=== PATIENT | female | born 1950 | race Caucasian/White ===

== ENCOUNTER 2017-06-25 07:47 | Observation (INO) | payer OTHER ==
[2017-06-25] VITALS (12 sets, daily range): BP systolic 107–152; BP diastolic 58–86; PULSE 60–77; TEMP 36.5–36.9; O2SAT 94–99; BMI 33.0; BMI 34.5
[~2017-06-25] VITALS: Ht 149.9 cm; Wt 75.2 kg
[~2017-06-25 07:47] MED LIST: ASPI-435 PO; ATOR-26 PO; CITA40TA4 PO; CLOP1TAB15 PO; INSDGI SC; ISOS30TA3 PO; LANS30CA41 PO; LISI-725 PO; LISI-789 PO; LPT40 PO; METF-384 PO; METO25TA3 PO; NTRGSL/4 SL; PANT40TA PO; PEDICHW53; PLV75 PO
[2017-06-25] MEDS ORDERED: FENTANYL CITRATE INJ 50 MCG/1 ML 2 ML VIAL ONE (09:36)
[2017-06-25] MEDS ORDERED: MIDAZOLAM HCL 1 MG/ML 2ML VIAL ONE ×2 (09:36→10:33)
[2017-06-25] MEDS ORDERED: NiCARDipine HCL INJ 2.5 MG/ML 10 ML AMP ONE (10:31)
[2017-06-25] MEDS ORDERED: NITROGLYCERIN/D5W 100MCG/ML 20ML SYR ONE (10:31)
[2017-06-25] MEDS ORDERED: HEPARIN SOD (PORCINE) 1000 UNIT/ML 10 ML VIAL ONE (10:35)
--- NOTE | 2017-06-25 10:43 | Procedure Note ---
Pre-Mod Sedation Assessment General Date of Moderate Sedation: Jun 25, 2017. Vital Signs: Vital Signs Past 12 Hours Date Time Temp Pulse Resp B/P (MAP) Pulse Ox O2 Delivery O2 Flow Rate FiO2 06/25/17 08:58 36.5 60 16 152/69 99 Room Air Review Cardiovascular: regular rate, rhythm, no edema, no gallop Abdomen: normal bowel sounds, non tender, soft Lungs: chest non-tender, lungs clear, normal breath sounds Pre-Sedation Airway Assessment Oral Cavity: Chipped Teeth Short Thick Neck: No Hx of Sleep Apnea: No Smoking Status: Former Smoker Mallampati Classification: Class III ASA Classification: Class IV Procedure Planning Contraindications-for Mod Sed: None Yes Notes The planned sedation has been discussed with the patient and consent obtained. I have identified the patient, determined the appropriateness of sedation and have assessed the patient immediately prior to the procedure. All medicine(s) and interventions are by my order.
--- NOTE | 2017-06-25 10:44 | History & Physical Bridge Note ---
H&P Re-Evaluation Bridge Note: I have examined the patient, reviewed the History & Physical and in the interval since the performance of the History & Physical I have noted the following changes of clinical significance: No changes noted
--- NOTE | 2017-06-25 10:45 | Procedure Note ---
Post-Mod Sedation Assessment General Date of Moderate Sedation Jun 25, 2017. Vital Signs: Vital Signs Past 12 Hours Date Time Temp Pulse Resp B/P (MAP) Pulse Ox O2 Delivery O2 Flow Rate FiO2 06/25/17 08:58 36.5 60 16 152/69 99 Room Air Review - Discharge Criteria Vital Signs Stable: Yes Alert/Oriented/Conversant: Yes Returned to Baseline Mental St: Yes Nausea Absent/Minimal: Yes Pain/Discomfort/Absent/Minimal: Yes Normal/Baseline Respirations: Yes Active Bleeding?: No Pt Received D/C Instructions: N/A Prescriptions Given: None Specific Proced. D/C Criteria Distal Pulses Present (Cardiac: Yes Groin site assessed-Card Cath: Yes Voided Prior To Discharge: N/A Discharged Patients Adult Escort/Transportation: Yes
--- NOTE | 2017-06-25 10:59 | Cardiac Catheterization ---
Procedure Note Procedure Date Jun 25, 2017. Pre-Procedure Diagnosis Angina, CAD, Cardiothoracic Symptom AUC Score 8 Post-Procedure Diagnosis Severe CAD Procedure(s) Performed Coronary Angiography, Left Heart Cath Professor Of Medicine Dr. Zamora Shoe Folder(s) Hernan RTR Estimated Blood Loss 8cc Medication(s) Fentanyl, Versed, Lidocaine 1% Summary of Findings Severe ostial RCA in-stent restenosis. 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 ACC Data Cardiac Status Clinical evaluation leading to the procedure CAD Presntation: Unstable angina Anginal Classification: CCS III Heart Failure: No Cardiogenic Shock w/in 24Hrs: No Cardiac Arrest w/in 24Hrs: No Imaging studies past 6 months: No Stress studies past 6 months: No Coronary Anatomy Dominant: Right Left Main (% Stenosis): Normal LAD (% Stenosis): Ostial (0%), Proximal (20%, Mild to moderate calcification.) , Mid (30% to D1), Distal (10%) D1 (% Stenosis): Normal Circumflex (% Stenosis): Ostial (10%), Proximal (10%), Mid (20%), Distal (10%) OM1 (% Stenosis): Ostial (40%), Proximal (0%), Mid (0%), Distal (0%) RCA (% Stenosis): Ostial (80% in-stent restensosis), Proximal (80% in-stent restenosis), Mid (20%), Distal (10%) R PDA (% Stenosis): Ostial (0%), Proximal (10%), Mid (10%), Distal (10%) R PL1 (% Stenosis): Normal Diagnostic Status: Elective Closure Device Percutaneous Entry Location: Femoral Recommendations: PCI without planned CABG Intraprocedure Events Significant Dissection: No Perforation: No
[2017-06-25] MEDS ORDERED: CLOPIDOGREL BISULFATE 300 MG TAB PO ONE (11:47)
[2017-06-25] MEDS ORDERED: ATROPINE SULFATE 0.1 MG/ML 10 ML SYR ONE (11:50)
[2017-06-25] MEDS ORDERED: ONDANSETRON INJ 2 MG/ML 2 ML VIAL IV PRN (12:15)
[2017-06-25] MEDS ORDERED: DEXTROSE 50% 50 ML SYR IV PRN ×2 (12:15→13:00)
[2017-06-25] MEDS ORDERED: GLUCOSE 10 TABS/TUBE PO PRN ×2 (12:15→13:00)
[2017-06-25] MEDS ORDERED: GLUCOSE 40% GEL 15 GM TUBE PO PRN ×2 (12:15→13:00)
[2017-06-25] MEDS ORDERED: SODIUM CHLORIDE 0.9% 1000ML 1,000 ML IV SCH (12:15)
[2017-06-25] MEDS ORDERED: GLUCAGON FOR INJ 1 MG VIAL SQ PRN ×2 (12:15→13:00)
[2017-06-25] MEDS ORDERED: ACETAMINOPHEN 325 MG TAB PO PRN (12:15)
[2017-06-25] MEDS ORDERED: NITROGLYCERIN 0.4 MG SL PER TAB CHARGE SL PRN ×2 (12:15)
--- NOTE | 2017-06-25 13:09 | Cardiac Catheterization ---
Procedure Note Procedure Date Jun 25, 2017. Pre-Procedure Diagnosis Angina, CAD AUC Score 7 Post-Procedure Diagnosis Severe CAD, Successful PCI Procedure(s) Performed Drug Eluting Stent Photolithographic Stripper Jaswant Jazz Musician(s) Hernan Estimated Blood Loss 20 Medication(s) Clopidogrel, Fentanyl, Heparin, Versed Summary of Findings Indication: Angina, In-stent restenosis Access: 6Fr Right Femoral Artery Catheters: JR4, AR1 guides attempted; successful cannulation with Hockey Stick guide For full details of patient's coronary angiography see Cath Report dictated by Dr. Zamora from earlier today. -- PCI -- Antithrombotic therapy: Heparin Procedure: RCA cannulated with Hockey Stick Guide BMW wire passed across lesion into distal vessel Ostial RCA lesion predilated with 2.0 and 3.0 compliant balloons Dilated lesion stented with 3.5 x 22 Resolute NAILA Stent post-dilated with 4.0 noncompliant balloon Stent appears to hang out minimally into the aorta but well-expanded Post procedure LILO 3 flow, and no apparent cardiac complications. Arterial Closure: AngioSeal Summary: 1. Successful PCI of ostial RCA instent restenosis with one drug-eluting stent ( 3.5 x 22 Resolute, post-dilated to 4.0 Recommendations: To PCU for continued monitoring Re-loaded with clopidogrel 300 mg Continue dual-antiplatelet therapy with ASA/clopidogrel for 1 year Continue ASCVD risk factor modification per Dr. Zamora Hemodynamics Rest Ao: 131/64/92 Final Ao: 163/73/108 LV: 140/10 Recommendations PCI without planned CABG Specimens None Radiation Exposure (mGy) 4035 Contrast (mls) 140 Fluids (cc crystalloids) 220 Drains None Anesthesia Moderate Procedural Complication(s) None Disposition PCU ACC Data Cardiac Status Clinical evaluation leading to the procedure CAD Presntation: Unstable angina Anginal Classification: CCS III Heart Failure: No, NYHA Class: CCS I Cardiogenic Shock w/in 24Hrs: No Cardiac Arrest w/in 24Hrs: No Imaging studies past 6 months: No Stress studies past 6 months: No Standard Exercise Stress Test: No Diagnostic Physician's Name: Leo Zamora DO Status: Elective Closure Device Percutaneous Entry Location: Femoral Closure Device: Angio-Seal Recommendations: Medical therapy and/or Counseling PCI Indication: Unstable Angina, Angina despite med therapy Lesion Segment Name: Ostial RCA Culprit Artery: Yes Stenosis Prior to Rx (%): 80 Chronic Total Occlusion: No IVUS: No FFR: No Pre-Procedure LILO Flow: 3 Previously Treated Lesion: Yes Treated Lesion: Timeframe: 6-12 months Treated with Stent: Yes In-Stent Restenosis: Yes In-Stent Thrombosis: No Stent Type: NAILA Lesion Complexity: High/C Lesion Length (mm): 12 Thrombus Present: No Bifurcation Lesion: No Guidewire Across Lesion: Yes Guidewire: Stenosis Post-Procedure (%): 0 Post-Procedure LILO Flow: 3 Device(s) Deployed: Yes Intraprocedure Events Significant Dissection: No Perforation: No
[2017-06-25] MEDS ORDERED: IV FLUIDS COMPLETED PRN (13:45)
[2017-06-25] MEDS ORDERED: INSULIN ASPART 100 UNITS/ML 3 ML PEN SC SCH (16:15)
--- NOTE | 2017-06-25 16:37 | Progress Note ---
Progress Note Date of Service Jun 25, 2017. Progress Note Pt seen and examined s/p PCI to ostial RCA instent restenosis. No complaints. No groin pain. Resting comfortably.
[2017-06-25] MEDS: INSULIN ASPART 100 UNITS/ML 3 ML PEN SC SCH ×2 (17:07→21:13)
--- NOTE | 2017-06-25 19:03 | Medical Consult ---
Consultation Date of Consultation: Jun 25, 2017. Attending Physician: Leo Zamora DO Reason for Consultation: Diabetes management History of Present Illness Patient is a pleasant 66 yo female who was scheduled to undergo cardiac catheterization today; she was found to have 80% occlusion of her previously stented ostial RCA and had a NAILA placed in the same location of the in stent stenosis. She experienced some bradycardia and hypotension after the procedure and was given atropine with improvement in vitals. She feels well other than complaints of SANTILLAN and some dizziness which she feels is improving as the day progresses. Tolerating PO without difficulty, denies any other symptoms at this time. Social History Smoking Status: Former Smoker Housing Status: lives alone Allergies Coded Allergies: Cefuroxime (Verified Allergy, Unknown, HIVES, 04/20/14) Current Inpatient Medications Current Inpatient Medications Medications (Trade) Dose Ordered Sig/Deborah Route Start Time Stop Time Status Last Admin Dose Admin Nitroglycerin (Nitrostat Tab) 0.4 mg UD PRN SL 06/25/17 12:15 07/25/17 12:14 Sodium Chloride 1,000 ml @ 125 mls/hr Q8H IV 06/25/17 12:15 06/25/17 20:14 Ondansetron HCl (Zofran Inj) 4 mg Q6H PRN IV 06/25/17 12:15 07/25/17 12:14 Acetaminophen (Tylenol Tab) 650 mg Q4H PRN PO 06/25/17 12:15 07/25/17 12:14 Aspirin (Ecotrin Tab) 81 mg DAILY PO 06/26/17 09:00 07/26/17 08:59 Atorvastatin Calcium (Lipitor Tab) 80 mg DAILY PO 06/26/17 09:00 07/26/17 08:59 Citalopram Hydrobromide (celeXA TAB) 40 mg DAILY PO 06/26/17 09:00 07/26/17 08:59 Clopidogrel Bisulfate (plAVix TAB) 75 mg DAILY PO 06/26/17 09:00 07/26/17 08:59 Isosorbide Mononitrate (Imdur Ext Rel Tab) 30 mg DAILY PO 06/26/17 09:00 07/26/17 08:59 Metoprolol Succinate (Toprol Xl Tab) 25 mg DAILY PO 06/26/17 09:00 07/26/17 08:59 Pantoprazole Sodium (Protonix Tab) 40 mg DAILY PO 06/26/17 09:00 07/26/17 08:59 Glucose (Glucose 40% Gel) 15-30 GRAMS 15 GRAMS... UD PRN PO 06/25/17 12:15 07/25/17 12:14 Glucose (Glucose Chew Tab) 4-8 Tablets 4 Tabl... UD PRN PO 06/25/17 12:15 07/25/17 12:14 Dextrose (Dextrose 50% 50ML Syringe) 25-50ML OF 50% DW IV FOR... UD PRN IV 06/25/17 12:15 07/25/17 12:14 Glucagon (Glucagon Inj) 1 mg UD PRN SQ 06/25/17 12:15 07/25/17 12:14 Insulin Glargine (Lantus Solostar Pen) 10 units PM SC 06/25/17 21:00 07/25/17 20:59 Insulin Aspart (novoLOG ASPART) SLIDING SCALE If C... ACHS SC 06/25/17 16:15 07/25/17 16:14 06/25/17 17:07 7 UNITS Miscellaneous (Iv Fluids Completed) 1 ea PRN PRN N/A 06/25/17 13:45 06/25/18 13:44 Review of Systems Constitutional: No fever, No chills, No sweats, No weight loss Eyes: No worsening of vision, No eye pain, No redness, No diplopia ENT: No nasal symptoms, No sore throat, No trouble swallowing, No problem reported Respiratory: No cough, No sputum, No wheezing, No shortness of breath, No hemoptysis, No problem reported Cardiovascular: No chest pain, No edema, No claudication, No palpitations Abdomen: No nausea, No vomiting, No diarrhea, No constipation, No GI bleeding Musculoskeletal: No joint pain, No muscle pain, No calf pain Genitourinary - Female: No dysuria, No urinary frequency, No urinary urgency, No urinary incontinence Neurologic: + numbness/tingling, No paralysis, No vertigo, No balance problems Psychiatric: No problem reported Endocrine: No problem reported Hematologic / Lymphatic: No problem reported Integumentary: No problem reported Physical Exam Date Time Temp Pulse Resp B/P (MAP) Pulse Ox O2 Delivery O2 Flow Rate FiO2 06/25/17 17:24 36.7 74 20 131/68 (89) 97 Room Air 06/25/17 16:00 95 Room Air 06/25/17 14:15 36.5 68 16 130/86 (101) 95 Room Air 06/25/17 13:45 36.5 69 16 140/70 (93) 96 Room Air 06/25/17 13:15 36.5 69 16 147/68 (94) 96 Room Air 06/25/17 13:00 36.5 65 16 130/72 (91) 95 Room Air 06/25/17 12:45 36.5 70 16 132/71 (91) 96 Room Air 06/25/17 12:42 36.5 64 16 138/72 Room Air 06/25/17 12:30 36.5 64 16 138/72 (94) 97 Room Air 06/25/17 12:05 72 18 126/71 (89) 94 Room Air 06/25/17 11:50 43 29 89/65 (73) 97 Mask 3 06/25/17 08:58 36.5 60 16 152/69 99 Room Air General Appearance: WD/WN, no apparent distress Head: normocephalic, atraumatic Eyes: PERRL, EOMI, sclerae normal ENT: hearing grossly normal Neck: supple, no JVD, no carotid bruits, trachea midline Respiratory/Chest: chest non-tender, lungs clear, normal breath sounds, no respiratory distress Cardiovascular: regular rate, rhythm, no edema, no gallop, no JVD, normal peripheral pulses, + pertinent finding (right groin site tender, no bleeding or erythema) Abdomen/GI: normal bowel sounds, non tender, soft, no organomegaly Extremities/Musculoskelatal: no calf tenderness, normal capillary refill, no pedal edema Neurologic/Psych: no motor/sensory deficits, alert, normal mood/affect, oriented x 3 Skin: normal color, warm/dry, no rash Laboratory Results Last 24 Hours Test 06/25/17 11:00 06/25/17 12:31 06/25/17 16:22 Kaolin Activated Coagulation Time 246 SECONDS Bedside Glucose 141 mg/dl 148 mg/dl Assessment & Plan CAD: -underwent a cardiac cath today showing ostial RCA in-stent stenosis, 80% occlusion, s/p NAILA to the occlusion -continued on ASA and plavix -continued on statin + BB + nitrate -Cardiology managing DM TYPE II: -hold metformin (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
[2017-06-25] MEDS ORDERED: INSULIN GLARGINE SOLOSTAR 100 UNITS/ML 3 ML PEN SC SCH ×2 (21:00)
[2017-06-26 00:13] VITALS: BP 121/64; PULSE 69; TEMP 36.8; O2SAT 97
[2017-06-26 04:47] VITALS: BP 125/61; PULSE 72; TEMP 36.7; O2SAT 97
[2017-06-26 05:59] LABS: BASO % 0.6 %; BASO ABS # 0.04 K/uL (0-0.2); COMPLETE YES; EOS % 2.1 %; HEMATOCRIT 36.8 % (37-47); IG% 0.3 %; LYMPH % 27.6 %; MEAN CELL VOLUME 91.3 fL (80-100); MEAN CORPUSCULAR HEMOGLOBIN 30.3 pg (25-34); MEAN CORPUSCULAR HGB CONC 33.2 g/dl (32-36); MEAN PLATELET VOLUME 11.2 fL (7.4-10.4); MONO % 11.6 %; NEUT % 57.8 %; PLATELET COUNT 190 K/uL (130-400); RED BLOOD COUNT 4.03 M/uL (4.2-5.4); WHITE BLOOD COUNT 7.24 K/uL (4.8-10.8)
[2017-06-26 06:28] LABS: BUN/CREATININE RATIO 16.3 (10-20); CALCIUM 8.8 mg/dl (8.5-10.1); CREATININE 0.9 mg/dl (0.60-1.20); POTASSIUM 4.5 mmol/L (3.5-5.1)
[2017-06-26 06:37] LABS: ESTIMATED AVERAGE GLUCOSE 220 mg/dl; HA1C FLAG Normal (Normal)
[2017-06-26 07:31] VITALS: BP 142/69; PULSE 78; TEMP 36.8; O2SAT 95
[2017-06-26] MEDS: INSULIN ASPART 100 UNITS/ML 3 ML PEN SC SCH ×2 (07:53→11:47)
--- NOTE | 2017-06-26 08:17 | Cardiology Follow-Up ---
Subjective Subjective Date of Service: Jun 26, 2017. Pt evaluation today including: conversation w/ patient, physical exam, chart review, lab review, review of studies, review of inpatient medication list Additional Details: Called by nursing this AM, Pt with visual changes. Reports that she feels fine but that the vision in her right eye is off, it's blurred and with double vision. No focal findings. No change in left eye vision. States that she's had similar episodes in the past with inner ear infections but does not believe she has an infection. Tele reviewed: sinus rhythm without arrhythmia or significant ectopy. Review of Systems Respiratory: No see HPI, No cough, No sputum, No wheezing, No shortness of breath, No dyspnea on exertion, No dyspnea at rest, No hemoptysis, No problem reported Cardiac: No see HPI, No chest pain, No orthopnea, No PND, No edema, No claudication, No palpitations, No problem reported Objective Vital Signs Last Vital Signs Documentation Date Time Temp Pulse Resp B/P (MAP) Pulse Ox O2 Delivery O2 Flow Rate FiO2 06/26/17 07:31 36.8 78 19 142/69 (93) 95 Room Air 06/25/17 20:00 3.0 Physical Exam: General Appearance: WD/WN, no apparent distress Eyes: bilateral eyes normal inspection, bilateral eyes PERRL, bilateral eyes EOMI ENT: normal ENT inspection, hearing grossly normal, pharynx normal Neck: supple, no adenopathy, thyroid normal, no JVD, no carotid bruits, trachea midline Respiratory/Chest: chest non-tender, lungs clear, normal breath sounds, no respiratory distress Cardiovascular: regular rate, rhythm, no edema, no JVD, no murmur, + gallop/S4 Abdomen: normal bowel sounds, non tender, soft, no organomegaly, no pulsatile mass Extremities: normal range of motion, non-tender, normal inspection, no pedal edema, no calf tenderness Neurologic/Psychiatric: gravedigger II-XII nml as tested, no motor/sensory deficits, alert, normal mood/affect, oriented x 3 Skin: normal color, warm/dry, no rash Lymphatic: no adenopathy Assessment and Plan 1. CAD s/p PCI for instent restenosis of ostial RCA lesion procedure went well with good result cont asa, plavix, metoprolol, imdur, and atorvastatin 2. visual change no other focal findings obviously timing is concerning stat CT of the head unremarkable will ask neurology to evaluate will hold d/c for now
[2017-06-26] MEDS ORDERED: ATORVASTATIN 40 MG TAB PO SCH (09:00)
[2017-06-26] MEDS ORDERED: CITALOPRAM 40 MG TAB PO SCH (09:00)
[2017-06-26] MEDS ORDERED: CLOPIDOGREL BISULFATE 75 MG TAB PO SCH (09:00)
[2017-06-26] MEDS ORDERED: ISOSORBIDE MONONITRATE 30 MG TABCR PO SCH (09:00)
[2017-06-26] MEDS ORDERED: PANTOprazole SOD 40 MG TAB PO SCH (09:00)
[2017-06-26] MEDS ORDERED: METOPROLOL SUCC 25MG EXT REL TAB PO SCH (09:00)
[2017-06-26] MEDS ORDERED: ASPIRIN 81 MG ECTAB PO SCH (09:00)
--- NOTE | 2017-06-26 09:07 | Procedure Note ---
Pre-Mod Sedation Assessment General Date of Moderate Sedation: Jun 26, 2017. Vital Signs: Vital Signs Past 12 Hours Date Time Temp Pulse Resp B/P (MAP) Pulse Ox O2 Delivery O2 Flow Rate FiO2 06/26/17 08:00 Room Air 06/26/17 07:31 36.8 78 19 142/69 (93) 95 Room Air 06/26/17 04:47 36.7 72 18 125/61 (82) 97 Room Air 06/26/17 04:00 Room Air 06/26/17 00:13 36.8 69 18 121/64 (83) 97 Room Air 06/25/17 23:59 Room Air Review Cardiovascular: regular rate, rhythm, no edema, no gallop, no JVD, no murmur, normal peripheral pulses Abdomen: normal bowel sounds, non tender, soft, no organomegaly, no pulsatile mass Lungs: chest non-tender, lungs clear, normal breath sounds, no respiratory distress, no accessory muscle use Airway Class: II Pre-Sedation Airway Assessment Oral Cavity: Chipped Teeth Short Thick Neck: No Hx of Sleep Apnea: No Smoking Status: Former Smoker Notes The planned sedation has been discussed with the patient and consent obtained. I have identified the patient, determined the appropriateness of sedation and have assessed the patient immediately prior to the procedure. All medicine(s) and interventions are by my order.
--- NOTE | 2017-06-26 09:07 | Procedure Note ---
Post-Mod Sedation Assessment General Date of Moderate Sedation Jun 26, 2017. Vital Signs: Vital Signs Past 12 Hours Date Time Temp Pulse Resp B/P (MAP) Pulse Ox O2 Delivery O2 Flow Rate FiO2 06/26/17 08:00 Room Air 06/26/17 07:31 36.8 78 19 142/69 (93) 95 Room Air 06/26/17 04:47 36.7 72 18 125/61 (82) 97 Room Air 06/26/17 04:00 Room Air 06/26/17 00:13 36.8 69 18 121/64 (83) 97 Room Air 06/25/17 23:59 Room Air Review - Discharge Criteria Vital Signs Stable: Yes Alert/Oriented/Conversant: Yes Returned to Baseline Mental St: Yes Nausea Absent/Minimal: Yes Pain/Discomfort/Absent/Minimal: Yes Normal/Baseline Respirations: Yes Active Bleeding?: No Pt Received D/C Instructions: N/A Prescriptions Given: None Specific Proced. D/C Criteria Distal Pulses Present (Cardiac: Yes Groin site assessed-Card Cath: Yes Voided Prior To Discharge: N/A Discharged Patients Adult Escort/Transportation: Yes
--- NOTE | 2017-06-26 09:12 | DIAGNOSTIC IMAGING REPORT ---
HEAD WITHOUT CONTRAST (CT) CT DOSE: 690.05 mGycm HISTORY: Headache visual changes TECHNIQUE: Multiaxial CT images of the head were performed without the use of intravenous contrast. A dose lowering technique was utilized adhering to the principles of ALARA. Comparison: None. Findings: The paranasal sinuses and mastoid air cells are clear. The calvarium and skull base are intact. The ventricles and sulci are within normal limits. There is no mass, hematoma, midline shift, or acute infarct. Impression: No acute intracranial abnormality. The above report was generated using voice recognition software. It may contain grammatical, syntax or spelling errors. Electronically signed by: Jermaine Rubio M.D. 06/26/2017 9:10 AM Dictated Date/Time: 06/26/2017 9:09 AM
--- NOTE | 2017-06-26 11:09 | Neurology Consultation ---
Neurology Consultation Date of Consultation: Jun 26, 2017. Attending Physician: Leo Zamora DO Primary Care Physician: Kane Soriano M.D. Reason for Consultation: visual changes s/p cardiac cath History of Present Illness Source: patient Bethanie is a 66 yo female underwent cardiac catheterization. She was found to have 80% occlusion of her previously stented ostial RCA and had a NAILA placed in the same location of the in stent stenosis. She experienced some bradycardia and hypotension after the procedure and was given atropine with improvement in vitals. She feels well other than complaints of SANTILLAN and some dizziness which she feels is improving as the day progresses. She states she has a history of vertigo but this was different. It was a "horizontal blurring doubling" of vision in both eyes but the left has resolved and now it is just the right. She states the headache has resolved. She was a previous smoker quit in 1989, EtOH when younger but very limited, and no other drugs. She has uncontrolled DM 2, HTN, dyslipidemia, CAD, peripheral neuropathy. denies falls, CP, SOB, abdominal pain, weakness, slurred speech, swallow difficulties, loss of vision or tunnel vision Social History Smoking Status: Former smoker Smokeless Tobacco Use: No Alcohol Use: none Drug Use: none Housing Status: lives alone Allergies Coded Allergies: Cefuroxime (Verified Allergy, Unknown, HIVES, 04/20/14) Current Inpatient Medications Current Inpatient Medications Medications (Trade) Dose Ordered Sig/Deborah Route Start Time Stop Time Status Last Admin Dose Admin Nitroglycerin (Nitrostat Tab) 0.4 mg UD PRN SL 06/25/17 12:15 07/25/17 12:14 Ondansetron HCl (Zofran Inj) 4 mg Q6H PRN IV 06/25/17 12:15 07/25/17 12:14 Acetaminophen (Tylenol Tab) 650 mg Q4H PRN PO 06/25/17 12:15 07/25/17 12:14 06/25/17 20:20 650 MG Aspirin (Ecotrin Tab) 81 mg DAILY PO 06/26/17 09:00 07/26/17 08:59 06/26/17 07:49 81 MG Atorvastatin Calcium (Lipitor Tab) 80 mg DAILY PO 06/26/17 09:00 07/26/17 08:59 06/26/17 07:48 80 MG Citalopram Hydrobromide (celeXA TAB) 40 mg DAILY PO 06/26/17 09:00 07/26/17 08:59 06/26/17 07:48 40 MG Clopidogrel Bisulfate (plAVix TAB) 75 mg DAILY PO 06/26/17 09:00 07/26/17 08:59 06/26/17 07:48 75 MG Isosorbide Mononitrate (Imdur Ext Rel Tab) 30 mg DAILY PO 06/26/17 09:00 07/26/17 08:59 06/26/17 07:48 30 MG Metoprolol Succinate (Toprol Xl Tab) 25 mg DAILY PO 06/26/17 09:00 07/26/17 08:59 06/26/17 07:49 25 MG Pantoprazole Sodium (Protonix Tab) 40 mg DAILY PO 06/26/17 09:00 07/26/17 08:59 06/26/17 07:49 40 MG Glucose (Glucose 40% Gel) 15-30 GRAMS 15 GRAMS... UD PRN PO 06/25/17 12:15 07/25/17 12:14 Glucose (Glucose Chew Tab) 4-8 Tablets 4 Tabl... UD PRN PO 06/25/17 12:15 07/25/17 12:14 Dextrose (Dextrose 50% 50ML Syringe) 25-50ML OF 50% DW IV FOR... UD PRN IV 06/25/17 12:15 07/25/17 12:14 Glucagon (Glucagon Inj) 1 mg UD PRN SQ 06/25/17 12:15 07/25/17 12:14 Insulin Glargine (Lantus Solostar Pen) 10 units PM SC 06/25/17 21:00 07/25/17 20:59 06/25/17 21:14 10 UNITS Insulin Aspart (novoLOG ASPART) SLIDING SCALE If C... ACHS SC 06/25/17 16:15 07/25/17 16:14 06/26/17 07:53 4 UNITS Miscellaneous (Iv Fluids Completed) 1 ea PRN PRN N/A 06/25/17 13:45 06/25/18 13:44 Physical Exam Vital Signs (Past 24 Hrs): Date Time Temp Pulse Resp B/P (MAP) Pulse Ox O2 Delivery O2 Flow Rate FiO2 06/26/17 08:00 Room Air 06/26/17 07:31 36.8 78 19 142/69 (93) 95 Room Air 06/26/17 04:47 36.7 72 18 125/61 (82) 97 Room Air 06/26/17 04:00 Room Air 06/26/17 00:13 36.8 69 18 121/64 (83) 97 Room Air 06/25/17 23:59 Room Air 06/25/17 20:00 95 Room Air 06/25/17 20:00 Room Air 3.0 06/25/17 19:05 36.9 77 20 107/58 (74) 94 Room Air 06/25/17 17:24 36.7 74 20 131/68 (89) 97 Room Air 06/25/17 16:00 95 Room Air 06/25/17 14:15 36.5 68 16 130/86 (101) 95 Room Air 06/25/17 13:45 36.5 69 16 140/70 (93) 96 Room Air 06/25/17 13:15 36.5 69 16 147/68 (94) 96 Room Air 06/25/17 13:00 36.5 65 16 130/72 (91) 95 Room Air 06/25/17 12:45 36.5 70 16 132/71 (91) 96 Room Air 06/25/17 12:42 36.5 64 16 138/72 Room Air 06/25/17 12:30 36.5 64 16 138/72 (94) 97 Room Air 06/25/17 12:05 72 18 126/71 (89) 94 Room Air 06/25/17 11:50 43 29 89/65 (73) 97 Mask 3 Physical Exam: Constitutional:appearance nourished, healthy and normal Ears, Nose, Mouth and Throat: mucous membranes moist, no injection and skin normal, eyes normal Cardiovascular: normal S-1 and S-2 and regular rate and rhythm Respiratory: clear to auscultation (CTA) and no rales, rhonchi or wheeze Musculoskeletal: no peripheral edema and good distal pulses Skin: no stigmata of neurocutaneous disease noted and normal and intact Eyes: extraocular muscles intact (EOMI) and pupils equal, round and reactive to light (PERRL), good vascular pulsations, gross peripheral vision in tact NEUROLOGIC EXAMINATION: Mental status: Alert and interactive Oriented to full date and location Oriented to person Speech fluent with no evidence of aphasia Cranial Nerves smile eye brow raise symmetric, tongue midline Reflexes: Deep tendon reflexes were symmetrical and graded 2/5. Plantar responses were flexor. Sensory: decreased sensation to vibration, GT proprioception (unsure of position) Coordination: finger to nose no bipass, repetitive hand movement in take Gait/Stance: Posture normal. Gait normal: with steady with steps, base, turning, and tandem gait. Motor: Negative for pronator drift of out stretched arms with eyes closed. Strength: biceps triceps, hand title agent bilaterally 5/5, hip flex plantar flex ext 5/5 bilaterally Laboratory Results Past 24 Hours: 06/26/17 05:16 Red Blood Count 4.03, Mean Corpuscular Volume 91.3, Mean Corpuscular Hemoglobin 30.3, Mean Corpuscular Hemoglobin Concent 33.2, Mean Platelet Volume 11.2, Neutrophils (%) (Auto) 57.8, Lymphocytes (%) (Auto) 27.6, Monocytes (%) (Auto) 11.6, Eosinophils (%) (Auto) 2.1, Basophils (%) (Auto) 0.6, Neutrophils # (Auto ) 4.19, Lymphocytes # (Auto) 2.00, Monocytes # (Auto) 0.84, Eosinophils # (Auto ) 0.15, Basophils # (Auto) 0.04 06/26/17 05:16 Test 06/25/17 11:00 06/26/17 05:16 06/26/17 06:46 Kaolin Activated Coagulation Time 246 SECONDS (94-140) White Blood Count 7.24 K/uL (4.8-10.8) Red Blood Count 4.03 M/uL (4.2-5.4) Hemoglobin 12.2 g/dL (12.0-16.0) Hematocrit 36.8 % (37-47) Mean Corpuscular Volume 91.3 fL (80-100) Mean Corpuscular Hemoglobin 30.3 pg (25-34) Mean Corpuscular Hemoglobin Concent 33.2 g/dl (32-36) Platelet Count 190 K/uL (130-400) Mean Platelet Volume 11.2 fL (7.4-10.4) Neutrophils (%) (Auto) 57.8 % Lymphocytes (%) (Auto) 27.6 % Monocytes (%) (Auto) 11.6 % Eosinophils (%) (Auto) 2.1 % Basophils (%) (Auto) 0.6 % Neutrophils # (Auto) 4.19 K/uL (1.4-6.5) Lymphocytes # (Auto) 2.00 K/uL (1.2-3.4) Monocytes # (Auto) 0.84 K/uL (0.11-0.59) Eosinophils # (Auto) 0.15 K/uL (0-0.5) Basophils # (Auto) 0.04 K/uL (0-0.2) RDW Standard Deviation 45.3 fL (36.4-46.3) RDW Coefficient of Variation 13.6 % (11.5-14.5) Immature Granulocyte % (Auto) 0.3 % Immature Granulocyte # (Auto) 0.02 K/uL (0.00-0.02) Anion Gap 3.0 mmol/L (3-11) Est Creatinine Clear Calc Drug Dose 55.1 ml/min Estimated GFR () 77.8 Estimated GFR (Non- 67.1 BUN/Creatinine Ratio 16.3 (10-20) Estimated Average Glucose 220 mg/dl Hemoglobin A1c 9.3 % (4.5-5.6) Calcium Level 8.8 mg/dl (8.5-10.1) Bedside Glucose 144 mg/dl (70-90) Imaging CT head- No acute intracranial abnormality. Impression 66 year old female s/p cardiac cath with blurring of vision Plan 1. CT head no findings 2. currently on plavix 75 mg, lipitor 80 mg, aspirin 81 mg daily 3. DM, DL, blood pressure control needs to be optimized 4. does not appear to have any discharge needs 5. fall precautions if continues to have vision issues 6. will need a ophthalmology out patient follow up 7. MRI brain with and without contrast once she is out of the cardiac post operative period which would restrict having this done 8. CTA with and without head and neck for vascular issues I have seen and discussed above patient with Dr Celio Whaley, neurology Patient discussed with Mayelin ESTEVEZ but was dischsrged prio to my arrival in the hospital Based on chart review and above notes I agree with the recommendations and plan We can see her in neurology if needed depending on how she does clinically in the future and follow up on the above recommended studies Celio Whaley MD
[2017-06-26 11:45] VITALS: BP 131/73; PULSE 72; TEMP 36.7; O2SAT 97
[2017-06-26 12:00] VITALS: Ht 149.9 cm; Wt 75.2 kg
[2017-06-26] MEDS ORDERED: CLOP1TAB15 PO (12:54)
--- NOTE | 2017-06-26 12:57 | Discharge Instructions ---
Discharge Instructions Date of Service Jun 26, 2017. Admission Reason for Admission: Coronary Artery Disease W/Angina*Dr Zamora Doing Discharge Discharge Diagnosis / Problem: coronary artery disease Discharge Goals Goal(s): Decrease discomfort, Improve function Activity Recommendations Activity Limitations: resume your previous activity Lifting Limitations: none Exercise/Sports Limitations: none May Resume Sexual Activity: when tolerated Shower/Bathe: no limitations Driving or Machine Use: as tolerated with vision . Instructions / Follow-Up Instructions / Follow-Up Follow up with Dr. Gordon in 1 month F/u with PCP in 1 week for vision change and MRI F/u with opthalmologist Current Hospital Diet Patient's current hospital diet: Diabetes Type 2 Diet, AHA Diet (Heart Healthy) Discharge Diet Recommended Diet: Diabetes Type 2 Diet, Low Fat Diet Procedures Procedures Performed: PCI to RCA for instent restenosis Pending Studies Studies pending at discharge: no Laboratory Results Hemoglobin A1c Test 06/26/17 05:16 Range/Units Estimated Average Glucose 220 mg/dl Hemoglobin A1c 9.3 H 4.5-5.6 % Medical Emergencies . Who to Call and When: Medical Emergencies: If at any time you feel your situation is an emergency, please call 911 immediately. . Non-Emergent Contact Non-Emergency issues call your: Primary Care Provider . . "Provider Documentation" section prepared by Michelet Azul. . VTE Core Measure Inpt VTE Proph given/why not?: Treatment not indicated
[2017-06-26 13:19] VITALS: BP 131/73; PULSE 72; TEMP 36.7; O2SAT 97
--- NOTE | 2017-06-26 13:43 | Discharge Summary ---
Discharge Summary Date of Service Jun 26, 2017. Discharge Summary Admission Date: Jun 25, 2017 at 12:23 Discharge Date: Jun 26, 2017 Discharge Disposition: Home Primary Diagnosis: CAD with RCA instent restenosis Secondary Diagnoses/Problems: visual change vertigo Procedures: PCI to RCA with NAILA Consultations: Neurology, Dr. Whaley. Discharge Instructions Last Recorded Wt (Kilograms): 75.200 Activity Recommendations: no limitations Return to School/Work: no limitations Diet At Discharge: Low Fat, Diabetic AHA Phase I Allergies: Coded Allergies: Cefuroxime (Verified Allergy, Unknown, HIVES, 04/20/14) Home Health Services: none Special Care: Call your doctor if: * Temperature above 101 degrees * Pain not relieved by pain medicine ordered * There is increased drainage or redness from any incision * You have any unanswered questions or concerns. Avoid all tobacco products. If you need help to stop smoking, call [facility] FREE QUITLINE at . This is a free call. Hospital Course 1. CAD s/p PCI for instent restenosis of ostial RCA lesion procedure went well with good result cont asa, plavix, metoprolol, imdur, and atorvastatin 2. visual change no other focal findings obviously timing is concerning evaluated by neurology, do not believe to be a central event f/u with pcp and opthalmology Total time spent on discharge = This includes examination of the patient, discharge planning, medication reconciliation, and communication with other providers.
--- NOTE | 2017-06-26 16:11 | Progress Note ---
Internal Med Progress Note Date of Service: Jun 26, 2017. Provider Documentation: SUBJECTIVE: sitting comfortably on the chair complains of some dizziness on right side when she moves her head afebrile ]no chest pain or sob no nausea OBJECTIVE: Vital Signs-as noted below Exam: General-alert and oriented. Not in distress ENT-Normal hearing Neck-no neck masses supple Lungs-cta b/l no wheezing no crackles present Heart-s1 and s2 heard regular rate and rhythm no murmurs Abdomen-soft bowel sounds present non tender no distension Extremities- no pedal edema present no erythema Neuro-alert and oriented moves extremities non focal Lab data as noted below. ASSESSMENT & PLAN: CAD: -underwent a cardiac cath yesterday showing ostial RCA in-stent stenosis, 80% occlusion, s/p NAILA to the occlusion on ASA and plavix on statin + BB + nitrate management as per cardiology Dizziness post cath one right side on moving head ct head unremarkable seen by neurology and appreciate inputs Neuro- recommends opthomology followup and MR/MRA head when ever feasible and neuro followup if needed. 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 discharged Vital Signs: Date Time Temp Pulse Resp B/P (MAP) Pulse Ox O2 Delivery O2 Flow Rate FiO2 06/26/17 13:19 36.7 72 18 97 Room Air 06/26/17 12:00 Room Air 06/26/17 11:45 36.7 72 18 131/73 (92) 97 Room Air 06/26/17 08:00 Room Air 06/26/17 07:31 36.8 78 19 142/69 (93) 95 Room Air 06/26/17 04:47 36.7 72 18 125/61 (82) 97 Room Air 06/26/17 04:00 Room Air 06/26/17 00:13 36.8 69 18 121/64 (83) 97 Room Air 06/25/17 23:59 Room Air 06/25/17 20:00 95 Room Air 06/25/17 20:00 Room Air 3.0 06/25/17 19:05 36.9 77 20 107/58 (74) 94 Room Air 06/25/17 17:24 36.7 74 20 131/68 (89) 97 Room Air Lab Results: Results Past 24 Hours Test 06/25/17 16:22 06/25/17 20:30 06/26/17 05:16 06/26/17 06:46 Range/Units Bedside Glucose 148 167 144 70-90 mg/dl White Blood Count 7.24 4.8-10.8 K/uL Red Blood Count 4.03 4.2-5.4 M/uL Hemoglobin 12.2 12.0-16.0 g/dL Hematocrit 36.8 37-47 % Mean Corpuscular Volume 91.3 80-100 fL Mean Corpuscular Hemoglobin 30.3 25-34 pg Mean Corpuscular Hemoglobin Concent 33.2 32-36 g/dl Platelet Count 190 130-400 K/uL Mean Platelet Volume 11.2 7.4-10.4 fL Neutrophils (%) (Auto) 57.8 % Lymphocytes (%) (Auto) 27.6 % Monocytes (%) (Auto) 11.6 % Eosinophils (%) (Auto) 2.1 % Basophils (%) (Auto) 0.6 % Neutrophils # (Auto) 4.19 1.4-6.5 K/uL Lymphocytes # (Auto) 2.00 1.2-3.4 K/uL Monocytes # (Auto) 0.84 0.11-0.59 K/uL Eosinophils # (Auto) 0.15 0-0.5 K/uL Basophils # (Auto) 0.04 0-0.2 K/uL RDW Standard Deviation 45.3 36.4-46.3 fL RDW Coefficient of Variation 13.6 11.5-14.5 % Immature Granulocyte % (Auto) 0.3 % Immature Granulocyte # (Auto) 0.02 0.00-0.02 K/uL Sodium Level 141 136-145 mmol/L Potassium Level 4.5 3.5-5.1 mmol/L Chloride Level 108 98-107 mmol/L Carbon Dioxide Level 30 21-32 mmol/L Anion Gap 3.0 3-11 mmol/L Blood Urea Nitrogen 15 7-18 mg/dl Creatinine 0.90 0.60-1.20 mg/dl Est Creatinine Clear Calc Drug Dose 55.1 ml/min Estimated GFR () 77.8 Estimated GFR (Non- 67.1 BUN/Creatinine Ratio 16.3 10-20 Random Glucose 163 70-99 mg/dl Estimated Average Glucose 220 mg/dl Hemoglobin A1c 9.3 4.5-5.6 % Calcium Level 8.8 8.5-10.1 mg/dl Test 06/26/17 11:01 Range/Units Bedside Glucose 163 70-90 mg/dl
== END 2017-06-26 14:00 | disposition home or self-care (01) ==
LOC: C.CATH 07:47 → ENRESERV 10:59 → C.2E 12:23 → INTOOBSV 12:23
PROVIDERS: ADMIT Internal Medicine Cardiovascular Disease; ATTEND Internal Medicine Cardiovascular Disease
DX: I25.10 Atherosclerotic heart disease of native coronary artery without angina pectoris (principal); I20.9 Angina pectoris, unspecified; I10 Essential (primary) hypertension; E78.5 Hyperlipidemia, unspecified; K21.9 Gastro-esophageal reflux disease without esophagitis; F41.1 Generalized anxiety disorder; E11.9 Type 2 diabetes mellitus without complications; K76.0 Fatty (change of) liver, not elsewhere classified; Z85.3 Personal history of malignant neoplasm of breast; Z80.3 Family history of malignant neoplasm of breast; Z95.5 Presence of coronary angioplasty implant and graft; Z80.7 Family history of other malignant neoplasms of lymphoid, hematopoietic and related tissues; Z83.3 Family history of diabetes mellitus; Z82.49 Family history of ischemic heart disease and other diseases of the circulatory system; Z87.891 Personal history of nicotine dependence
CPT/HCPCS: 93458; C9600

== ENCOUNTER 2018-01-24 06:31 | Inpatient (IN) | payer OTHER ==
[~2018-01-24] VITALS: Ht 149.9 cm; Wt 83.0 kg
[~2018-01-24 06:31] MED LIST changes: -LANS30CA41 PO; -LISI-725 PO; -LISI-789 PO; -LPT40 PO; -PEDICHW53; -PLV75 PO
[2018-01-24] MEDS ORDERED: ASPIRIN 81 MG CHEW PO STA (06:46)
[2018-01-24] MEDS ORDERED: LORAZEPAM 0.5 MG TAB SL STA (06:50)
--- NOTE | 2018-01-24 06:54 | EMERGENCY ROOM VISIT NOTE ---
History Report prepared by Chinibrenetta: Maranda Zacarias Under the Supervision of: Dr. Shreya Zuleta M.D. First contact with patient: 06:38 Chief Complaint: CHEST PAIN Stated Complaint: CHEST PRESSURE/SHORTNESS OF BREATH Nursing Triage Summary: pt reports constant chest pressure starting yesterday that worsenend when she got up at 0400.pt reports feeling like she was going to pass out. pt reports SOB, Nausea and diaphoresis. pt had stress test done last week that was normal. hx IDDM, HTN, CAD, high cholesterol, Right sided brest CA with bilateral mastectomy. 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 History of Present Illness The patient is a 67 year old female who presents to the Emergency Room with complaints of persistent chest pain that began around 0345 this morning. She states she got up to use the bathroom early this morning and experienced a near syncopal episode. The room "brightened" and she developed chest pain, nausea, diaphoresis and shortness of breath. She did not lose consciousness during the episode. She was able to get back to her bed and called EMS. She then took a Nitroglycerin which decreased her chest pain from a 10/10 to a 3/10 in severity. The patient reports her breathing has also been "heavy" recently. She denies any recent leg swelling or weight gain. She notes she did undergo a chemical stress test on December 20, 2017 that was "normal". The patient denies any recent fevers or cough but admits to some sinus pressure for the past few days. She denies any abdominal pain and has not vomited. The patient notes she did have her gallbladder evaluated several years ago, but has not had any recent abdominal evaluation. Source of History: patient Onset: 0345 this morning Position: abdomen Symptom Intensity: 3/10 to 10/10 Timing: other (persistent) Modifying Factors (Relieving): other (Nitroglycerin) Associated Symptoms: + diaphoresis, + SOB, + nausea, No LOC, No fevers, No cough, No vomiting, No abdominal pain Review of Systems See HPI for pertinent positives & negatives. A total of 10 systems reviewed and were otherwise negative. Past Medical & Surgical Medical Problems: (1) Anxiety (2) Breast cancer (3) CAD (coronary artery disease) (4) DM type 2 (diabetes mellitus, type 2) (5) Dyslipidemia (6) GERD (gastroesophageal reflux disease) (7) HTN (hypertension) Surgical Problems: (1) History of bilateral mastectomy (2) History of hysterectomy Social History Smoking Status: Former Smoker Alcohol Use: none Drug Use: none Marital Status: Housing Status: lives alone Occupation Status: retired Current/Historical Medications Scheduled Acetaminophen (Tylenol), 500 MG PO UD Aspirin (Aspirin 81), 81 MG PO HS Atorvastatin (Lipitor), 1 TAB PO HS Citalopram (Citalopram Hydrobromide), 1 TAB PO HS Clopidogrel (Plavix), 75 MG PO 0900 Insulin Glargine (Lantus), 18 UNITS SC PM Isosorbide Mononitrate Ext Rel (Imdur Ext Rel), 1 TAB PO QAM Metformin Hcl (Glucophage), 1,000 MG PO BIDM Metoprolol Succ (Toprol Xl) (Toprol-Xl), 25 MG PO HS Pantoprazole (Protonix), 40 MG PO QAM Scheduled PRN Nitroglycerin (Nitrostat), 1 TAB SL UD PRN for Chest Pain Allergies Coded Allergies: Cefuroxime (Verified Allergy, Unknown, HIVES, 04/20/14) Physical Exam Vital Signs Date Time Temp Pulse Resp B/P (MAP) Pulse Ox O2 Delivery O2 Flow Rate FiO2 01/24/18 07:40 64 18 128/68 99 01/24/18 07:24 57 01/24/18 06:45 100 Room Air 01/24/18 06:40 36.7 55 24 110/57 100 Room Air Physical Exam Vital signs reviewed. General: Anxious and tearful-appearing 67 year old female, in no significant distress. HEENT: No scleral icterus, PERRLA, neck supple. Atraumatic. Cardiovascular: Regular rate and rhythm, no extra sounds. Pulmonary: Clear to auscultation bilaterally, normal work of breathing. Abdomen: Soft, nontender, nondistended, positive bowel sounds. Musculoskeletal: Atraumatic, no peripheral edema. Neurologic: Patient awake alert and oriented x 3. Skin: Warm, dry, no rash Medical Decision & Procedures ER Provider Diagnostic Interpretation: Radiology results as stated below per my review and radiologist interpretation: SINGLE VIEW CHEST CLINICAL HISTORY: Dyspnea. Atypical chest pain. FINDINGS: An AP, portable, upright chest radiograph is compared to study dated 04/20/2014. The examination is degraded by portable technique and patient rotation. The cardiomediastinal silhouette is unremarkable. There is atherosclerotic calcification of the thoracic aorta. The lungs and pleural spaces are clear. No pneumothorax is seen. The skeletal structures appear osteopenic. The bony thorax is grossly intact. Surgical clips are noted in the right axilla. The central venous infusion port has been removed from 2013. IMPRESSION: No acute cardiopulmonary abnormality. Electronically signed by: Azam Rodriguez M.D. 01/24/2018 7:19 AM Laboratory Results Test 01/24/18 06:40 01/24/18 07:10 Immature Granulocyte % (Auto) 0.2 % White Blood Count 9.12 K/uL (4.8-10.8) Red Blood Count 4.38 M/uL (4.2-5.4) Hemoglobin 13.3 g/dL (12.0-16.0) Hematocrit 38.7 % (37-47) Mean Corpuscular Volume 88.4 fL (80-100) Mean Corpuscular Hemoglobin 30.4 pg (25-34) Mean Corpuscular Hemoglobin Concent 34.4 g/dl (32-36) Platelet Count 235 K/uL (130-400) Mean Platelet Volume 10.9 fL (7.4-10.4) Neutrophils (%) (Auto) 58.4 % Lymphocytes (%) (Auto) 30.0 % Monocytes (%) (Auto) 9.4 % Eosinophils (%) (Auto) 1.6 % Basophils (%) (Auto) 0.4 % Neutrophils # (Auto) 5.31 K/uL (1.4-6.5) Lymphocytes # (Auto) 2.74 K/uL (1.2-3.4) Monocytes # (Auto) 0.86 K/uL (0.11-0.59) Eosinophils # (Auto) 0.15 K/uL (0-0.5) Basophils # (Auto) 0.04 K/uL (0-0.2) Immature Granulocyte # (Auto) 0.02 K/uL (0.00-0.02) Prothrombin Time 10.7 SECONDS (9.0-12.0) Prothromb Time International Ratio 1.0 (0.9-1.1) Total Bilirubin 0.3 mg/dl (0.2-1) Direct Bilirubin 0.1 mg/dl (0-0.2) Aspartate Amino Transf (AST/SGOT) 35 U/L (15-37) Alanine Aminotransferase (ALT/SGPT) 42 U/L (12-78) Alkaline Phosphatase 101 U/L (45-117) Total Creatine Kinase 185 U/L (26-192) Creatine Kinase MB 12.7 ng/ml (0.5-3.6) Creatine Kinase MB Ratio 6.9 (0-3.0) Pro-B-Type Natriuretic Peptide 752 pg/ml (0-900) Total Protein 6.9 gm/dl (6.4-8.2) Albumin 3.4 gm/dl (3.4-5.0) Influenza Type A (RT-PCR) Neg for Influ A (NEG) Influenza Type B (RT-PCR) Neg for Influ B (NEG) Laboratory results per my review. Medications Administered Medications (Trade) Dose Ordered Sig/Deborah Route Start Time Stop Time Status Last Admin Dose Admin Aspirin (Aspirin Chew) 324 mg NOW STAT PO 01/24/18 06:46 01/24/18 06:49 DC 01/24/18 07:04 324 MG Lorazepam (Ativan Tab) 0.5 mg NOW STAT SL 01/24/18 06:50 01/24/18 06:51 DC 01/24/18 07:04 0.5 MG Magnesium Sulfate (Magnesium Sulfate) 2 gm NOW STAT IV 01/24/18 07:23 01/24/18 07:24 DC 01/24/18 07:37 2 GM Heparin Sodium/ Dextrose (Heparin 25,000 Unit/500ml D5W) 25,000 unit STK-MED ONCE .ROUTE 01/24/18 07:49 01/24/18 07:50 DC 01/24/18 07:55 25,000 UNIT Heparin Sodium (Porcine) (Heparin Sq 5000 Unit/0.5ml) 5,000 unit STK-MED ONCE .ROUTE 01/24/18 07:49 01/24/18 07:50 DC 01/24/18 07:53 5,000 UNIT Acetaminophen (Tylenol Tab) 650 mg Q4H PRN PO 01/24/18 08:15 02/23/18 08:14 01/25/18 08:22 650 MG ECG Per My Interpretation Indication: chest pain Rate (beats per minute): 57 Rhythm: sinus bradycardia Findings: no acute ischemic change, no ectopy Change: Patient's electrocardiogram interpreted by me. ED Course 0645: Past medical records reviewed. The patient was evaluated in room B7. A complete history and physical examination was performed. 0646: Aspirin 324 mg PO. 0650: Lorazepam 0.5 mg SL. 0722: Heparin Sodium/Dextrose 1 ea NA. 0723: Magnesium Sulfate 2 gm IV. 0735: I discussed the patients case with Daylin Martins. The patient will be further evaluated. 0737: I reevaluated the patient. She is resting comfortably. I discussed my recommendation she remain in the hospital for further evaluation and management and she verbalized complete understanding and agreement. Medical Decision DDx: Acute coronary syndrome, pulmonary embolus, aortic dissection, musculoskeletal pain, pneumonia, pleural effusion, pneumothorax This patient was evaluated and appeared to be in no significant distress. IV access was obtained and laboratory work was drawn. The patient was placed on the slag wheeler sinus rhythm. EKG reveals no evidence of acute ischemia. Patient was given 324 mg of aspirin to chew. Chest x-ray was performed and is clear. Laboratory work was performed and reveals an elevated troponin. The patient was informed of the findings. IV heparin was ordered. Patient is also noted to be hypomagnesemic. She was given 2 g of IV magnesium. The patient will be evaluated by the hospitalist service for further management. Medication Reconcilliation Current Medication List: was personally reviewed by me Blood Pressure Screening Patient's blood pressure: Low blood pressure Consults Time Called: 723 Consulting Physician: Daylin Martins Returned Call: 07 I discussed the patients case with Daylin Martins. The patient will be further evaluated. Impression Primary Impression: NSTEMI (non-ST elevated myocardial infarction) Additional Impression: Hypomagnesemia Scribe Attestation The scribe's documentation has been prepared under my direction and personally reviewed by me in its entirety. I confirm that the note above accurately reflects all work, treatment, procedures, and medical decision making performed by me. Departure Information Dispostion Being Evaluated By Hospitalist Referrals Kane Soriano M.D. (PCP) Patient Instructions My [facility] Problem Qualifiers
[2018-01-24 07:14] LABS: ALBUMIN 3.4 gm/dl (3.4-5.0); BASO % 0.4 %; BASO ABS # 0.04 K/uL (0-0.2); CALCIUM 8.9 mg/dl (8.5-10.1); CREATININE 1.02 mg/dl (0.60-1.20); EOS % 1.6 %; EOS ABS # 0.15 K/uL (0-0.5); HEMATOCRIT 38.7 % (37-47); HEMOGLOBIN 13.3 g/dL (12.0-16.0); IG# 0.02 K/uL (0.00-0.02); LYMPH ABS # 2.74 K/uL (1.2-3.4); MEAN CELL VOLUME 88.4 fL (80-100); MEAN CORPUSCULAR HEMOGLOBIN 30.4 pg (25-34); MEAN CORPUSCULAR HGB CONC 34.4 g/dl (32-36); MEAN PLATELET VOLUME 10.9 fL (7.4-10.4); MONO % 9.4 %; MONO ABS # 0.86 K/uL (0.11-0.59); NEUT % 58.4 %; NEUT ABS # 5.31 K/uL (1.4-6.5); PLATELET COUNT 235 K/uL (130-400); POTASSIUM 3.6 mmol/L (3.5-5.1); RED CELL DISTRIBUTION WIDTH CV 13.3 % (11.5-14.5); RED CELL DISTRIBUTION WIDTH SD 43.5 fL (36.4-46.3); WHITE BLOOD COUNT 9.12 K/uL (4.8-10.8)
[2018-01-24 07:21] LABS: CKMB 12.7 ng/ml (0.5-3.6); TOTAL PROTEIN 6.9 gm/dl (6.4-8.2)
--- NOTE | 2018-01-24 07:21 | DIAGNOSTIC IMAGING REPORT ---
SINGLE VIEW CHEST CLINICAL HISTORY: Dyspnea. Atypical chest pain. FINDINGS: An AP, portable, upright chest radiograph is compared to study dated 04/20/2014. The examination is degraded by portable technique and patient rotation. The cardiomediastinal silhouette is unremarkable. There is atherosclerotic calcification of the thoracic aorta. The lungs and pleural spaces are clear. No pneumothorax is seen. The skeletal structures appear osteopenic. The bony thorax is grossly intact. Surgical clips are noted in the right axilla. The central venous infusion port has been removed from 2013. IMPRESSION: No acute cardiopulmonary abnormality. Electronically signed by: Azam Rodriguez M.D. 01/24/2018 7:19 AM Dictated Date/Time: 01/24/2018 7:19 AM
[2018-01-24] MEDS ORDERED: MAGNESIUM SULFATE 1GM / D5W 1 GM BAG IV STA (07:23)
[2018-01-24] MEDS ORDERED: ACET-1256 PO (07:26)
[2018-01-24] MEDS ORDERED: CLOP1TAB15 PO (07:26)
[2018-01-24] MEDS ORDERED: HEPARIN SOD 5000 UNIT/0.5 ML CARP ONE (07:49)
[2018-01-24] MEDS ORDERED: HEPARIN 25000 UNIT/500 ML D5W ONE (07:49)
[2018-01-24 08:07] LABS: INFLUENZA A PCR Neg for Influ A (NEG); INFLUENZA B PCR Neg for Influ B (NEG)
[2018-01-24] MEDS ORDERED: ONDANSETRON INJ 2 MG/ML 2 ML VIAL IV PRN (08:15)
[2018-01-24] MEDS ORDERED: NITROGLYCERIN 0.4 MG SL PER TAB CHARGE SL PRN (08:15)
[2018-01-24] MEDS ORDERED: PHARMACY GLYCEMIC MGMT CONSULT PRN (08:27)
[2018-01-24] MEDS ORDERED: GLUCOSE 40% GEL 15 GM TUBE PO PRN (08:30)
[2018-01-24] MEDS ORDERED: GLUCAGON FOR INJ 1 MG VIAL SQ PRN (08:30)
[2018-01-24] MEDS ORDERED: MoRPHine SULFATE 2 MG/ML CARP IV PRN (08:30)
[2018-01-24] MEDS ORDERED: DEXTROSE 50% 50 ML SYR IV PRN (08:30)
[2018-01-24] MEDS ORDERED: GLUCOSE 10 TABS/TUBE PO PRN (08:30)
[2018-01-24 08:34] LABS: PTT PATIENT 23.9 SECONDS (21.0-31.0)
[2018-01-24 08:45] VITALS: O2SAT 94; BMI 36.8
[2018-01-24] MEDS ORDERED: HEPARIN IV LOW DOSE NO BOLUS SCH (08:45)
[2018-01-24 08:57] VITALS: O2SAT 94
--- NOTE | 2018-01-24 08:59 | History and Physical ---
History & Physical Date & Time of Service: Jan 24, 2018 at 08:35 Chief Complaint: Chest Pressure/Shortness Of Breath Primary Care Physician: Kane Soriano M.D. History of Present Illness Source: patient, family Patient is a 67yr female with PMH CAD S/P stents and restenosis of RCA S/P NAILA in Jun 2017, DM II, Breast Cancer S/P surgery, chemo and radiation therapy, HTN , HLP, Anxiety disorder, GERD, fatty liver and other problems presents with history of SOB, chest pain, presyncope. Patient states she has been feeling tired since last 2 days and has SOB in minimal exertion. Reports noticing left sided chest heaviness yesterday at around 8pm and has progressively worsened since then. She experienced a near syncopal event this morning which is associated with nausea, diaphoresis and chest pain. Chest pain is 9/10 intensity , left sided, heaviness like, increases with deep breathing, radiates to back and neck which improved with NTG. Currently states chest pain is about 5/10. Also reports occipital headache and has been taking Tylenol since 2 days. She states having chemical stress test on which was normal. Denies any history of pedal edema, cough, fever, chills, fall, head trauma, LOC, vomiting, abdominal pain, diarrhea, dysuria, recent change in medications. Past Medical/Surgical History PMH: CAD S/P stents and restenosis of RCA S/P NAILA in Jun 2017, DM II, Breast Cancer S/P surgery, chemo and radiation therapy, HTN, HLP, Anxiety disorder, GERD, fatty liver PSH:Breast Surgery, Hysterectomy Family History:Mother: Breast and Colon Cancer Father: Hodgkins Family History Reviewed as above Social History Smoking Status: Former Smoker Alcohol Use: none Drug Use: none Marital Status: Occupational Status: retired Immunizations History of Tetanus Vaccine?: Yes Tetanus Immunization Date: March 29, 2015 Allergies Coded Allergies: Cefuroxime (Verified Allergy, Unknown, HIVES, 04/20/14) Home Medications Scheduled Acetaminophen (Tylenol), 500 MG PO UD Aspirin (Aspirin 81), 81 MG PO HS Atorvastatin (Lipitor), 1 TAB PO HS Citalopram (Citalopram Hydrobromide), 1 TAB PO HS Clopidogrel (Plavix), 75 MG PO 0900 Insulin Glargine (Lantus), 18 UNITS SC PM Isosorbide Mononitrate Ext Rel (Imdur Ext Rel), 1 TAB PO QAM Metformin Hcl (Glucophage), 1,000 MG PO BIDM Metoprolol Succ (Toprol Xl) (Toprol-Xl), 25 MG PO HS Pantoprazole (Protonix), 40 MG PO QAM Scheduled PRN Nitroglycerin (Nitrostat), 1 TAB SL UD PRN for Chest Pain Review of Systems See HPI for pertinent positives & negatives. A total of 10 systems reviewed and were otherwise negative. Physical Exam Vital Signs Date Time Temp Pulse Resp B/P (MAP) Pulse Ox O2 Delivery O2 Flow Rate FiO2 01/24/18 07:40 64 18 128/68 99 01/24/18 07:24 57 01/24/18 06:45 100 Room Air 01/24/18 06:40 36.7 55 24 110/57 100 Room Air General Appearance: WD/WN, no apparent distress, + pertinent finding (Anxious) Head: normocephalic, atraumatic Eyes: normal inspection, PERRL, EOMI ENT: normal ENT inspection, hearing grossly normal Neck: supple, trachea midline Respiratory/Chest: chest non-tender, lungs clear, normal breath sounds, no respiratory distress, no accessory muscle use Cardiovascular: regular rate, rhythm, no edema, no murmur, + pertinent finding (Left sided tenderness to palpate) Abdomen/GI: normal bowel sounds, non tender, soft Back: normal inspection Extremities/Musculoskelatal: normal inspection, no pedal edema Neurologic/Psych: 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, no motor/sensory deficits, alert, oriented x 3, + pertinent finding (anxious) Skin: normal color, warm/dry Diagnostics Laboratory Results Results Past 24 Hours Test 01/24/18 06:40 01/24/18 07:10 Range/Units White Blood Count 9.12 4.8-10.8 K/uL Red Blood Count 4.38 4.2-5.4 M/uL Hemoglobin 13.3 12.0-16.0 g/dL Hematocrit 38.7 37-47 % Mean Corpuscular Volume 88.4 80-100 fL Mean Corpuscular Hemoglobin 30.4 25-34 pg Mean Corpuscular Hemoglobin Concent 34.4 32-36 g/dl Platelet Count 235 130-400 K/uL Mean Platelet Volume 10.9 7.4-10.4 fL Neutrophils (%) (Auto) 58.4 % Lymphocytes (%) (Auto) 30.0 % Monocytes (%) (Auto) 9.4 % Eosinophils (%) (Auto) 1.6 % Basophils (%) (Auto) 0.4 % Neutrophils # (Auto) 5.31 1.4-6.5 K/uL Lymphocytes # (Auto) 2.74 1.2-3.4 K/uL Monocytes # (Auto) 0.86 0.11-0.59 K/uL Eosinophils # (Auto) 0.15 0-0.5 K/uL Basophils # (Auto) 0.04 0-0.2 K/uL RDW Standard Deviation 43.5 36.4-46.3 fL RDW Coefficient of Variation 13.3 11.5-14.5 % Immature Granulocyte % (Auto) 0.2 % Immature Granulocyte # (Auto) 0.02 0.00-0.02 K/uL Prothrombin Time 10.7 9.0-12.0 SECONDS Prothromb Time International Ratio 1.0 0.9-1.1 Activated Partial Thromboplast Time 23.9 21.0-31.0 SECONDS Partial Thromboplastin Ratio 0.9 Sodium Level 137 136-145 mmol/L Potassium Level 3.6 3.5-5.1 mmol/L Chloride Level 103 98-107 mmol/L Carbon Dioxide Level 23 21-32 mmol/L Anion Gap 11.0 3-11 mmol/L Blood Urea Nitrogen 15 7-18 mg/dl Creatinine 1.02 0.60-1.20 mg/dl Est Creatinine Clear Calc Drug Dose 51.1 ml/min Estimated GFR () 66.4 Estimated GFR (Non- 57.3 BUN/Creatinine Ratio 14.9 10-20 Random Glucose 205 70-99 mg/dl Calcium Level 8.9 8.5-10.1 mg/dl Magnesium Level 1.2 1.8-2.4 mg/dl Total Bilirubin 0.3 0.2-1 mg/dl Direct Bilirubin 0.1 0-0.2 mg/dl Aspartate Amino Transf (AST/SGOT) 35 15-37 U/L Alanine Aminotransferase (ALT/SGPT) 42 12-78 U/L Alkaline Phosphatase 101 45-117 U/L Total Creatine Kinase 185 26-192 U/L Creatine Kinase MB 12.7 0.5-3.6 ng/ml Creatine Kinase MB Ratio 6.9 0-3.0 Troponin I 0.832 0-0.045 ng/ml Pro-B-Type Natriuretic Peptide 752 0-900 pg/ml Total Protein 6.9 6.4-8.2 gm/dl Albumin 3.4 3.4-5.0 gm/dl Influenza Type A (RT-PCR) Neg for Influ A NEG Influenza Type B (RT-PCR) Neg for Influ B NEG Diagnostic Radiology CXR: No acute cardiopulmonary abnormality EKG EKG: Sinus Bradycardia, Non specific ST-T wave changes Impression Assessment and Plan Possible NSTEMI Chest Pain: R/O ACS,Stent Restenosis Risk factors: H/O CAD, HTN, HLP, DM II, Obesity H/O CAD S/P stents and restenosis of RCA S/P NAILA in Jun 2017 Initial troponin:0.8 EKG shows: Nonspecific ST-T wave changes, Sinus Gadiel CXR: Unremarkable Check ECHO Trend serial cardiac enzymes, repeat EKG, fasting lipid panel in AM Continue Aspirin, statins, BB NTG PRN Started on IV heparin Oxygen PRN NPO for now Cardiology consulted Hypomagnesemia: Replace and monitor DM Type II: Will hold oral diabetic meds Last A1c:8.9 on 10/12/17 continue ISS, basal Insulin, Accu checks Pharmacy Glycemic control consult H/O Breast Cancer S/P surgery S/P chemo and radiation therapy Follows with as outpatient HTN: Stable Continue home meds HLP: Continue Statins Anxiety disorder: continue Celexa GERD continue PPI DVT Px: On IV Heparin Code Status: Full Code Disposition: Admit in Tele Resuscitation Status VTE Prophylaxis Will order VTE Prophylaxis: Yes
[2018-01-24 09:15] VITALS: BP 135/63; PULSE 67; TEMP 36.7; O2SAT 97
[2018-01-24] MEDS: SODIUM CHLORIDE 0.9% 1000ML 1,000 ML IV SCH ×3 (09:59→23:55)
[2018-01-24] MEDS: INSULIN ASPART 100 UNITS/ML 3 ML PEN SC SCH ×4 (10:00→21:06)
[2018-01-24] MEDS: CLOPIDOGREL BISULFATE 75 MG TAB PO SCH (11:06)
[2018-01-24] MEDS: ISOSORBIDE MONONITRATE 30 MG TABCR PO SCH (11:06)
--- NOTE | 2018-01-24 11:08 | Pharmacy Progress Note ---
Glycemic Control Intl Consult Date of Service Jan 24, 2018. Scope Glycemic Pharmacist consulted by Dr Grace on 01/24/18 for glycemic control and to write orders per [facility] inpatient glycemic control protocol Objective Weight (Kilograms): 82.600 Accuchecks BSG (last 24hrs): Test 01/24/18 06:40 Random Glucose 205 mg/dl (70-99) Laboratory Data (last 24hrs) Test 01/24/18 06:40 Anion Gap 11.0 mmol/L BUN/Creatinine Ratio 14.9 Blood Urea Nitrogen 15 mg/dl Creatinine 1.02 mg/dl Potassium Level 3.6 mmol/L Sodium Level 137 mmol/L White Blood Count 9.12 K/uL Red Blood Count 4.38 M/uL Hemoglobin 13.3 g/dL Hematocrit 38.7 % Mean Corpuscular Volume 88.4 fL Mean Corpuscular Hemoglobin 30.4 pg Mean Corpuscular Hemoglobin Concent 34.4 g/dl Platelet Count 235 K/uL Mean Platelet Volume 10.9 fL Neutrophils (%) (Auto) 58.4 % Lymphocytes (%) (Auto) 30.0 % Monocytes (%) (Auto) 9.4 % Eosinophils (%) (Auto) 1.6 % Basophils (%) (Auto) 0.4 % Neutrophils # (Auto) 5.31 K/uL Lymphocytes # (Auto) 2.74 K/uL Monocytes # (Auto) 0.86 K/uL Eosinophils # (Auto) 0.15 K/uL Basophils # (Auto) 0.04 K/uL HbA1c 9.3% on 06/26/17 8.9% on 10/12/17 A1c pending for tomorrow with AM labs Recent Pertinent Medications Outpatient Anti-diabetic Regimen: * Lantus 18 units SQ PM * Metformin 1,000mg PO BIDM Assessment & Plan ASSESSMENT: * 67yo T2DM female with unknown degree of outpatient control. Most recent A1c is outdated, new A1c pending for tomorrow. Last two A1cs were elevated above goal of A1c <7-8% based on age/co-morbidities. * Pt admitted for NSTEMI. Random GLU elevated on labs most likely d/t baseline poor control, stress, and that last dose of Lantus was 2 days ago. * Pt NPO - recommended to give 50-80% of basal insulin while NPO to prevent rebound hyperglycemia * Pt is on metformin as an outpatient - will hold this for admission and use a weight based NovoLog bolus insulin scale per CF/CR PLAN FOR INPATIENT GLYCEMIC CONTROL: * Holding outpatient oral diabetes medications * Basal insulin * Reduce outpatient dose, give ~70% of outpatient dose for NPO; Lantus 12 units SQ daily * Bolus insulin * Dosing per weight and moderate stress * NovoLog per scale ACHS or Q6hrs while NPO * Goal Range: Low 120 mg/dL - High 150 mg/dL * Correction Factor: 30 mg/dL/unit * Nutritional / Prandial insulin per carb ratio of 1 unit per 9 grams CHO consumed * A1c with AM labs 01/25/18 * Please note that the plan above was derived based on current level of insulin resistance and hospital stress. These recommendations are appropriate for inpatient admission only. Plan of care upon discharge will need to be reassessed to avoid potential outpatient hypo/hyperglycemia. Thank you.
--- NOTE | 2018-01-24 11:10 | Cardiology Consultation ---
Cardiology Consultation Date of Service Jan 24, 2018. Cardiology Consultation Indication: Consultation for chest pain History: This is a 67-year-old female with a prior history of coronary stents in the right coronary artery. She has a history of in-stent restenosis and then in June 2017 received drug-eluting stents within the right coronary artery. She usually follows with Dr. Gordon who last saw her at the end of December. She had complaints of dyspnea on exertion and lower extremity weakness. Approximately a week ago, she underwent a pharmacologic nuclear stress test that was negative. The patient states that early this morning she got up and felt ill. She was flushed and diaphoretic. She had chest pain that radiated from the front to her back. She took sublingual nitroglycerin with minimal relief and presented to the emergency department where she has been admitted. Her EKG shows no acute changes. The first set of cardiac troponins are borderline elevated. She has no current chest pain or shortness of breath. Allergies: Cefuroxime Reported Home Medications Medications Dose Route/Sig Max Daily Dose Days Date Category Tylenol (Acetaminophen) 500 Mg Tab 500 Mg PO UD 01/24/18 Reported Plavix (Clopidogrel Bisulfate) 75 Mg Tab 75 Mg PO 0900 01/24/18 Reported Toprol-Xl (Metoprolol Succinate) 25 Mg Tabcr 25 Mg PO HS 06/25/17 Reported Nitrostat (Nitroglycerin) 0.4 Mg Tab 1 Tab SL UD PRN 06/25/17 Reported Protonix (Pantoprazole Sodium) 40 Mg Tab 40 Mg PO QAM 06/25/17 Reported Imdur Ext Rel (Isosorbide Mononitrate) 30 Mg Ertab 1 Tab PO QAM 06/25/17 Reported Lipitor (Atorvastatin Calcium) 80 Mg Tab 1 Tab PO HS 06/25/17 Reported Lantus (Insulin Glargine) Vial 18 Units SC PM 07/09/16 Reported Citalopram Hydrobromide (Citalopram) 40 Mg Tab 1 Tab PO HS 07/09/16 Reported Aspirin 81 (Aspirin) 81 Mg Tab 81 Mg PO HS 04/24/14 Reported Glucophage (Metformin Hcl) 1,000 Mg Tab 1,000 Mg PO BIDM 04/20/14 Reported Past medical history: The patient is a type II diabetic with history of hypertension and dyslipidemia. She is also BRCA gene positive and has a history of breast cancer which has been treated with surgery, radiation and chemotherapy. She is status post breast implants Family medical history: Is significant for cancer as well as diabetes. Social history: Patient is a nonsmoker. She stopped in 1989. General: The patient denies weight change, night sweats, fever, chills. Head: The patient denies headache and prior head trauma. Cardiovascular: The patient denies chest pain or chest discomfort, dyspnea on exertion, palpitations, PND, orthopnea, edema, spontaneous shortness of breath, syncope and near syncope. Pulmonary: The patient denies cough, wheeze, pleurisy, hemoptysis, sputum, and excessive snoring. Gastrointestinal: The patient denies nausea, vomiting, diarrhea, constipation, bloating, hematemesis, hematochezia, and abdominal pain. Skin: The patient denies diaphoresis and rash. Musculoskeletal: The patient denies joint pain, joint swelling, myalgia, back pain, neck pain and prior injuries. Neurological: The patient denies prior stroke and seizures Vital Signs Past 12 Hours Date Time Temp Pulse Resp B/P (MAP) Pulse Ox O2 Delivery O2 Flow Rate FiO2 01/24/18 09:15 36.7 67 19 135/63 (87) 97 Room Air 01/24/18 08:57 72 16 109/63 94 Room Air 01/24/18 08:45 94 Room Air 01/24/18 07:40 64 18 128/68 99 01/24/18 07:24 57 01/24/18 06:45 100 Room Air 01/24/18 06:40 36.7 55 24 110/57 100 Room Air General Appearance: Alert and Oriented x3. NAD. Head: Normocephalic Atraumatic. Eyes: PERRLA, EOMI, conjunctiva and sclera clear Neck: Supple. No carotid bruits noted. No JVD. No HJD. Respiratory: Breath sounds clear to auscultation bilaterally. No w/r/r. Cardiovascular: Reg rate and rhythm. S1 and S2 noted. No murmurs, rubs, gallops. PMI non displace. Abdomen: Normal bowel sounds, soft nontender. no abdominal bruits. Extremities: No edema, no clubbing or cyanosis. distal pulses 2/4 bilaterally. Neuro: No focal deficits. Psychiatric: Normal affect. Last 24 Hours Test 01/24/18 06:40 01/24/18 07:10 White Blood Count 9.12 K/uL Red Blood Count 4.38 M/uL Hemoglobin 13.3 g/dL Hematocrit 38.7 % Mean Corpuscular Volume 88.4 fL Mean Corpuscular Hemoglobin 30.4 pg Mean Corpuscular Hemoglobin Concent 34.4 g/dl Platelet Count 235 K/uL Mean Platelet Volume 10.9 fL Neutrophils (%) (Auto) 58.4 % Lymphocytes (%) (Auto) 30.0 % Monocytes (%) (Auto) 9.4 % Eosinophils (%) (Auto) 1.6 % Basophils (%) (Auto) 0.4 % Neutrophils # (Auto) 5.31 K/uL Lymphocytes # (Auto) 2.74 K/uL Monocytes # (Auto) 0.86 K/uL Eosinophils # (Auto) 0.15 K/uL Basophils # (Auto) 0.04 K/uL RDW Standard Deviation 43.5 fL RDW Coefficient of Variation 13.3 % Immature Granulocyte % (Auto) 0.2 % Immature Granulocyte # (Auto) 0.02 K/uL Prothrombin Time 10.7 SECONDS Prothromb Time International Ratio 1.0 Activated Partial Thromboplast Time 23.9 SECONDS Partial Thromboplastin Ratio 0.9 Sodium Level 137 mmol/L Potassium Level 3.6 mmol/L Chloride Level 103 mmol/L Carbon Dioxide Level 23 mmol/L Anion Gap 11.0 mmol/L Blood Urea Nitrogen 15 mg/dl Creatinine 1.02 mg/dl Est Creatinine Clear Calc Drug Dose 51.1 ml/min Estimated GFR () 66.4 Estimated GFR (Non- 57.3 BUN/Creatinine Ratio 14.9 Random Glucose 205 mg/dl Calcium Level 8.9 mg/dl Magnesium Level 1.2 mg/dl Total Bilirubin 0.3 mg/dl Direct Bilirubin 0.1 mg/dl Aspartate Amino Transf (AST/SGOT) 35 U/L Alanine Aminotransferase (ALT/SGPT) 42 U/L Alkaline Phosphatase 101 U/L Total Creatine Kinase 185 U/L Creatine Kinase MB 12.7 ng/ml Creatine Kinase MB Ratio 6.9 Troponin I 0.832 ng/ml Pro-B-Type Natriuretic Peptide 752 pg/ml Total Protein 6.9 gm/dl Albumin 3.4 gm/dl Influenza Type A (RT-PCR) Neg for Influ A Influenza Type B (RT-PCR) Neg for Influ B Impression/recommendations: This is a 67-year-old female who has been experiencing atypical chest pain and symptoms. She has a history of coronary artery disease with previous coronary stents right coronary artery as well as in -stent restenosis requiring a drug-eluting stent in the right coronary artery in June 2017. She is very anxious about her heart disease. Recently she described symptoms of dyspnea with activity and not feeling well with leg weakness. She underwent a pharmacologic stress test as an outpatient that was negative. She is now admitted with borderline elevation in her cardiac troponin. I believe the best way to evaluate her is to repeat a cardiac catheterization. She understands the risk benefit and intent of this procedure along with the potential for repeat coronary intervention. We will plan to proceed tomorrow.
[2018-01-24] MEDS ORDERED: DC ALL PREVIOUSLY ORDERED DIABETES MEDS ONE (11:15)
[2018-01-24] MEDS ORDERED: NURSING VERBAL MED ORDER ONE (12:00)
[2018-01-24] MEDS: INSULIN GLARGINE SOLOSTAR 100 UNITS/ML 3 ML PEN SC SCH (12:12)
[2018-01-24 12:22] VITALS: BP 106/58; PULSE 62; TEMP 36.9; O2SAT 96
[2018-01-24] MEDS ORDERED: PERFLUTREN LIPID MICROSPHERE (DEFINITY) IV ONE (13:56)
[2018-01-24 15:01] LABS: PTT PATIENT 35.1 SECONDS (21.0-31.0)
[2018-01-24 15:47] VITALS: BP 105/62; PULSE 62; TEMP 36.7; O2SAT 94
[2018-01-24] MEDS ORDERED: HEPARIN IV BOLUS 4,000 UNIT in SYRINGE 0 ML IV SCH (16:00)
--- NOTE | 2018-01-24 16:55 | ECHOCARDIOGRAM REPORT ---
*NOTICE TO RECEIVING [employer] This information is strictly Confidential and protected under [place] law. [place] law prohibits you from making any further disclosure of this information unless further disclosure is expressly permitted by the written consent of the person to whom it pertains or is authorized by law. A general authorization for the release of medical or other information is not sufficient for this purpose. Hospital accepts no responsibility if the information is made available to any other person, INCLUDING THE PATIENT. Interpretation Summary * Name: BEVERLEY WELLER Study Date: 01/24/2018 01:30 PM BP: 109/63 mmHg * Patient Location: C.2E\S\E205\S\1 HR: 72 * : 1950 (M/d/yyyy) Gender: Female Height: 59 in * Age: 67 yrs Ethnicity: [place] Weight: 182 lb * Ordering Physician: Gene Grace * Referring Physician: Self, Referred * Performed By: Laurie Alvarez RDCS * * Reason For Study: Chest Pain * BSA: 1.8 m2 * -- Conclusions -- * The study is technically limited due to the patient history of breast implants. * The left ventricle is normal in size. * Left ventricular systolic function is normal. * Ejection Fraction = 55-60%. * The right ventricular systolic function is normal. * The left atrial size is normal. * Right atrial size is normal. * No significant valvular pathology. Procedure Details * A complete two-dimensional transthoracic echocardiogram was performed (2D, M-mode, Doppler and color flow Doppler). * The study was technically difficult. * The study was technically difficult, but visualization was adequate with the administration of Definity ultrasound contrast. * Technical limitations due to breast implants. * A contrast injection of Definity was performed to improve assessment of LV function. * Contrast was injected into an intravenous site in the left arm. * One vial of Definity ultrasound contrast was diluted in normal saline to a total volume of 10 ml. A total of '2' ml of solution was administered during imaging. * Lot # [id number] of Definity utilized for procedure. * Expiration date . * The attending nurse who injected the contrast agent was Yelena Shin RN. Left Ventricle * The left ventricle is normal in size. * There is normal left ventricular wall thickness. * Ejection Fraction = 55-60%. * Left ventricular systolic function is normal. Right Ventricle * The right ventricle is normal size. * The right ventricular systolic function is normal. Atria * The left atrial size is normal. * Right atrial size is normal. * No ASD detected; PFO is not assessed. Mitral Valve * The mitral valve is grossly normal. * Significant mitral regurgitation is absent. Tricuspid Valve * The tricuspid valve is not well visualized. * Significant tricuspid regurgitation is absent. Aortic Valve * The aortic valve is tricuspid. The leaflet thickness if normal. There is no aortic stenosis, and no significant insufficiency. * Aortic stenosis is absent. * There is no significant aortic regurgitation. Pulmonic Valve * The pulmonic valve is not well visualized. Great Vessels * The aortic root and proximal ascending aorta are normal sized. Pericardium/Pleural * There is no pericardial effusion. MMode 2D Measurements and Calculations IVSd 1.1 cm IVSs 1.2 cm LVIDd 3.8 cm LVIDs 2.7 cm LVPWd 0.97 cm LVPWs 1.3 cm IVS/LVPW 1.1 FS 30.0 % EDV(Teich) 62.7 ml ESV(Teich) 26.3 ml EF(Teich) 58.0 % EDV(cubed) 55.7 ml ESV(cubed) 19.1 ml EF(cubed) 65.7 % % IVS thick 15.5 % % LVPW thick 37.3 % LV mass(C)d 122.3 grams LV mass(C)dI 69.0 grams/m\S\2 LV mass(C)s 105.1 grams LV mass(C)sI 59.3 grams/m\S\2 SV(Teich) 36.4 ml SI(Teich) 20.5 ml/m\S\2 SV(cubed) 36.6 ml SI(cubed) 20.7 ml/m\S\2 Ao root diam 2.0 cm Ao root area 3.0 cm\S\2 ACS 1.5 cm LA dimension 3.9 cm LA/Ao 2.0 LVAd ap4 23.2 cm\S\2 LVLd ap4 7.3 cm EDV(MOD-sp4) 60.2 ml EDV(sp4-el) 62.1 ml LVAs ap4 13.3 cm\S\2 LVLs ap4 6.0 cm ESV(MOD-sp4) 24.8 ml ESV(sp4-el) 24.7 ml EF(MOD-sp4) 58.9 % EF(sp4-el) 60.3 % LVAd ap2 18.5 cm\S\2 LVLd ap2 7.3 cm EDV(MOD-sp2) 40.6 ml EDV(sp2-el) 39.6 ml LVAs ap2 11.2 cm\S\2 LVLs ap2 7.0 cm ESV(MOD-sp2) 16.6 ml ESV(sp2-el) 15.3 ml EF(MOD-sp2) 59.3 % EF(sp2-el) 61.2 % LVLd %diff -0.05 % EDV(MOD-bp) 49.2 ml LVLs %diff 13.4 % ESV(MOD-bp) 21.2 ml EF(MOD-bp) 56.8 % SV(MOD-sp4) 35.4 ml SI(MOD-sp4) 20.0 ml/m\S\2 SV(MOD-sp2) 24.1 ml SI(MOD-sp2) 13.6 ml/m\S\2 SV(MOD-bp) 27.9 ml SI(MOD-bp) 15.8 ml/m\S\2 SV(sp4-el) 37.5 ml SI(sp4-el) 21.1 ml/m\S\2 SV(sp2-el) 24.2 ml SI(sp2-el) 13.7 ml/m\S\2 Doppler Measurements and Calculations MV E max jonathan 91.1 cm/sec MV A max jonathan 100.8 cm/sec MV E/A 0.90 MV dec time 0.28 sec Ao V2 max 123.4 cm/sec Ao max PG 6.1 mmHg Ao max PG (full) 3.2 mmHg LV V1 max PG 2.9 mmHg LV V1 max 84.7 cm/sec PA V2 max 107.8 cm/sec PA max PG 4.7 mmHg TR max jonathan 226.0 cm/sec
[2018-01-24] MEDS: HEPARIN 25,000 UNIT/500ML D5W 500 ML IV PRN ×2 (19:01→23:53)
[2018-01-24 20:21] VITALS: BP 124/60; PULSE 67; TEMP 36.7; O2SAT 96
[2018-01-24] MEDS: ASPIRIN 81 MG ECTAB PO SCH (21:04)
[2018-01-24] MEDS: ATORVASTATIN 40 MG TAB PO SCH (21:04)
[2018-01-24] MEDS: CITALOPRAM 40 MG TAB PO SCH (21:04)
[2018-01-24] MEDS: METOPROLOL SUCC 25MG EXT REL TAB PO SCH (21:05)
[2018-01-24 22:58] LABS: PTT PATIENT 44.7 SECONDS (21.0-31.0)
[2018-01-24] MEDS ORDERED: HEPARIN IV BOLUS 2,000 UNIT in SYRINGE 0 ML IV ONE (23:45)
[2018-01-25] VITALS (15 sets, daily range): BP systolic 105–143; BP diastolic 60–82; PULSE 55–75; TEMP 36.4–36.9; O2SAT 87–99; Ht 149.9 cm; Wt 83.0 kg
[2018-01-25] MEDS: INSULIN ASPART 100 UNITS/ML 3 ML PEN SC SCH ×6 (03:59→21:42)
[2018-01-25 06:23] LABS: HEMATOCRIT 37.8 % (37-47); HEMOGLOBIN 12.8 g/dL (12.0-16.0); MEAN CORPUSCULAR HEMOGLOBIN 30.5 pg (25-34); MEAN CORPUSCULAR HGB CONC 33.9 g/dl (32-36); MEAN PLATELET VOLUME 11.2 fL (7.4-10.4); PLATELET COUNT 213 K/uL (130-400); RED CELL DISTRIBUTION WIDTH CV 13.7 % (11.5-14.5); RED CELL DISTRIBUTION WIDTH SD 44.8 fL (36.4-46.3); WHITE BLOOD COUNT 7.27 K/uL (4.8-10.8)
[2018-01-25 06:33] LABS: PTT PATIENT 44.6 SECONDS (21.0-31.0)
[2018-01-25 06:54] LABS: CALCIUM 8.3 mg/dl (8.5-10.1); CREATININE 0.73 mg/dl (0.60-1.20); POTASSIUM 3.8 mmol/L (3.5-5.1)
[2018-01-25 07:14] LABS: HEMOGLOBIN A1C 9.8 % (4.5-5.6)
[2018-01-25] MEDS ORDERED: HEPARIN IV BOLUS 2,000 UNIT in SYRINGE 0 ML IV ONE (07:15)
[2018-01-25] MEDS: HEPARIN 25,000 UNIT/500ML D5W 500 ML IV PRN (07:16)
[2018-01-25] MEDS ORDERED: MAGNESIUM SULFATE 1GM / D5W 1 GM in PREMIXED IN D5W 100 ML IV ONE (08:00)
[2018-01-25] MEDS: CLOPIDOGREL BISULFATE 75 MG TAB PO SCH (08:09)
[2018-01-25] MEDS: PANTOprazole SOD 40 MG TAB PO SCH (08:09)
[2018-01-25] MEDS: ISOSORBIDE MONONITRATE 30 MG TABCR PO SCH (08:10)
[2018-01-25] MEDS: INSULIN GLARGINE SOLOSTAR 100 UNITS/ML 3 ML PEN SC SCH (08:11)
[2018-01-25] MEDS: ACETAMINOPHEN 325 MG TAB PO PRN ×2 (08:22→18:40)
--- NOTE | 2018-01-25 08:27 | Progress Note ---
Internal Med Progress Note Date of Service: Jan 25, 2018. Provider Documentation: SUBJECTIVE: Seen and examined at bedside Doing well this morning Denies chest pain, SOB, dizziness, nausea Reports mild headache Planned for cardiac Cath today OBJECTIVE: Vital Signs-as noted below General Appearance: WD/WN, no apparent distress Head: normocephalic, atraumatic Eyes: normal inspection, PERRL, EOMI ENT: normal ENT inspection, hearing grossly normal Neck: supple, trachea midline Respiratory/Chest: normal breath sounds, no respiratory distress, no accessory muscle use Cardiovascular: regular rate, rhythm, no edema, no murmur Abdomen/GI: normal bowel sounds, non tender, soft Back: normal inspection Extremities/Musculoskelatal: normal inspection, no pedal edema Neurologic/Psych: folding machine setter II-XII nml as tested, no motor/sensory deficits, alert, oriented x 3 Skin: normal color, warm/dry Lab data as noted below. ASSESSMENT & PLAN: Possible NSTEMI Chest Pain: R/O ACS,Stent Restenosis Risk factors: H/O CAD, HTN, HLP, DM II, Obesity H/O CAD S/P stents and restenosis of RCA S/P NAILA in Jun 2017 Troponin:0.8>>2.5>>2.1 EKG shows: Nonspecific ST-T wave changes, Sinus Gadiel CXR: Unremarkable ECHO as below Continue Aspirin, Plavix, Imdur, statins, Metoprolol NTG PRN on IV heparin Oxygen PRN NPO for now as planned for cardiac cath today Appreciate Cardiology Input Hypomagnesemia: Replace and monitor DM Type II: Will hold oral diabetic meds A1C:9.8 continue ISS, basal Insulin, Accu checks Pharmacy Glycemic control consult H/O Breast Cancer S/P surgery S/P chemo and radiation therapy Follows with as outpatient HTN: Stable Continue home meds HLP: Continue Statins Anxiety disorder: continue Celexa GERD continue PPI DVT Px: On IV Heparin Code Status: Full Code Disposition: Monitor in Tele PROCEDURES: ECHO: * The study is technically limited due to the patient history of breast implants. * The left ventricle is normal in size. * Left ventricular systolic function is normal. * Ejection Fraction = 55-60%. * The right ventricular systolic function is normal. * The left atrial size is normal. * Right atrial size is normal. * No significant valvular pathology. Vital Signs: Date Time Temp Pulse Resp B/P (MAP) Pulse Ox O2 Delivery O2 Flow Rate FiO2 01/25/18 04:00 Room Air 01/25/18 03:35 36.5 75 18 125/69 (87) 94 Room Air 01/25/18 00:05 36.7 62 16 121/61 (81) 96 Room Air 01/25/18 00:00 Room Air 01/24/18 20:21 36.7 67 20 124/60 (81) 96 Room Air 01/24/18 20:00 Room Air 01/24/18 16:00 Room Air 01/24/18 15:47 36.7 62 22 105/62 (76) 94 Room Air 01/24/18 12:22 36.9 62 23 106/58 (74) 96 Room Air Free Flow/Blowby 01/24/18 12:00 Room Air 01/24/18 09:15 36.7 67 19 135/63 (87) 97 Room Air 01/24/18 08:57 72 16 109/63 94 Room Air 01/24/18 08:45 94 Room Air Lab Results: Results Past 24 Hours Test 01/24/18 11:36 01/24/18 14:41 01/24/18 15:11 01/24/18 16:38 Range/Units Bedside Glucose 120 137 70-90 mg/dl Activated Partial Thromboplast Time 35.1 21.0-31.0 SECONDS Partial Thromboplastin Ratio 1.4 Troponin I 2.540 0-0.045 ng/ml Urine Color YELLOW Urine Appearance CLEAR CLEAR Urine pH 5.5 4.5-7.5 Urine Specific [place] 1.012 1.000-1.030 Urine Protein NEG NEG Urine Glucose (UA) TRACE NEG Urine Ketones NEG NEG Urine Occult Blood NEG NEG Urine Nitrite NEG NEG Urine Bilirubin NEG NEG Urine Urobilinogen NEG NEG Urine Leukocyte Esterase NEG NEG Test 01/24/18 20:29 01/24/18 22:19 01/25/18 00:19 01/25/18 03:55 Range/Units Bedside Glucose 186 125 155 70-90 mg/dl Activated Partial Thromboplast Time 44.7 21.0-31.0 SECONDS Partial Thromboplastin Ratio 1.7 Troponin I 2.160 0-0.045 ng/ml Test 01/25/18 05:54 01/25/18 06:40 Range/Units White Blood Count 7.27 4.8-10.8 K/uL Red Blood Count 4.20 4.2-5.4 M/uL Hemoglobin 12.8 12.0-16.0 g/dL Hematocrit 37.8 37-47 % Mean Corpuscular Volume 90.0 80-100 fL Mean Corpuscular Hemoglobin 30.5 25-34 pg Mean Corpuscular Hemoglobin Concent 33.9 32-36 g/dl RDW Standard Deviation 44.8 36.4-46.3 fL RDW Coefficient of Variation 13.7 11.5-14.5 % Platelet Count 213 130-400 K/uL Mean Platelet Volume 11.2 7.4-10.4 fL Activated Partial Thromboplast Time 44.6 21.0-31.0 SECONDS Partial Thromboplastin Ratio 1.7 Sodium Level 140 136-145 mmol/L Potassium Level 3.8 3.5-5.1 mmol/L Chloride Level 109 98-107 mmol/L Carbon Dioxide Level 23 21-32 mmol/L Anion Gap 8.0 3-11 mmol/L Blood Urea Nitrogen 13 7-18 mg/dl Creatinine 0.73 0.60-1.20 mg/dl Est Creatinine Clear Calc Drug Dose 70.6 ml/min Estimated GFR () 99.5 Estimated GFR (Non- 85.8 BUN/Creatinine Ratio 18.4 10-20 Random Glucose 153 70-99 mg/dl Estimated Average Glucose 235 mg/dl Hemoglobin A1c 9.8 4.5-5.6 % Calcium Level 8.3 8.5-10.1 mg/dl Magnesium Level 1.6 1.8-2.4 mg/dl Triglycerides Level 174 0-150 mg/dl Cholesterol Level 130 0-200 mg/dl HDL Cholesterol 38 mg/dl LDL Cholesterol, Calculated 57 mg/dl VLDL Cholesterol, Calculated 35 mg/dl Cholesterol/HDL Ratio 3.4 Bedside Glucose 146 70-90 mg/dl
[2018-01-25] MEDS ORDERED: NiCARDipine HCL INJ 2.5 MG/ML 10 ML AMP ONE (10:35)
[2018-01-25] MEDS ORDERED: NITROGLYCERIN/D5W 100MCG/ML 20ML SYR ONE (10:35)
[2018-01-25] MEDS ORDERED: MIDAZOLAM HCL 1 MG/ML 2ML VIAL ONE (10:35)
[2018-01-25] MEDS ORDERED: HEPARIN SOD (PORCINE) 1000 UNIT/ML 10 ML VIAL ONE (10:35)
[2018-01-25] MEDS ORDERED: FENTANYL CITRATE INJ 50 MCG/1 ML 2 ML VIAL ONE ×2 (10:35→11:38)
[2018-01-25] MEDS ORDERED: SODIUM CHLORIDE 0.9% 1000ML 250 ML IV PRN (11:52)
--- NOTE | 2018-01-25 11:56 | Pre Sedation Assessment ---
Pre Sedation Assessment General Date of Sedation: Jan 25, 2018. Vital Signs Past 12 Hours Date Time Temp Pulse Resp B/P (MAP) Pulse Ox O2 Delivery O2 Flow Rate FiO2 01/25/18 11:45 5 18 142/82 (102) 96 Room Air 01/25/18 11:35 76 18 139/82 (101) 96 Room Air 01/25/18 08:00 Room Air 01/25/18 07:40 36.6 63 18 129/64 (85) 96 Room Air 01/25/18 04:00 Room Air 01/25/18 03:35 36.5 75 18 125/69 (87) 94 Room Air 01/25/18 00:05 36.7 62 16 121/61 (81) 96 Room Air 01/25/18 00:00 Room Air Review Cardiovascular: regular rate, rhythm Lungs: lungs clear Pre-Sedation Airway Assessment Smoking Status: Former Smoker Hx of Sleep Apnea: No Hx of difficult intubation: No Short Thick Neck: No Thyro-mental Distance: < or =3 Finger Breadths Oral Cavity: WNL Mallampati Classification: Class II ASA Classification: Class III NPO Status Date of Last Intake of Fluids: Jan 24, 2018 Time of Last Intake of Fluids: 11:59 Date of Last Intake of Solids: Jan 24, 2018 Time of Last Intake of Solids: 11:59 Procedure Planning Contraindications for Sedation: None Current Medications Reviewed: Yes Notes The planned sedation has been discussed with the patient. Informed Consent was obtained. I have identified the patient, determined the appropriateness of sedation and have assessed the patient immediately prior to the procedure. All medicine(s) and interventions are by my order.
--- NOTE | 2018-01-25 11:56 | Post Sedation Assessment ---
Post Sedation Assessment General Date of Sedation Jan 25, 2018. Vital Signs: Vital Signs Past 12 Hours Date Time Temp Pulse Resp B/P (MAP) Pulse Ox O2 Delivery O2 Flow Rate FiO2 01/25/18 11:45 5 18 142/82 (102) 96 Room Air 01/25/18 11:35 76 18 139/82 (101) 96 Room Air 01/25/18 08:00 Room Air 01/25/18 07:40 36.6 63 18 129/64 (85) 96 Room Air 01/25/18 04:00 Room Air 01/25/18 03:35 36.5 75 18 125/69 (87) 94 Room Air 01/25/18 00:05 36.7 62 16 121/61 (81) 96 Room Air 01/25/18 00:00 Room Air Post Procedure Recovery Score Activity: (2) Moves 4 extremities * Respiration: (2) Deep breath/cough Circulation: (2) +/-20% PreAnes Value Consciousness: (2) Fully Awake Oxygen Saturation: (2) > 92% On Room Air Post Anesthesia Score: 10 Discharge Sedation Level of Care: Fast Track Phase II Post Sedation Plan On clinical assessment, the patient appears to have tolerated the sedation without complications. Patient is recovering as anticipated. Patient will continue to be monitored by nursing and may be discharged when sedation discharge criteria are met per below protocol. Upon Completions of procedure and additional 15 minutes continue every 5 minute vital signs and the P.A.R. score; then discharge to a Phase I or Fast Track to Phase II per the following guidelines: * Discharge Patient to appropriate Phase II area if PAR is 8 or greater or return to pre- procedure baseline. The post - procedure orders will be as directed. * If PAR score is less than 8 or not return to pre-procedure baseline then patient will follow Phase I monitoring till PAR is reached for Phase II. The Phase I may be done in procedure room or may call to secure a Phase I area. * If naloxone or flumazenil are used for reversal, hold in Phase I for an additional 60 -120 minutes before discharge to Phase II. Please call the Sedation Physician to re-evaluate and complete post-note for discharge to Phase II area. Do NOT discharge from procedure sedation or Phase 1 until post- sedation evaluation note is complete by procedure /sedation MD Sedation Discharge Instructions to be given to the patient at discharge to home.
[2018-01-25] MEDS ORDERED: ATROPINE SULFATE 0.1 MG/ML 5ML SYR IV PRN (12:00)
[2018-01-25] MEDS ORDERED: ACETAMINOPHEN 325 MG TAB PO PRN (12:00)
[2018-01-25] MEDS ORDERED: ONDANSETRON INJ 2 MG/ML 2 ML VIAL IV PRN (12:00)
[2018-01-25] MEDS: SODIUM CHLORIDE 0.9% 1000ML 1,000 ML IV SCH ×2 (12:00→12:25)
--- NOTE | 2018-01-25 12:05 | Procedure Note ---
Cardiac Cath Report Procedure: 1. Left heart catheterization 2. Coronary angiography 3. Left ventriculogram History: This is a 67-year-old female who has a history of coronary stents within the right coronary artery. In June of last year she had in-stent restenosis and a drug-eluting stent was placed. Recently she's been having symptoms of dyspnea with exertion. She had an outpatient pharmacologic nuclear stress test that was negative at the end of December. She presented and was admitted to the hospital with symptoms of chest pain and dyspnea. Her cardiac markers were elevated and a decision was made to proceed with a cardiac catheterization. Procedure summary: After informed consent was obtained, the patient was taken to the cardiac catheterization lab where axis was obtained using a retrograde solider technique from the right femoral artery. Preformed 5 Gabonese diagnostic catheters were utilized for the coronary angiograms. A 5 Gabonese pigtail catheter was utilized for left ventriculogram and left heart catheterization. Following the procedure the patient had the arterial site closed with the minks device was transferred back to her room on the PACU in stable condition. Coronary angiography: Selective injections of the left coronary artery reveal the left main trunk to be patent. The LAD extends the apex of the heart. The LAD has a trifurcation in its mid segment giving off 2 diagonal branches. The LAD system has minor luminal irregularities but is widely patent. Left circumflex artery consist principally of a small to medium sized first marginal and then a large second marginal. The left circumflex system has minor luminal irregularities but is widely patent. There is dampening of the catheter at the origin of the right coronary artery. There is evidence of a previous stent being placed at the ostium and proximal portion of the right coronary artery on fluoroscopy. Injections into the right coronary artery reveal in-stent restenosis at the proximal and ostium of the right coronary artery. Left ventriculogram: The left ventricle was of normal size. There is hypokinesis of the inferior basilar and inferior myocardium. There is moderate mitral regurgitation. The aortic root and ascending aorta have normal morphology in diameter. The LVEDP is 26. The estimated left ventricular ejection fraction is 5055 percent. Summary: The patient has in-stent restenosis of the coronary stents placed at the proximal and ostium of the right coronary artery. There is distal collateral flow from the left coronary artery to the right. There is hypokinesis of the inferior basilar and inferior myocardium on the left ventriculogram. Recommendations: This patient has had in-stent restenosis now on 2 occasions with the most recent stent being a drug-eluting stent. I will have the films reviewed by the wardrobe technician at [facility] for further recommendations.
--- NOTE | 2018-01-25 12:09 | Cardiac Catheterization ---
Procedure Note Procedure Date Jan 25, 2018. Pre-Procedure Diagnosis Non STEMI AUC Score 9 Post-Procedure Diagnosis Severe CAD Procedure(s) Performed Coronary Angiography, Left Heart Cath, LV Angiography Glass Cut Off Tender Dr. Johnson [employer](s) None Estimated Blood Loss None Medication(s) Versed, Lidocaine 1% Summary of Findings See dictated report Hemodynamics Rest Ao: 145/71 Final Ao: 153/70 LV: 132/26 Recommendations management recommendations (we'll have the films reviewed by [facility] interventional past) Specimens None Radiation Exposure (mGy) 2045 Contrast (mls) 153 Disposition PCU ACC Data Cardiac Status Clinical evaluation leading to the procedure CAD Presntation: Unstable angina Anginal Classification: CCS III Heart Failure: No Cardiogenic Shock w/in 24Hrs: No Cardiac Arrest w/in 24Hrs: No Imaging studies past 6 months: Yes Stress studies past 6 months: Yes Stress Testing w/SPECT MPI: Yes - Negative Coronary Anatomy Dominant: Right Left Main (% Stenosis): Normal LAD (% Stenosis): Normal Circumflex (% Stenosis): Normal RCA (% Stenosis): Ostial (95) Left Ventricular Angiography EF (%): 55 Wall Motion: Inferior (Hypokinetic) Mitral Regurgitation: 2+ Diagnostic Physician's Name: Ryan Johnson, DO Status: Urgent Closure Device Percutaneous Entry Location: Femoral Closure Device: Mynx Recommendations: management recommendations (the films will be reviewed by [facility] interventionalists)
--- NOTE | 2018-01-25 13:34 | Pharmacy Progress Note ---
Glycemic Control Progress Note Date of Service Jan 25, 2018. Scope Glycemic Pharmacist consulted for glycemic control to write orders per [facility] inpatient glycemic control protocol. Objective Accuchecks BSG (last 24hrs): Test 01/24/18 16:38 01/24/18 20:29 01/25/18 00:19 01/25/18 03:55 Bedside Glucose 137 mg/dl (70-90) 186 mg/dl (70-90) 125 mg/dl (70-90) 155 mg/dl (70-90) Test 01/25/18 05:54 01/25/18 06:40 01/25/18 12:14 Random Glucose 153 mg/dl (70-99) Bedside Glucose 146 mg/dl (70-90) 131 mg/dl (70-90) HbA1c: Test 01/25/18 05:54 Hemoglobin A1c 9.8 % (4.5-5.6) H Recent Pertinent Medications The patient is currently receiving: * Basal insulin: Lantus 12 units SQ every 24 hours; dosed in the AM * Correctional Insulin: Novolog Correction per scale ACHS Goal Range: Low 120 mg/dL - High 150 mg/dL Correction Factor: 30 mg/dL/unit * Prandial insulin: Per carb ratio of 1 unit per 9 grams CHO consumed Outpatient Anti-Diabetic Meds * Lantus 18 units SQ PM * Metformin 1,000mg PO BID w/ meals * A1c = 9.8% 01/25/18 Assessment & Plan ASSESSMENT: 01/25/18 * Glycemic control adequate over the last 24 hours * BSGs ranged 120-186 over the last 24 hours * Fasting BSG 146 this AM w/ 12 units of Lantus on board (a reduced dose for today's planned cardiac cath procedure) * Post-prandial BSGs well controlled w/ current CR * A1c resulted today showing less than adequate control prior to admission (9.8% ) - would like to correlate w/ outpt BSGs PLAN FOR INPATIENT GLYCEMIC CONTROL: * Continuing Lantus 12 units SQ Q AM today; increase to 18 units SQ daily starting tomorrow * Continuing correction factor of 30 mg/dl/unit * Continuing carb ratio of 1 unit per 9 grams CHO consumed * Continuing goal range of Low 120 mg/dL - High 150 mg/dL * Please note that the plan above was derived based on current level of insulin resistance and hospital stress. These recommendations are appropriate for inpatient admission only. Plan of care upon discharge will need to be reassessed to avoid potential outpatient hypo/hyperglycemia. Thank you.
[2018-01-25] MEDS: ASPIRIN 81 MG ECTAB PO SCH (21:34)
[2018-01-25] MEDS: ATORVASTATIN 40 MG TAB PO SCH (21:34)
[2018-01-25] MEDS: CITALOPRAM 40 MG TAB PO SCH (21:34)
[2018-01-25] MEDS: METOPROLOL SUCC 25MG EXT REL TAB PO SCH (21:35)
[2018-01-26 00:09] VITALS: BP 120/60; PULSE 67; TEMP 36.5; O2SAT 97
[2018-01-26 00:10] VITALS: BP 120/60; PULSE 67; TEMP 36.5; O2SAT 97
[2018-01-26] MEDS: SODIUM CHLORIDE 0.9% 1000ML 1,000 ML IV SCH (01:09)
[2018-01-26 03:59] VITALS: BP 122/64; PULSE 62; TEMP 36.4; O2SAT 93
[2018-01-26 06:35] LABS: HEMATOCRIT 36.4 % (37-47); HEMOGLOBIN 12.1 g/dL (12.0-16.0); MEAN CORPUSCULAR HEMOGLOBIN 30.3 pg (25-34); MEAN CORPUSCULAR HGB CONC 33.2 g/dl (32-36); MEAN PLATELET VOLUME 10.8 fL (7.4-10.4); PLATELET COUNT 204 K/uL (130-400); RED CELL DISTRIBUTION WIDTH CV 13.6 % (11.5-14.5); RED CELL DISTRIBUTION WIDTH SD 45.4 fL (36.4-46.3); WHITE BLOOD COUNT 5.79 K/uL (4.8-10.8)
[2018-01-26 06:43] LABS: PTT PATIENT 22.6 SECONDS (21.0-31.0)
[2018-01-26 07:04] LABS: CALCIUM 8.4 mg/dl (8.5-10.1); CREATININE 0.62 mg/dl (0.60-1.20); POTASSIUM 4.1 mmol/L (3.5-5.1)
[2018-01-26 07:20] VITALS: BP 155/89; PULSE 68; TEMP 36.7; O2SAT 95
[2018-01-26] MEDS ORDERED: MAGNESIUM SULFATE 1GM / D5W 1 GM in PREMIXED IN D5W 100 ML IV ONE (07:45)
[2018-01-26] MEDS: CLOPIDOGREL BISULFATE 75 MG TAB PO SCH (08:00)
[2018-01-26] MEDS: ISOSORBIDE MONONITRATE 30 MG TABCR PO SCH (08:00)
[2018-01-26] MEDS: PANTOprazole SOD 40 MG TAB PO SCH (08:00)
[2018-01-26] MEDS: INSULIN ASPART 100 UNITS/ML 3 ML PEN SC SCH ×2 (08:05→12:32)
[2018-01-26] MEDS ORDERED: INSULIN GLARGINE SOLOSTAR 100 UNITS/ML 3 ML PEN SC SCH (09:00)
[2018-01-26] MEDS ORDERED: ISOSORBIDE MONONITRATE 30 MG TABCR PO ONE (10:00)
--- NOTE | 2018-01-26 10:06 | Cardiology Follow-Up ---
Subjective Subjective Date of Service: Jan 26, 2018. Pt evaluation today including: conversation w/ patient, physical exam, chart review, lab review, review of studies, review of inpatient medication list Additional Details: This is a 67-year-old female who is had in-stent restenosis of the proximal and ostium of the right coronary artery twice. Her last intervention was in June when she received additional drug-eluting stents. She presented with symptoms of ongoing dyspnea with activity. She underwent a cardiac catheterization this admission. It shows in-stent restenosis again in the proximal and ostium of the right coronary artery. The films have been reviewed by interventional cardiology at [facility]. The options for this patient at this point are for either brachii therapy for single-vessel bypass. The patient has had a history of breast cancer with right mastectomy and radiation. After a long discussion the patient is reluctant to receive any additional radiation. She would be more comfortable with coronary artery bypass. I have contacted cardiothoracic surgery [facility] for them to review the films and discussed the case. If they're willing to do the operation then we will transfer her to [facility]. Of note is that the patient did have some shortness of breath and mild chest discomfort going to the bathroom this morning. I do not believe that she can go home until we are able to effectively treat her coronary artery disease. I'm going to restart her heparin today. Problem List Medical Problems: (1) Hypomagnesemia Status: Acute (2) NSTEMI (non-ST elevated myocardial infarction) Status: Acute Objective Vital Signs Last Vital Signs Documentation Date Time Temp Pulse Resp B/P (MAP) Pulse Ox O2 Delivery O2 Flow Rate FiO2 01/26/18 07:20 36.7 68 18 155/89 (111) 95 Room Air 01/26/18 00:10 3.0 Physical Exam: General Appearance: WD/WN, no apparent distress ENT: normal ENT inspection, hearing grossly normal, pharynx normal Respiratory/Chest: chest non-tender, lungs clear, normal breath sounds, no respiratory distress Cardiovascular: regular rate, rhythm, no edema, no JVD, no murmur, + gallop/S4 Abdomen: normal bowel sounds, non tender, soft, no organomegaly, no pulsatile mass Extremities: normal range of motion, non-tender, normal inspection, no pedal edema, no calf tenderness Neurologic/Psychiatric: 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 Unstable angina 2. In-stent restenosis of the proximal and ostium of the right coronary artery 2 with the last being a drug-eluting stent in August 2017 3. Previous history of breast carcinoma treated with right mastectomy and radiation to the chest wall. Recommendations: As outlined above after careful consideration the patient is not interested in brachy therapy. She does not want to proceed with any additional radiation after having radiation treatments for breast cancer. I will wait for the surgeons to contact me back from [facility]. Medications: Current Inpatient Medications Medications (Trade) Dose Ordered Sig/Deborah Route Start Time Stop Time Status Last Admin Dose Admin Acetaminophen (Tylenol Tab) 650 mg Q4H PRN PO 01/24/18 08:15 02/23/18 08:14 01/25/18 18:40 650 MG Nitroglycerin (Nitrostat Tab) 0.4 mg UD PRN SL 01/24/18 08:15 02/23/18 08:14 Glucose (Glucose 40% Gel) 15-30 GRAMS 15 GRAMS... UD PRN PO 01/24/18 08:30 02/23/18 08:29 Glucose (Glucose Chew Tab) 4-8 Tablets 4 Tabl... UD PRN PO 01/24/18 08:30 02/23/18 08:29 Dextrose (Dextrose 50% 50ML Syringe) 25-50ML OF 50% DW IV FOR... UD PRN IV 01/24/18 08:30 02/23/18 08:29 Glucagon (Glucagon Inj) 1 mg UD PRN SQ 01/24/18 08:30 02/23/18 08:29 Miscellaneous Information (Consult Glycemic Management Pharmacy) 1 ea UD PRN N/A 01/24/18 08:27 02/23/18 08:26 Aspirin (Ecotrin Tab) 81 mg HS PO 01/24/18 21:00 02/23/18 20:59 01/25/18 21:34 81 MG Atorvastatin Calcium (Lipitor Tab) 80 mg HS PO 01/24/18 21:00 02/23/18 20:59 01/25/18 21:34 80 MG Citalopram Hydrobromide (celeXA TAB) 40 mg HS PO 01/24/18 21:00 02/23/18 20:59 01/25/18 21:34 40 MG Clopidogrel Bisulfate (plAVix TAB) 75 mg QAM PO 01/24/18 10:00 02/23/18 09:59 01/26/18 08:00 75 MG Metoprolol Succinate (Toprol Xl Tab) 25 mg HS PO 01/24/18 21:00 02/23/18 20:59 01/25/18 21:35 25 MG Pantoprazole Sodium (Protonix Tab) 40 mg QAM PO 01/25/18 09:00 02/24/18 08:59 01/26/18 08:00 40 MG Heparin Sodium/ Dextrose 500 ml @ 18 mls/hr Q24H PRN IV 01/24/18 10:30 02/23/18 10:29 01/25/18 07:16 18 MLS/HR Insulin Aspart (novoLOG ASPART) SLIDING SCALE If C... ACHS SC 01/24/18 16:15 02/23/18 09:59 01/26/18 08:05 8 UNITS Sodium Chloride 250 ml @ 999 mls/hr Q16M PRN IV 01/25/18 11:52 02/24/18 11:51 Atropine Sulfate (Atropine Sulfate 0.1mg/ml Inj) 0.6 mg PRN PRN IV 01/25/18 12:00 02/24/18 11:59 Ondansetron HCl (Zofran Inj) 4 mg Q6H PRN IV 01/25/18 12:00 02/24/18 11:59 Insulin Glargine (Lantus Solostar Pen) 18 units DAILY SC 01/26/18 09:00 02/25/18 08:59 01/26/18 08:05 18 UNITS Heparin Sodium/ Dextrose 1 ea NOW STAT N/A 01/26/18 09:51 01/26/18 09:52 UNV Isosorbide Mononitrate (Imdur Ext Rel Tab) 60 mg QAM PO 01/27/18 09:00 02/23/18 10:29 UNV Isosorbide Mononitrate (Imdur Ext Rel Tab) 30 mg NOW ONCE PO 01/26/18 10:00 01/26/18 10:01 UNV Lab Results: Last 24 Hours Test 01/25/18 12:14 01/25/18 16:57 01/25/18 20:31 01/26/18 06:12 Bedside Glucose 131 mg/dl 124 mg/dl 166 mg/dl White Blood Count 5.79 K/uL Red Blood Count 4.00 M/uL Hemoglobin 12.1 g/dL Hematocrit 36.4 % Mean Corpuscular Volume 91.0 fL Mean Corpuscular Hemoglobin 30.3 pg Mean Corpuscular Hemoglobin Concent 33.2 g/dl RDW Standard Deviation 45.4 fL RDW Coefficient of Variation 13.6 % Platelet Count 204 K/uL Mean Platelet Volume 10.8 fL Activated Partial Thromboplast Time 22.6 SECONDS Partial Thromboplastin Ratio 0.9 Sodium Level 140 mmol/L Potassium Level 4.1 mmol/L Chloride Level 110 mmol/L Carbon Dioxide Level 23 mmol/L Anion Gap 7.0 mmol/L Blood Urea Nitrogen 11 mg/dl Creatinine 0.62 mg/dl Est Creatinine Clear Calc Drug Dose 83.3 ml/min Estimated GFR () 108.9 Estimated GFR (Non- 94.0 BUN/Creatinine Ratio 16.9 Random Glucose 148 mg/dl Calcium Level 8.4 mg/dl Magnesium Level 1.7 mg/dl Test 01/26/18 06:41 01/26/18 09:57 Bedside Glucose 160 mg/dl
[2018-01-26 10:22] LABS: BASO % 0.6 %; BASO ABS # 0.04 K/uL (0-0.2); EOS % 1.8 %; EOS ABS # 0.11 K/uL (0-0.5); HEMOGLOBIN 12.5 g/dL (12.0-16.0); IG# 0.01 K/uL (0.00-0.02); LYMPH % 24.3 %; LYMPH ABS # 1.51 K/uL (1.2-3.4); MEAN CELL VOLUME 90.2 fL (80-100); MEAN CORPUSCULAR HEMOGLOBIN 30.5 pg (25-34); MONO % 7.1 %; MONO ABS # 0.44 K/uL (0.11-0.59); PLATELET COUNT 214 K/uL (130-400); RED CELL DISTRIBUTION WIDTH CV 13.6 % (11.5-14.5); RED CELL DISTRIBUTION WIDTH SD 45.2 fL (36.4-46.3); WHITE BLOOD COUNT 6.21 K/uL (4.8-10.8)
[2018-01-26 10:36] LABS: PTT PATIENT 24.6 SECONDS (21.0-31.0)
[2018-01-26 10:52] LABS: MEAN CORPUSCULAR HGB CONC 33.8 g/dl (32-36)
[2018-01-26 11:00] VITALS: BP 146/76; PULSE 71; TEMP 36.7; O2SAT 97
[2018-01-26] MEDS ORDERED: HEPARIN 25,000 UNIT/500ML D5W 500 ML IV PRN (11:00)
--- NOTE | 2018-01-26 12:16 | Pharmacy Progress Note ---
Glycemic Control Progress Note Date of Service Jan 26, 2018. Scope Glycemic Pharmacist consulted for glycemic control to write orders per [facility] inpatient glycemic control protocol. Objective Accuchecks BSG (last 24hrs): Test 01/25/18 12:14 01/25/18 16:57 01/25/18 20:31 01/26/18 06:12 Bedside Glucose 131 mg/dl (70-90) 124 mg/dl (70-90) 166 mg/dl (70-90) Random Glucose 148 mg/dl (70-99) Test 01/26/18 06:41 01/26/18 11:12 Bedside Glucose 160 mg/dl (70-90) 168 mg/dl (70-90) HbA1c: Test 01/25/18 05:54 Hemoglobin A1c 9.8 % (4.5-5.6) H Recent Pertinent Medications The patient is currently receiving: * Basal insulin: Lantus 18 units SQ every 24 hours; dosed in the AM * Correctional Insulin: Novolog Correction per scale ACHS Goal Range: Low 120 mg/dL - High 150 mg/dL Correction Factor: 30 mg/dL/unit * Prandial insulin: Per carb ratio of 1 unit per 9 grams CHO consumed Outpatient Anti-Diabetic Meds * Lantus 18 units SQ PM * Metformin 1,000mg PO BID w/ meals * A1c = 9.8% 01/25/18 Assessment & Plan ASSESSMENT: 01/25/18 * Glycemic control adequate over the last 24 hours * BSGs ranged 120-186 over the last 24 hours * Fasting BSG 146 this AM w/ 12 units of Lantus on board (a reduced dose for today's planned cardiac cath procedure) * Post-prandial BSGs well controlled w/ current CR * A1c resulted today showing less than adequate control prior to admission (9.8% ) - would like to correlate w/ outpt BSGs 01/26/18 * BSGs again well controlled over last 24 hours * BSGs have ranged 124-166 * Increased Lantus dose this AM to the dose she used prior to admission * Post-prandial BSGs controlled well with current Novolog order PLAN FOR INPATIENT GLYCEMIC CONTROL: * Continuing Lantus 18 units SQ Q AM * Continuing correction factor of 30 mg/dl/unit * Continuing carb ratio of 1 unit per 9 grams CHO consumed * Continuing goal range of Low 120 mg/dL - High 150 mg/dL RECOMMENDATIONS FOR DISCHARGE: * Continue Lantus 18 units SQ daily * Add Novolog 4 units with each meal on discharge; Security Systems Administrator had discussed meal-time insulin options with this patient and she is agreeable to using a set dose of Novolog with meals. * BSGs must be checked ACHS if Novolog is added * Would recommend f/u with PCP or endocrinology within 1 week of discharge to review insulin regimen and BSG log * Please note that the plan above was derived based on current level of insulin resistance and hospital stress. These recommendations are appropriate for inpatient admission only. Plan of care upon discharge will need to be reassessed to avoid potential outpatient hypo/hyperglycemia. Thank you.
--- NOTE | 2018-01-26 12:18 | Clinical Documentation Query ---
FAUSTINO aVlentine : CLINICAL DOCUMENTATION QUERY Patient is a 67 year old admitted for evaluation of SOB, chest pain, and presyncope. Cardiac catheterization demonstrated in-stent restenosis of the proximal and ostium of the RCA. As appropriate, consider explicit documentation of this association as suggested below. In addition the cardiac catheterization, patient has been monitored on telemetry with serial EKG's, cardiac enzymes, echocardiogram, ASA, BB, prn NTG, IV heparin, supplemental O2, and cardiology consultation. In your clinical opinion is this patient being managed for: ( x) NSTEMI due to in-stent restenosis of proximal and ostium of the RCA ( ) Not Agree ( ) Other explanation of clinical findings (Please Explain) ( ) Unable to determine (Please Define) ( ) Need to Discuss The medical record reflects the following clinical findings, treatment, and risk factors. Clinical Indicators: As above Treatment: In addition the cardiac catheterization, patient has been monitored on telemetry with serial EKG's, cardiac enzymes, echocardiogram, ASA, BB, prn NTG, IV heparin, supplemental O2, and cardiology consultation. Risk Factors: Age, CAD, HTN, hyperlipidemia, DMII, obesity Please clarify and document your clinical opinion in the progress notes and discharge summary. Terms such as "probable", "suspected", "likely", "questionable", "possible", or "still to be ruled out" are acceptable. IF IN AGREEMENT, YOU MUST DOCUMENT ABOVE DIAGNOSTIC STATEMENT IN DAILY PROGRESS NOTES AND DISCHARGE SUMMARY. This document is not part of the patient's record. Thank You, Monster Riggins, RN [phone]
--- NOTE | 2018-01-26 12:57 | Progress Note ---
Internal Med Progress Note Date of Service: Jan 26, 2018. Provider Documentation: SUBJECTIVE: Patient seen and examined by medical doctor with cardiology doctor. Patient aware of transfer from [facility] to [facility] in [place] OBJECTIVE: Exam: General- no acute distress Eyes- EOMI Neck - trachea midline Neck- no gross JVD Lungs- CTABL, no wheezing Heart-sinus rhythm, regular rate Abdomen-nontender, soft, + bowel sounds Extremities - no gross edema ASSESSMENT & PLAN: Hospital Course and Transfer plan 67-year-old female presents with symptoms of ongoing dyspnea with activity and NSTEMI on heparin drip Has had in-stent restenosis of the proximal and ostium of the right coronary artery in the past (H/O CAD S/P stents and restenosis of RCA S/P NAILA in Jun 2017 ) S/p cardiac catheterization on this admission: shows in-stent restenosis again in the proximal and ostium of the right coronary artery. Cardiology service ([facility] affiliated) at [facility] has discussed interventional cardiology at [facility] in [place] for transfer for coronary artery bypass Continue on IV heparin, Aspirin, Plavix, Imdur, statins, Metoprolol ECHO: The study is technically limited due to the patient history of breast implants. The left ventricle is normal in size. Left ventricular systolic function is normal. Ejection Fraction = 55-60%. The right ventricular systolic function is normal. The left atrial size is normal. Right atrial size is normal. No significant valvular pathology. Hypomagnesemia: serum magnesium 1.7 in 01/26/18 and patient received IV magnesium DM Type II A1C:9.8 Holding oral diabetic meds and on insulin as inpatient only The patient has had a history of breast cancer with right mastectomy and radiation. Follows with as outpatient Anxiety disorder: continue Celexa GERD: continue PPI Disposition: transfer [facility] in [place] for coronary artery bypass, accepting physician is Dr. Yao Quezada Vital Signs: Date Time Temp Pulse Resp B/P (MAP) Pulse Ox O2 Delivery O2 Flow Rate FiO2 01/26/18 12:00 Room Air 01/26/18 11:00 36.7 71 17 146/76 (99) 97 Room Air 01/26/18 08:00 Room Air 01/26/18 07:20 36.7 68 18 155/89 (111) 95 Room Air 01/26/18 04:00 Room Air 01/26/18 03:59 36.4 62 18 122/64 (83) 93 01/26/18 00:10 36.5 67 18 120/60 (80) 97 Room Air 3.0 01/26/18 00:09 36.5 67 18 120/60 (80) 97 Room Air 01/25/18 23:59 Room Air 01/25/18 20:28 36.4 61 20 129/68 (88) 97 Room Air 01/25/18 20:00 Room Air 01/25/18 18:00 66 19 143/78 (99) 98 Room Air 01/25/18 17:00 73 16 128/70 (89) 97 Room Air 01/25/18 16:00 Room Air 01/25/18 16:00 64 23 125/74 (91) 95 Room Air 01/25/18 15:00 65 20 125/67 (86) 97 Nasal Cannula 3.0 01/25/18 14:00 36.8 55 16 106/60 (75) 98 Nasal Cannula 3.0 01/25/18 13:45 36.9 58 16 123/73 (90) 98 Nasal Cannula 3.0 01/25/18 13:30 36.8 60 17 116/67 (83) 99 Nasal Cannula 3.0 01/25/18 13:15 36.8 58 17 113/65 (81) 98 Nasal Cannula 3.0 Lab Results: Results Past 24 Hours Test 01/25/18 16:57 01/25/18 20:31 01/26/18 06:12 01/26/18 06:41 Range/Units Bedside Glucose 124 166 160 70-90 mg/dl White Blood Count 5.79 4.8-10.8 K/uL Red Blood Count 4.00 4.2-5.4 M/uL Hemoglobin 12.1 12.0-16.0 g/dL Hematocrit 36.4 37-47 % Mean Corpuscular Volume 91.0 80-100 fL Mean Corpuscular Hemoglobin 30.3 25-34 pg Mean Corpuscular Hemoglobin Concent 33.2 32-36 g/dl RDW Standard Deviation 45.4 36.4-46.3 fL RDW Coefficient of Variation 13.6 11.5-14.5 % Platelet Count 204 130-400 K/uL Mean Platelet Volume 10.8 7.4-10.4 fL Activated Partial Thromboplast Time 22.6 21.0-31.0 SECONDS Partial Thromboplastin Ratio 0.9 Sodium Level 140 136-145 mmol/L Potassium Level 4.1 3.5-5.1 mmol/L Chloride Level 110 98-107 mmol/L Carbon Dioxide Level 23 21-32 mmol/L Anion Gap 7.0 3-11 mmol/L Blood Urea Nitrogen 11 7-18 mg/dl Creatinine 0.62 0.60-1.20 mg/dl Est Creatinine Clear Calc Drug Dose 83.3 ml/min Estimated GFR () 108.9 Estimated GFR (Non- 94.0 BUN/Creatinine Ratio 16.9 10-20 Random Glucose 148 70-99 mg/dl Calcium Level 8.4 8.5-10.1 mg/dl Magnesium Level 1.7 1.8-2.4 mg/dl Test 01/26/18 10:03 01/26/18 11:12 Range/Units White Blood Count 6.21 4.8-10.8 K/uL Red Blood Count 4.10 4.2-5.4 M/uL Hemoglobin 12.5 12.0-16.0 g/dL Hematocrit 37.0 37-47 % Mean Corpuscular Volume 90.2 80-100 fL Mean Corpuscular Hemoglobin 30.5 25-34 pg Mean Corpuscular Hemoglobin Concent 33.8 32-36 g/dl Platelet Count 214 130-400 K/uL Mean Platelet Volume 11.0 7.4-10.4 fL Neutrophils (%) (Auto) 66.0 % Lymphocytes (%) (Auto) 24.3 % Monocytes (%) (Auto) 7.1 % Eosinophils (%) (Auto) 1.8 % Basophils (%) (Auto) 0.6 % Neutrophils # (Auto) 4.10 1.4-6.5 K/uL Lymphocytes # (Auto) 1.51 1.2-3.4 K/uL Monocytes # (Auto) 0.44 0.11-0.59 K/uL Eosinophils # (Auto) 0.11 0-0.5 K/uL Basophils # (Auto) 0.04 0-0.2 K/uL RDW Standard Deviation 45.2 36.4-46.3 fL RDW Coefficient of Variation 13.6 11.5-14.5 % Immature Granulocyte % (Auto) 0.2 % Immature Granulocyte # (Auto) 0.01 0.00-0.02 K/uL Prothrombin Time 10.5 9.0-12.0 SECONDS Prothromb Time International Ratio 1.0 0.9-1.1 Activated Partial Thromboplast Time 24.6 21.0-31.0 SECONDS Partial Thromboplastin Ratio 0.9 Bedside Glucose 168 70-90 mg/dl
--- NOTE | 2018-01-26 13:10 | Discharge Instructions ---
Discharge Instructions Date of Service Jan 26, 2018. Admission Reason for Admission: Nstemi Discharge Discharge Diagnosis / Problem: stent restenosis of the proximal and ostium of the right coronary artery Discharge Goals Goal(s): Improve disease control Activity Recommendations Activity Limitations: per Instructions/Follow-up section Shower/Bathe: no limitations . Instructions / Follow-Up Instructions / Follow-Up Hospital Course and Transfer plan 67-year-old female presents with symptoms of ongoing dyspnea with activity and NSTEMI on heparin drip Has had in-stent restenosis of the proximal and ostium of the right coronary artery in the past (H/O CAD S/P stents and restenosis of RCA S/P NAILA in Jun 2017 ) S/p cardiac catheterization on this admission: shows in-stent restenosis again in the proximal and ostium of the right coronary artery. Cardiology service ([facility] affiliated) at [facility] has discussed interventional cardiology at [facility] in [place] for transfer for coronary artery bypass Continue on IV heparin, Aspirin, Plavix, Imdur, statins, Metoprolol ECHO: The study is technically limited due to the patient history of breast implants. The left ventricle is normal in size. Left ventricular systolic function is normal. Ejection Fraction = 55-60%. The right ventricular systolic function is normal. The left atrial size is normal. Right atrial size is normal. No significant valvular pathology. Hypomagnesemia: serum magnesium 1.7 in 01/26/18 and patient received IV magnesium DM Type II A1C:9.8 Holding oral diabetic meds and on insulin as inpatient only The patient has had a history of breast cancer with right mastectomy and radiation. Follows with as outpatient Anxiety disorder: continue Celexa GERD: continue PPI Disposition: transfer [facility] in [place] for coronary artery bypass, accepting physician is Dr. Yao Quezada Current Hospital Diet Patient's current hospital diet: AHA Diet (Heart Healthy), Diabetes Type 2 Diet Discharge Diet Recommended Diet: AHA Diet (Heart Healthy), Diabetes Type 2 Diet Pending Studies Studies pending at discharge: no Laboratory Results 01/26/18 10:03 Red Blood Count 4.10, Mean Corpuscular Volume 90.2, Mean Corpuscular Hemoglobin 30.5, Mean Corpuscular Hemoglobin Concent 33.8, Mean Platelet Volume 11.0, Neutrophils (%) (Auto) 66.0, Lymphocytes (%) (Auto) 24.3, Monocytes (%) (Auto) 7.1, Eosinophils (%) (Auto) 1.8, Basophils (%) (Auto) 0.6, Neutrophils # (Auto) 4.10, Lymphocytes # (Auto) 1.51, Monocytes # (Auto) 0.44, Eosinophils # (Auto) 0.11, Basophils # (Auto) 0.04 01/26/18 06:12 Test 01/24/18 06:40 01/24/18 07:10 01/24/18 15:11 01/24/18 22:19 Total Bilirubin 0.3 mg/dl (0.2-1) Direct Bilirubin 0.1 mg/dl (0-0.2) Aspartate Amino Transf (AST/SGOT) 35 U/L (15-37) Alanine Aminotransferase (ALT/SGPT) 42 U/L (12-78) Alkaline Phosphatase 101 U/L (45-117) Total Creatine Kinase 185 U/L (26-192) Creatine Kinase MB 12.7 ng/ml (0.5-3.6) Creatine Kinase MB Ratio 6.9 (0-3.0) Pro-B-Type Natriuretic Peptide 752 pg/ml (0-900) Total Protein 6.9 gm/dl (6.4-8.2) Albumin 3.4 gm/dl (3.4-5.0) Influenza Type A (RT-PCR) Neg for Influ A (NEG) Influenza Type B (RT-PCR) Neg for Influ B (NEG) Urine Color YELLOW Urine Appearance CLEAR (CLEAR) Urine pH 5.5 (4.5-7.5) Urine Specific [place] 1.012 (1.000-1.030) Urine Protein NEG (NEG) Urine Glucose (UA) TRACE (NEG) Urine Ketones NEG (NEG) Urine Occult Blood NEG (NEG) Urine Nitrite NEG (NEG) Urine Bilirubin NEG (NEG) Urine Urobilinogen NEG (NEG) Urine Leukocyte Esterase NEG (NEG) Troponin I 2.160 ng/ml (0-0.045) Test 01/25/18 05:54 01/26/18 06:12 01/26/18 10:03 01/26/18 11:12 Estimated Average Glucose 235 mg/dl Hemoglobin A1c 9.8 % (4.5-5.6) Triglycerides Level 174 mg/dl (0-150) Cholesterol Level 130 mg/dl (0-200) HDL Cholesterol 38 mg/dl LDL Cholesterol, Calculated 57 mg/dl VLDL Cholesterol, Calculated 35 mg/dl Cholesterol/HDL Ratio 3.4 Anion Gap 7.0 mmol/L (3-11) Est Creatinine Clear Calc Drug Dose 83.3 ml/min Estimated GFR () 108.9 Estimated GFR (Non- 94.0 BUN/Creatinine Ratio 16.9 (10-20) Calcium Level 8.4 mg/dl (8.5-10.1) Magnesium Level 1.7 mg/dl (1.8-2.4) White Blood Count 6.21 K/uL (4.8-10.8) Red Blood Count 4.10 M/uL (4.2-5.4) Hemoglobin 12.5 g/dL (12.0-16.0) Hematocrit 37.0 % (37-47) Mean Corpuscular Volume 90.2 fL (80-100) Mean Corpuscular Hemoglobin 30.5 pg (25-34) Mean Corpuscular Hemoglobin Concent 33.8 g/dl (32-36) Platelet Count 214 K/uL (130-400) Mean Platelet Volume 11.0 fL (7.4-10.4) Neutrophils (%) (Auto) 66.0 % Lymphocytes (%) (Auto) 24.3 % Monocytes (%) (Auto) 7.1 % Eosinophils (%) (Auto) 1.8 % Basophils (%) (Auto) 0.6 % Neutrophils # (Auto) 4.10 K/uL (1.4-6.5) Lymphocytes # (Auto) 1.51 K/uL (1.2-3.4) Monocytes # (Auto) 0.44 K/uL (0.11-0.59) Eosinophils # (Auto) 0.11 K/uL (0-0.5) Basophils # (Auto) 0.04 K/uL (0-0.2) RDW Standard Deviation 45.2 fL (36.4-46.3) RDW Coefficient of Variation 13.6 % (11.5-14.5) Immature Granulocyte % (Auto) 0.2 % Immature Granulocyte # (Auto) 0.01 K/uL (0.00-0.02) Prothrombin Time 10.5 SECONDS (9.0-12.0) Prothromb Time International Ratio 1.0 (0.9-1.1) Activated Partial Thromboplast Time 24.6 SECONDS (21.0-31.0) Partial Thromboplastin Ratio 0.9 Bedside Glucose 168 mg/dl (70-90) Hemoglobin A1c Test 01/25/18 05:54 Range/Units Estimated Average Glucose 235 mg/dl Hemoglobin A1c 9.8 H 4.5-5.6 % Lipid Panel Test 01/25/18 05:54 Range/Units Triglycerides Level 174 H 0-150 mg/dl Cholesterol Level 130 0-200 mg/dl HDL Cholesterol 38 mg/dl Cholesterol/HDL Ratio 3.4 LDL Cholesterol, Calculated 57 mg/dl Medical Emergencies . Who to Call and When: Medical Emergencies: If at any time you feel your situation is an emergency, please call 911 immediately. . Non-Emergent Contact Non-Emergency issues call your: Hull Molder . . "Provider Documentation" section prepared by Grady Sarmiento. .
[2018-01-26] MEDS: ACETAMINOPHEN 325 MG TAB PO PRN (13:44)
[2018-01-26 14:08] VITALS: BP 146/76; PULSE 71; TEMP 36.7; O2SAT 97
--- NOTE | 2018-01-26 17:40 | Discharge Summary ---
Discharge Summary Date of Service Jan 26, 2018. Discharge Summary Admission Date: Jan 24, 2018 at 08:19 Discharge Date: Jan 26, 2018 Discharge Disposition: Acute care facility Principal Diagnosis: stent restenosis of the proximal and ostium of the right coronary artery, dyspnea with activity and NSTEMI Secondary Diagnoses/Problems: Hypomagnesemia DM Type II history of breast cancer with right mastectomy and radiation Anxiety disorder GERD Medication Reconciliation Continued Medications: Acetaminophen (Tylenol) 500 Mg Tab 500 MG PO UD Aspirin (Aspirin 81) 81 Mg Tab 81 MG PO HS Atorvastatin (Lipitor) 80 Mg Tab 1 TAB PO HS Citalopram (Citalopram Hydrobromide) 40 Mg Tab 1 TAB PO HS Clopidogrel (Plavix) 75 Mg Tab 75 MG PO 0900 Insulin Glargine (Lantus) Vial 18 UNITS SC PM Isosorbide Mononitrate Ext Rel (Imdur Ext Rel) 30 Mg Ertab 1 TAB PO QAM Metoprolol Succ (Toprol Xl) (Toprol-Xl) 25 Mg Tabcr 25 MG PO HS Nitroglycerin (Nitrostat) 0.4 Mg Tab 1 TAB SL UD PRN for Chest Pain Pantoprazole (Protonix) 40 Mg Tab 40 MG PO QAM Discontinued Medications: Metformin Hcl (Glucophage) 1,000 Mg Tab 1000 MG PO BIDM Admission Information HPI (per Admitting provider): Patient is a 67yr female with PMH CAD S/P stents and restenosis of RCA S/P NAILA in Jun 2017, DM II, Breast Cancer S/P surgery, chemo and radiation therapy, HTN , HLP, Anxiety disorder, GERD, fatty liver and other problems presents with history of SOB, chest pain, presyncope. Patient states she has been feeling tired since last 2 days and has SOB in minimal exertion. Reports noticing left sided chest heaviness yesterday at around 8pm and has progressively worsened since then. She experienced a near syncopal event this morning which is associated with nausea, diaphoresis and chest pain. Chest pain is 9/10 intensity , left sided, heaviness like, increases with deep breathing, radiates to back and neck which improved with NTG. Currently states chest pain is about 5/10. Also reports occipital headache and has been taking Tylenol since 2 days. She states having chemical stress test on which was normal. Denies any history of pedal edema, cough, fever, chills, fall, head trauma, LOC, vomiting, abdominal pain, diarrhea, dysuria, recent change in medications. Physical Exam (per Admitting): General Appearance: WD/WN, no apparent distress, + pertinent finding ( Anxious) Head: normocephalic, atraumatic Eyes: normal inspection, PERRL, EOMI ENT: normal ENT inspection, hearing grossly normal Neck: supple, trachea midline Respiratory/Chest: chest non-tender, lungs clear, normal breath sounds, no respiratory distress, no accessory muscle use Cardiovascular: regular rate, rhythm, no edema, no murmur, + pertinent finding (Left sided tenderness to palpate) Abdomen/GI: normal bowel sounds, non tender, soft Back: normal inspection Extremities/Musculoskelatal: normal inspection, no pedal edema Neurologic/Psych: ultrasound tester II-XII nml as tested, no motor/sensory deficits, alert , oriented x 3, + pertinent finding (anxious) Skin: normal color, warm/dry Hospital Course Hospital Course and Transfer plan 67-year-old female presents with symptoms of ongoing dyspnea with activity and NSTEMI on heparin drip Has had in-stent restenosis of the proximal and ostium of the right coronary artery in the past (H/O CAD S/P stents and restenosis of RCA S/P NAILA in Jun 2017 ) S/p cardiac catheterization on this admission: shows in-stent restenosis again in the proximal and ostium of the right coronary artery. Cardiology service ([facility] affiliated) at [facility] has discussed interventional cardiology at [facility] in [place] for transfer for coronary artery bypass Continue on IV heparin, Aspirin, Plavix, Imdur, statins, Metoprolol ECHO: The study is technically limited due to the patient history of breast implants. The left ventricle is normal in size. Left ventricular systolic function is normal. Ejection Fraction = 55-60%. The right ventricular systolic function is normal. The left atrial size is normal. Right atrial size is normal. No significant valvular pathology. Hypomagnesemia: serum magnesium 1.7 in 01/26/18 and patient received IV magnesium DM Type II A1C:9.8 Holding oral diabetic meds and on insulin as inpatient only The patient has had a history of breast cancer with right mastectomy and radiation. Follows with as outpatient Anxiety disorder: continue Celexa GERD: continue PPI Disposition: transfer [facility] in [place] for coronary artery bypass, accepting physician is Dr. Yao Quezada Total time spent on discharge = 60 minutes This includes examination of the patient, discharge planning, medication reconciliation, and communication with other providers. Discharge Instructions see above
[2018-01-27] MEDS ORDERED: ISOSORBIDE MONONITRATE 60 MG TABCR PO SCH (09:00)
== END 2018-01-26 14:10 | disposition short-term general hospital (02) | DRG 282 ==
LOC: EDBD 06:31 → C.EDB 06:33 → C.2E 08:19 → ENRESERV 08:44
PROVIDERS: ADMIT Internal Medicine; ATTEND Hospitalist
PROC: 4A023N7 Measurement of Cardiac Sampling and Pressure, Left Heart, Percutaneous Approach (ICD-10-PCS; principal; 2018-01-25 10:42)
PROC: B211YZZ Fluoroscopy of Multiple Coronary Arteries using Other Contrast (ICD-10-PCS; principal; 2018-01-25 10:42)
DX: T82.855A Stenosis of coronary artery stent, initial encounter (principal); I21.4 Non-ST elevation (NSTEMI) myocardial infarction; E83.42 Hypomagnesemia; I11.9 Hypertensive heart disease without heart failure; I25.10 Atherosclerotic heart disease of native coronary artery without angina pectoris; E78.5 Hyperlipidemia, unspecified; E11.9 Type 2 diabetes mellitus without complications; K21.9 Gastro-esophageal reflux disease without esophagitis; F41.9 Anxiety disorder, unspecified; E66.9 Obesity, unspecified; Z79.899 Other long term (current) drug therapy; Z79.4 Long term (current) use of insulin; Z79.82 Long term (current) use of aspirin; Z79.02 Long term (current) use of antithrombotics/antiplatelets; Z95.5 Presence of coronary angioplasty implant and graft; Z85.3 Personal history of malignant neoplasm of breast; Z92.21 Personal history of antineoplastic chemotherapy; Z92.3 Personal history of irradiation; Z68.37 Body mass index [BMI] 37.0-37.9, adult; Z87.891 Personal history of nicotine dependence; Z88.1 Allergy status to other antibiotic agents; Z80.3 Family history of malignant neoplasm of breast; Z80.0 Family history of malignant neoplasm of digestive organs; Y83.2 Surgical operation with anastomosis, bypass or graft as the cause of abnormal reaction of the patient, or of later complication, without mention of misadventure at the time of the procedure

== ENCOUNTER 2019-08-25 18:02 | Inpatient (IN) ==
--- NOTE | 2019-08-25 18:46 | XRay Report ---
XR chest 1V portable CLINICAL HISTORY: Atypical chest pain COMPARISON STUDY: 06/13/2019 FINDINGS: There are postsurgical changes of a midline sternotomy. There is no failure. There is no fo nikhil pulmonary consolidation. There are no pleural effusions.[ IMPRESSION: No active disease in the chest. Electronically signed by: Desmond Ortega M.D. 08/25/2019 6:45 PM
[2019-08-25 18:55] LABS: Basophils # (auto) 0.05 K/uL (0-0.2); Basophils % (auto) 0.5 %; Eosinophils # (auto) 0.18 K/uL (0-0.5); Eosinophils % (auto) 1.7 %; Hematocrit (blood only) 40.6 % (37-47); Hemoglobin 13.9 g/dL (12.0-16.0); Immature Granulocytes # (auto) 0.03 K/uL (0.00-0.02); Immature Granulocytes % (auto) 0.3 %; Lymphocytes # (auto) 3.53 K/uL (1.2-3.4); Lymphocytes % (auto) 32.5 %; Mean Corpuscular Hemoglobin 30.8 pg (25-34); Mean Corpuscular Hgb Conc 34.2 g/dL (32-36); Mean Platelet Volume 11.6 fL (7.4-10.4); Monocytes # (auto) 0.85 K/uL (0.11-0.59); Monocytes % (auto) 7.8 %; Neutrophils # (auto) 6.21 K/uL (1.4-6.5); Neutrophils % (auto) 57.2 %; Platelet Count 249 K/uL (130-400); RDW Coefficient of Variation 13.3 % (11.5-14.5); RDW Standard Deviation 43.7 fL (36.4-46.3); Red Blood Count 4.51 M/uL (4.2-5.4); White Blood Count 10.85 K/uL (4.8-10.8)
[2019-08-25 19:46] LABS: Alanine Aminotransferase 49 U/L (12-78); Alkaline Phosphatase 100 U/L (45-117); Aspartate Aminotransferase 31 U/L (15-37); BUN Creatinine Ratio 16.6 (10-20); Bilirubin,Total 0.3 mg/dl (0.2-1); Blood Urea Nitrogen 15 mg/dl (7-18); Calcium 8.7 mg/dl (8.5-10.1); Carbon Dioxide 25 mmol/L (21-32); Chloride 104 mmol/L (98-107); Creatinine Clr Calc Pharmacy 54.5 ml/min; Est GFR (African American) 73.7; Est GFR (Non-African American) 63.6; Glucose 189 mg/dl (70-99); Lipase 92 U/L (73-393); Magnesium 1.2 mg/dl (1.8-2.4); Phosphorus 2.8 mg/dl (2.5-4.9); Potassium 3.5 mmol/L (3.5-5.1); Sodium 137 mmol/L (136-145); Troponin I < 0.015 ng/ml (0-0.045)
[2019-08-25] MEDS ORDERED: OPTIRAY 320 125ml IV PRN (20:30)
--- NOTE | 2019-08-25 20:44 | CT Scan Report ---
CT ANGIOGRAM OF THE CHEST CLINICAL HISTORY: Atypical chest pain COMPARISON STUDY: Chest x-ray dated 08/25/2019 TECHNIQUE: Following the IV administration of 116 mL of [id number]-320, CT angiogram of the thorax was p erformed from the thoracic inlet to the lung bases utilizing the pulmonary embolus protocol. Images a re reviewed in the axial, sagittal, and coronal planes. IV contrast was administered without complica tion. MIP imaging was performed. A dose lowering technique was utilized adhering to the principles o f ALARA. CT DOSE: 310.59 mGy.cm FINDINGS: No pathologically enlarged axillary mediastinal or hilar lymph nodes were visualized. There was no evidence of thoracic aortic dilatation. There were no pulmonary artery filling defects to indicate acute pulmonary embolism. No pleural effusions are visualized. There are right basilar atelectatic changes. There are no airspace opacities to indicate pneumonia. There are postsurgical changes of midline sternotomy. There are bilateral breast implants. There is probable hepatic steatosis. IMPRESSION: 1. No acute intrathoracic findings 2. No evidence of acute pulmonary embolism 3. There are no airspace opacities to indicate pneumonia. Electronically signed by: Desmond Ortega M.D. 08/25/2019 8:43 PM
--- NOTE | 2019-08-25 21:00 | Emergency Department Note ---
ED Visit Note This patient was seen in concert with Dr. Ignacio and we discussed and agreed upon the history, physical, assessment and plan. See attending's note for details. . Resident Activity Tracking Resident Involvement: Resident Care Provided Care Provided: Adult ED
[2019-08-25] MEDS: MAGNESIUM SULFATE / D5W 1 GM/100 ML BAG IV SCH ×2 (21:03→21:57)
--- NOTE | 2019-08-25 21:59 | Emergency Department Note ---
Entered by Corrine Tobar acting as a scribe for History of Present Illness General Chief complaint: Chest Pain Stated complaint: CHEST PAIN,LEFT ARM ACHE Time Seen by Provider: 08/25/19 18:23 Source: patient History of Present Illness Onset (ago): day(s) 4 Location: chest Radiation: back Pain Consistency: + intermittent Maximum Pain Intensity: 8 Quality: + sharp Relieved By: + medication (Nitroglycerin) Exacerbated By: not by movement (exertion) Associated symptoms: + shortness of breath and + weakness (and numbness in right hand and arm) The patient is a 68 year old female who presents to the Emergency Room with complaints of intermittent chest pain starting 4 days ago. The patient states that over the past 4 days she has had one episode a day of chest pain, until today which she had multiple episodes. She states that each time she gets sharp left sided chest pain that starts to the left of her sternum, wraps under her left breast, and radiates to just under her left shoulder blade. She reports that each episode lasts 7 minutes each and always come on at rest. She states that today when it came multiple times she became scared and took a Nitroglycerin, which took the sharp pain away but left a heaviness in her chest. She notes that this is a much different feeling than when she had her NM, but was still nervous. The patient complains of shortness of breath and numbness/weakness in her left hand and arm. The patient denies the pain being worse with exertion and recent trauma to her chest. Home Medications Home Medications Medication Instructions Recorded Confirmed Type acetaminophen 500 - 1,000 mg PO TID PRN 06/13/19 08/25/19 History aspirin [Aspirin Low Dose] 81 mg PO HS 06/13/19 08/25/19 History atorvastatin 80 mg PO HS 06/13/19 08/25/19 History insulin glargine [Lantus Solostar 36 unit SUBCUT 06/13/19 08/25/19 History U-100 Insulin] isosorbide mononitrate 60 mg PO QAM 06/13/19 08/25/19 History metformin 1,000 mg PO BID 06/13/19 08/25/19 History metoprolol succinate 100 mg PO HS 06/13/19 08/25/19 History pantoprazole 40 mg PO QAM 06/13/19 08/25/19 History escitalopram oxalate [Lexapro] 10 mg PO HS 07/18/19 08/25/19 History semaglutide [Ozempic] 0.5 mg SUBCUT WK 08/25/19 08/25/19 History Allergies Allergy/AdvReac Type Severity Reaction Status Date / Time cefuroxime Allergy Intermediate HIVES Verified 08/25/19 19:03 Past Med/Surg History Medical History GERD (gastroesophageal reflux disease) (Chronic) Anxiety (Chronic) DM type 2 (diabetes mellitus, type 2) (Chronic) HTN (hypertension) (Chronic) Dyslipidemia (Chronic) Breast cancer (Chronic) RT BREAST (SURGERY WITH CHEMO AND RADIATION) CAD (coronary artery disease) (Chronic) "06/2016 - abnormal stress block tester to cardiac cath on 07/09/16 that showed 90% ostial RCA stenosis s/p stenting" Depression Myocardial Infarction JANUARY 2018 Peripheral neuropathy Temporomandibular joint disorder Surgical History S/P CABG x 21 JANUARY 2018 [facility] History of bilateral mastectomy (Chronic) WITH RECONSTRUCTION History of appendectomy History of dilatation and curettage History of heart artery stent 3 STENTS PLACED TOTAL IN THE PAST (2 YEARS AGO) FOLLOWS WITH CARDIOLOGY>BABATUNDELuis Angel History of tonsillectomy History of total hysterectomy History of vascular access device PORT INSERTION AND REMOVAL Family History Uncle Family history of diabetes mellitus Social History Preferred Language: Dominican Communication Ability: Effective Pilot Submersible Required: No Beliefs That Will Affect Care: None marital status: Single Current Living Situation: Alone current occupational status: retired Other Information That Helps Us Care for You: No Feels Safe at Home: Yes Safety Concerns: Feels Safe At This Time Smoking Status: Former smoker Tobacco Type: cigarettes ; Do You Dip or Chew Tobacco: No ; Second Hand Exposure: Yes ; Hx Alcohol Use: No Hx Substance Use: No Review of Systems See HPI for pertinent positives & negatives. and A total of 10 systems reviewed and were otherwise negative Physical Exam Vital Signs Vital Signs - 24 hr 08/25/19 18:05 08/25/19 19:01 08/25/19 20:51 Temperature 36.4 C L Temperature Source Oral Sepsis Recent Fever Within 48 Hours No Sepsis New/Unexplained Change in Mental Status No Sepsis Action Taken by Nursing No Action Required Pulse Rate 88 Pulse Rate [Apical] 91 H 90 Respiratory Rate 16 18 18 Respiratory Effort / Characteristics Non-Labored Spontaneous Respiratory Depth Normal Blood Pressure 165/93 H Blood Pressure [Left Arm] 141/89 H 135/87 Blood Pressure Mean 117 Blood Pressure Mean [Left Arm] 106 103 Pulse Oximetry 95 95 95 Oxygen Delivery Method Room Air Room Air GENERAL: Awake, alert, well-appearing, in no distress HENT: Normocephalic, atraumatic. Oropharynx with dry mucous membranes and otherwise unremarkable. EYES: Normal conjunctiva. Sclera non-icteric. NECK: Supple. No nuchal rigidity. FROM. No JVD. RESPIRATORY: Clear to auscultation bilaterally. CARDIAC: Regular rate, normal rhythm. Extremities warm and well perfused. Pulses equal. ABDOMEN: Soft, non-distended. No tenderness to palpation. No rebound or guarding. No masses. RECTAL: Deferred. MUSCULOSKELETAL: Chest examination reveals no tenderness. The back is symmetric al on inspection without obvious abnormality. There is no CVA tenderness to palpation. No joint edema. LOWER EXTREMITIES: Calves are equal size bilaterally and non-tender. No edema. No discoloration. NEURO: Normal sensorium. No sensory or motor deficits noted. SKIN: No rash or jaundice noted. Course 1825: Past medical records reviewed the resident, Magaly Horan. The patient was evaluated in room C3. A complete history and physical exam was performed by the resident. 1946: Past medical records reviewed. The patient was evaluated in room C3. A complete history and physical exam was performed. 1922: I reevaluated the patient and updated her on her test results. I discussed the treatment plan with her. She verbally agrees and understands. 2004: I discussed the patient's case with Dr. Mariam Qiu. He will evaluate the patient for further management. Consultations Consultation #1: I discussed the patient's case with Dr. Mariam Qiu. He will evaluate the patient for further management. Time: 20:05 Administered Medications Discontinued Medications Magnesium Sulfate/Dextrose (Magnesium Sulfate / D5w) 1 gm in 100 mls @ 100 mls/hr IV Q1H DANIELLE Stop: 08/25/19 21:59 Last Infusion: 08/25/19 22:58 Dose: 0 mls/hr Documented by: [id number] Admin: 08/25/19 21:57 Dose: 100 mls/hr Documented by: [id number] Infusion: 08/25/19 21:57 Dose: 100 mls/hr Documented by: [id number] Admin: 08/25/19 21:03 Dose: 100 mls/hr Documented by: [id number] Insulin Glargine (Lantus Solostar Pen) 15 units SC NOW ONE Stop: 08/25/19 23:46 Last Admin: 08/26/19 00:42 Dose: 15 units Documented by: [id number] Cosigned by: [id number] Ioversol (Optiray 320 125ml) 116 ml IV ONCE PRN PRN Reason: Interaction Checking Stop: 08/29/19 20:29 Last Admin: 08/25/19 20:31 Dose: 116 ml Documented by: [id number] Medical Decision Making Differential Diagnosis Differential diagnoses includes but is not limited to acute coronary syndrome, myocardial infarction, pericarditis, pulmonary embolus, aortic dissection, pneumonia, pneumothorax, musculoskeletal, shingles, esophageal. Medical Records Attestation: I reviewed the patient's medical records. Home Medications Current Medication List: was personally reviewed by me Laboratory Data Attestation: I reviewed the patient's lab results. Result diagrams: 08/25/19 18:35 08/25/19 18:35 Lab Results 08/25/19 08/25/19 Range/Units 18:35 18:35 WBC 10.85 H (4.8-10.8) K/uL RBC 4.51 (4.2-5.4) M/uL Hgb 13.9 (12.0-16.0) g/dL Hct 40.6 (37-47) % MCV 90.0 (80-100) fL MCH 30.8 (25-34) pg MCHC 34.2 (32-36) g/dL RDW Std Deviation 43.7 (36.4-46.3) fL RDW Coeff of [place] 13.3 (11.5-14.5) % Plt Count 249 (130-400) K/uL MPV 11.6 H (7.4-10.4) fL Immature Gran % (Auto) 0.3 % Neut % (Auto) 57.2 % Lymph % (Auto) 32.5 % [place] % (Auto) 7.8 % Eos % (Auto) 1.7 % Baso % (Auto) 0.5 % Immature Gran # (Auto) 0.03 H (0.00-0.02) K/uL Neut # (Auto) 6.21 (1.4-6.5) K/uL Lymph # (Auto) 3.53 H (1.2-3.4) K/uL [place] # (Auto) 0.85 H (0.11-0.59) K/uL Eos # (Auto) 0.18 (0-0.5) K/uL Baso # (Auto) 0.05 (0-0.2) K/uL Sodium 137 (136-145) mmol/L Potassium 3.5 (3.5-5.1) mmol/L Chloride 104 (98-107) mmol/L Carbon Dioxide 25 (21-32) mmol/L Anion Gap 8.0 (3-11) BUN 15 (7-18) mg/dl Creatinine 0.93 (0.6-1.2) mg/dl Est Cr Clr Drug Dosing 54.5 ml/min Est GFR ( Amer) 73.7 Est GFR (Non-Af Amer) 63.6 BUN/Creatinine Ratio 16.6 (10-20) Glucose 189 H (70-99) mg/dl Calcium 8.7 (8.5-10.1) mg/dl Phosphorus 2.8 (2.5-4.9) mg/dl Magnesium 1.2 L (1.8-2.4) mg/dl Total Bilirubin 0.3 (0.2-1) mg/dl AST 31 (15-37) U/L ALT 49 (12-78) U/L Alkaline Phosphatase 100 (45-117) U/L Troponin I < 0.015 (0-0.045) ng/ml Total Protein 8.0 (6.4-8.2) gm/dl Albumin 4.0 (3.4-5.0) gm/dl Globulin 4.0 (2.5-4.0) gm/dl Albumin/Globulin Ratio 1.0 (0.9-2) Lipase 92 (73-393) U/L Specimen Hemolysis Imaging Data Radiologist's Impression: Radiology results as stated below per my review and the radiologist's interpretation: XR chest 1V portable CLINICAL HISTORY: Atypical chest pain COMPARISON STUDY: 06/13/2019 FINDINGS: There are postsurgical changes of a midline sternotomy. There is no failure. There is no focal pulmonary consolidation. There are no pleural effusions.[ IMPRESSION: No active disease in the chest. Electronically signed by: Desmond Ortega M.D. 08/25/2019 6:[address] ANGIOGRAM OF THE CHEST CLINICAL HISTORY: Atypical chest pain COMPARISON STUDY: Chest x-ray dated 08/25/2019 TECHNIQUE: Following the IV administration of 116 mL of [id number]-320, CT angiogram of the thorax was performed from the thoracic inlet to the lung bases utilizing the pulmonary embolus protocol. Images are reviewed in the axial, sagittal, and coronal planes. IV contrast was administered without complication. MIP imaging was performed. A dose lowering technique was utilized adhering to the principles of ALARA. CT DOSE: 310.59 mGy.cm FINDINGS: No pathologically enlarged axillary mediastinal or hilar lymph nodes were visualized. There was no evidence of thoracic aortic dilatation. There were no pulmonary artery filling defects to indicate acute pulmonary embolism. No pleural effusions are visualized. There are right basilar atelectatic changes. There are no airspace opacities to indicate pneumonia. There are postsurgical changes of midline sternotomy. There are bilateral breast implants. There is probable hepatic steatosis. IMPRESSION: 1. No acute intrathoracic findings 2. No evidence of acute pulmonary embolism 3. There are no airspace opacities to indicate pneumonia. Electronically signed by: Desmond Ortega M.D. 08/25/2019 8:43 PM ECG Data Attestation: I personally reviewed and interpreted this ECG as follows: Indication: chest pain Rate (beats per minute): 87 Rhythm: normal sinus Findings: + other (poor R wave progression, normal axis); no ST depression, no ST elevation and no acute ischemic change Comparison ECG Date: from (06/13/2019) Change: no significant change Blood Pressure Blood Pressure Findings: Elevated blood pressure Blood Pressure Disposition: further management by hospitalist JERE Gutierrez The patient is a pleasant 68 y/o woman with a pmhx of CAD s/p CABG, who presents to the emergency department with left sided CP over the past 4 days which occurs at rest but is associated with radiation to her back and numbness of her left arm per HPI. Of note, while patient reports her pain has been happening only at rest and denies any preceding exertional component she reports she did feel pain when walking but from triage. However, upon evaluation denies any symptoms. On arrival the patient is in NAD, AFVSS. EKG with poor R wave progression but similar to prior and without overt evidence of acute ischemia. CXR negative for acute process. WBC 10.8, nonspecific. H/H and platelets wnl. Chemistry without acidosis. Magnesium 1.2 with repletion provided. LFTs and electrolytes unremarkable. Troponin negative. Given patient's report of radiation to back CTA was performed and was negative for acute findings. Heart score, 5, moderate risk. Reasonable to admit for further cardiac evaluation. Case was discussed with Dr. Rolon, [facility] hospitalist, who will evaluate the patient for admission. Impression & Plan Atypical chest pain, Shortness of breath, Hypomagnesemia, History of coronary artery bypass graft Discharge Plan Visit Data *Final* Discharge Date/Time: 08/25/19 22:49 Chief Complaint: Chest Pain Stated Complaint: CHEST PAIN,LEFT ARM ACHE ED Provider: Jhonathan Ignacio ED Midlevel Provider: Magaly Horan Discharge Problem: Atypical chest pain, Shortness of breath, Hypomagnesemia, History of coronary artery bypass graft Patient Disposition: Admitted As Inpatient Discharge Instructions Interventions: ED Discharge Assessment Last Done: 08/25/19 22:49 The scribe's documentation has been prepared under my direction and personally reviewed by me in its entirety. I confirm that the note above accurately reflects all work, treatment, procedures, and medical decision making performed by me.
[2019-08-25] MEDS ORDERED: NITROGLYCERIN SL 0.4 MG/TAB TAB SL PRN (23:12)
[2019-08-25] MEDS ORDERED: ACETAMINOPHEN 325 MG TAB PO PRN (23:12)
[2019-08-25] MEDS ORDERED: ONDANSETRON INJ 2 MG/ML 2 ML VIAL IV PRN (23:12)
[2019-08-25] MEDS ORDERED: GLUCOSE 40% GEL 15 GM TUBE PO PRN (23:30)
[2019-08-25] MEDS ORDERED: CARBOHYDRATES FOR HYPOGLYCEMIA PO PRN (23:30)
[2019-08-25] MEDS ORDERED: DEXTROSE 50% 50 ML SYRINGE IV PRN (23:30)
[2019-08-25] MEDS ORDERED: GLUCOSE 10 TABS/TUBE PO PRN (23:30)
[2019-08-25] MEDS ORDERED: GLUCAGON FOR INJ 1 MG VIAL IM PRN (23:30)
[2019-08-25] MEDS ORDERED: INSULIN GLARGINE SOLOSTAR 100 UNITS/ML 3 ML PEN SC ONE (23:45)
--- NOTE | 2019-08-26 00:52 | History and Physical Report ---
DATE OF ADMISSION: 08/25/2019 CHIEF COMPLAINT: Chest pain. HISTORY OF PRESENT ILLNESS: This is a 68-year-old female with past medical history significant for CAD status post stent, status post CABG, history of breast cancer status post bilateral mastectomy and status post chemo 5 years ago, history of diabetes, hypertension, hyperlipidemia, history of paroxysmal supraventricular tachycardia, GERD, gallbladder sludge, fatty liver, obesity, anxiety, Plavix resistance, presents with chest pain. The patient states in the last 4 days she is having on and off chest pains that come on their own and go on their own, not associated with any activity and they generally comes at rest, but today the pain was more severe. It was about 9/10 in severity in the center of the chest, radiating to the back associated with some nausea and shortness of breath. Today, she took nitro 2 times. The pain eased a little bit, but it came back again. It happened 3 times in a row, so she came to the ER. Currently, the pain is almost resolved and she is asymptomatic. Yesterday morning, she had a severe headache, but it is okay now. She has cataracts and blurred visions and supposed to see eye doctor next week. No earaches. She always has runny nose since her chemo. No sore throat, no cough, no fever, no chills. Currently, no nausea, no abdominal pain. Normal bowel and bladder movements. No hematuria or burning micturition. No diarrhea or constipation, nor black stools or blood in the stools. No swelling in the legs, no rash. Lately, she is not climbing stairs, but in the house when she is ambulating, she has no chest pains. She lives in apartment, she use elevators to climb up to go to her apartment. Currently, resting comfortably and hemodynamically stable. ALLERGIES: CEFUROXIME. PAST MEDICAL HISTORY: As mentioned above. PAST SURGICAL HISTORY: Excision of the right upper arm femur, bilateral mastectomy in June 2015, breast reconstruction surgery, cardiac catheterization and stent to RCA in June 2016, colonoscopy, CABG in January 2018, excision of excess skin including lipectomy, abdominal infraumbilical panniculectomy, exploration of abdomen, modified right mastectomy and simple left mastectomy, removal of tunneled central venous device, replacement of tissue expanders, total abdominal hysterectomy with removal of tubes, ultrasound-guided biopsy of the bilateral breasts. MEDICATIONS: The patient is on Lantus 36 units under skin bedtime, Lexapro 10 mg p.o. daily, semaglutide 0.5 mg under skin once a week, atorvastatin 80 mg p.o. daily, Imdur 60 mg p.o. daily, metformin 1000 mg p.o. b.i.d., Toprol-XL 100 mg p.o. daily, Protonix 40 mg p.o. daily, nitroglycerin 0.4 mg sublingual p.r.n., Tylenol 500-1000 mg p.o. t.i.d. p.r.n., aspirin 81 mg p.o. daily. FAMILY HISTORY: Significant for father who had Hodgkin's cancer. Mother had breast and colon cancer. Brother from lung disease. Uncle has diabetes. Paternal grandfather has heart disorder. SOCIAL HISTORY: . Former smoker, quit in 1989. Alcohol rarely. No drug use. REVIEW OF SYMPTOMS: As per HPI. Rest of review of systems is negative. PHYSICAL EXAMINATION: GENERAL: The patient is of moderate built, not in acute distress. VITAL SIGNS: Temperature 36.4, pulse 90, respiratory rate 18, blood pressure 135/87, oxygen 95% room air. HEENT: No pallor, no icterus. Pupils equal, round, and reactive to light. NECK: No JVD, no neck masses, no carotid bruits. CARDIOVASCULAR: S1, S2 heard, regular rate and rhythm, no murmur, no gallop. RESPIRATORY SYSTEM: Normal AP diameter. No accessory muscle use. No wheezing, no crackles. ABDOMEN: Soft, bowel sounds present. Nontender. No distention. CENTRAL NERVOUS SYSTEM: Cranial nerves II-XII grossly intact. Nonfocal. EXTREMITIES: No edema, no erythema. LABORATORY DATA: WBC 10.8, hemoglobin 13.9, hematocrit 40.6, platelets 249. Sodium 137, potassium 3.5, chloride 104, bicarbonate 25, BUN 15, creatinine 0.9, serum glucose 189, calcium 8.7, phosphorus 2.8, magnesium 1.2, total bilirubin 0.3, AST 31, ALT 49, alkaline phosphatase 100. Troponin I less than 0.015. Lipase 92. IMAGING: CTA of the chest, no acute intrathoracic findings, no evidence of acute pulmonary embolism. There are no airspace opacities to indicate pneumonia. Chest x-ray: No acute disease in the chest. EKG: Normal sinus rhythm with rate of 87, no acute ST changes seen. ASSESSMENT AND PLAN: This is a 68-year-old female who presents with chest pain. 1. Chest pain, history of coronary artery disease status post stent and status post coronary artery bypass graft. Having chest pain in the last 4 days, but today got severe, retrosternal, radiated to the back, currently symptomatic. Initial troponin and EKG unremarkable. We will admit to tele floor. Serial cardiac enzymes and echocardiogram. N.p.o. after midnight. Consult cardiology in a.m. for further recommendations. 2. Hypomagnesemia. Magnesium 1.2. Previous levels were also low, possibly from history of chemo. We will replace magnesium. Follow the labs in a.m. May need magnesium supplement at discharge and follow up with PCP. 3. History of coronary artery disease, status post stent and coronary artery bypass graft. Continue home medication of aspirin, Imdur, Toprol-XL and statin. 4. History of breast cancer, bilateral mastectomy and chemo 5 years ago. 5. Hypertension. Continue her Imdur, Toprol-XL. We will monitor the blood pressure. 6. History of diabetes. Since she is n.p.o. after midnight today, we will give Lantus 15 units and insulin sliding scale. Hold her semaglutide and metformin. If she stayed in the hospital tomorrow,and still npo to cut the dose of Lantus. 7. Gastroesophageal reflux disease. Continue PPI. 8. Deep vein thrombosis prophylaxis, sequential compression devices for now. 9. Disposition: Admit to tele floor. Expect discharge home and follow with family doctor. Level 1 full code. MTDD
[2019-08-26 05:57] LABS: Basophils # (auto) 0.06 K/uL (0-0.2); Basophils % (auto) 0.9 %; Eosinophils # (auto) 0.19 K/uL (0-0.5); Eosinophils % (auto) 2.7 %; Hematocrit (blood only) 38.7 % (37-47); Immature Granulocytes # (auto) 0.01 K/uL (0.00-0.02); Immature Granulocytes % (auto) 0.1 %; Lymphocytes # (auto) 2.53 K/uL (1.2-3.4); Lymphocytes % (auto) 36.5 %; Mean Corpuscular Hemoglobin 30.2 pg (25-34); Mean Corpuscular Hgb Conc 33.6 g/dL (32-36); Mean Platelet Volume 11.5 fL (7.4-10.4); Monocytes # (auto) 0.74 K/uL (0.11-0.59); Monocytes % (auto) 10.7 %; Neutrophils # (auto) 3.41 K/uL (1.4-6.5); Neutrophils % (auto) 49.1 %; Platelet Count 227 K/uL (130-400); RDW Coefficient of Variation 13.4 % (11.5-14.5); RDW Standard Deviation 43.9 fL (36.4-46.3); White Blood Count 6.94 K/uL (4.8-10.8)
[2019-08-26 06:26] LABS: Estimated Average Glucose 209 mg/dl; Hemoglobin A1C 8.9 % (4.5-5.6)
[2019-08-26 06:32] LABS: BUN Creatinine Ratio 15.1 (10-20); Calcium 8.6 mg/dl (8.5-10.1); Creatinine Clr Calc Pharmacy 73.7 ml/min; Est GFR (African American) 104.9; Est GFR (Non-African American) 90.5; Magnesium 1.8 mg/dl (1.8-2.4); Potassium 3.4 mmol/L (3.5-5.1)
[2019-08-26 08:57] VITALS: O2SAT 96
[2019-08-26] MEDS ORDERED: ISOSORBIDE MONO EXTENDED REL 60 MG TABCR PO SCH (09:00)
[2019-08-26] MEDS ORDERED: PANTOprazole 40 MG TAB PO SCH (09:00)
--- NOTE | 2019-08-26 10:04 | Cardiology Consultation ---
Date of Consultation August 26, 2019 Assessment & Plan (1) Atypical chest pain: (2) History of coronary artery bypass graft: (3) Dyslipidemia: 68 old female admitted with atypical chest discomfort. Cardiac enzymes are negative with normal ECG. Results of resting 2D transthoracic echocard iogram pending at this time. Recommend exercise stress echocardiography pending review of resting study. Continue current cardiovascular medications as previously ordered. Further recommendations pending results of stress testing. History of Present Illness Reason for Consultation: Chest pain Requesting Physician: Dr. Kahn Attending Physician: Amparo Kahn MD History of Present Illness 68-year-old female presented to the emergency department with 5-day history of intermittent chest discomfort. She describes left-sided heaviness and tightness at rest which also develops into a sharp and stabbing pain radiating to her back. The discomfort typically lasts 1 to 2 minutes up to 10 minutes in duration. The discomfort has been sporadic over the past 5 days. Pain has awakened her from sleep on occasion. Patient contacted the triage nurse who recommended ER evaluation. She was seen in the ER and admitted to the telemetry unit. Cardiac enzymes are negative x2 set. Her ECG is normal. Resting 2D transthoracic echocardiogram pending at this time. Cardiac history significant for recurrent angina with multiple right coronary artery interventions ultimately leading to single-vessel bypass with a saphenous vein graft to the right coronary artery. Due to recurrent chest pain patient underwent repeat cardiac catheterization with coronary angiography and bypass angiography in March 2019. Bypass graft found to be widely patent per catheterization. Allergies Allergy/AdvReac Type Severity Reaction Status Date / Time cefuroxime Allergy Intermediate HIVES Verified 08/25/19 19:03 Home Medications Home Medications Medication Instructions Recorded Confirmed Type acetaminophen 500 - 1,000 mg PO TID PRN 06/13/19 08/25/19 History aspirin [Aspirin Low Dose] 81 mg PO HS 06/13/19 08/25/19 History atorvastatin 80 mg PO HS 06/13/19 08/25/19 History insulin glargine [Lantus Solostar 36 unit SUBCUT HS 06/13/19 08/25/19 History U-100 Insulin] isosorbide mononitrate 60 mg PO QAM 06/13/19 08/25/19 History metformin 1,000 mg PO BID 06/13/19 08/25/19 History metoprolol succinate 100 mg PO HS 06/13/19 08/25/19 History pantoprazole 40 mg PO QAM 06/13/19 08/25/19 History escitalopram oxalate [Lexapro] 10 mg PO HS 07/18/19 08/25/19 History semaglutide [Ozempic] 0.5 mg SUBCUT WK 08/25/19 08/25/19 History Patient History Medical History GERD (gastroesophageal reflux disease) (Chronic) Anxiety (Chronic) DM type 2 (diabetes mellitus, type 2) (Chronic) HTN (hypertension) (Chronic) Dyslipidemia (Chronic) Breast cancer (Chronic) RT BREAST (SURGERY WITH CHEMO AND RADIATION) CAD (coronary artery disease) (Chronic) "06/2016 - abnormal stress electronic tester to cardiac cath on 07/09/16 that showed 90% ostial RCA stenosis s/p stenting" Depression Myocardial Infarction JANUARY 2018 Peripheral neuropathy Temporomandibular joint disorder Surgical History S/P CABG x 21 JANUARY 2018 [facility] History of bilateral mastectomy (Chronic) WITH RECONSTRUCTION History of appendectomy History of dilatation and curettage History of heart artery stent 3 STENTS PLACED TOTAL IN THE PAST (2 YEARS AGO) FOLLOWS WITH CARDIOLOGYRAMON History of tonsillectomy History of total hysterectomy History of vascular access device PORT INSERTION AND REMOVAL Family History Uncle Family history of diabetes mellitus Social History Preferred Language: Bulgarian Communication Ability: 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 Overweight. HEENT: Normocephalic. Atraumatic. Conjunctiva pink, no scleral icterus. Neck: No carotid bruits, the carotid upstrokes are brisk. No JVD. No HJR Heart: Regular normal S-1 and S-2 no S-3 or S-4 gallop. No murmurs or rub appreciated. PMI is not displaced. No RV heave. Lungs: Clear bilateral without rales , rhonchi, or wheeze. Abdomen: Normal bowel sounds. Soft. Nontender. No masses or organomegaly. No abdominal bruits. Extremities: No clubbing, cyanosis, or edema. Pulses: radial=2/4, Dorsalis pedis =2/4, posterior tibial=2/4. Neuro: Cranial nerves grossly intact. No focal motor deficit. Results & Data Vital Signs (Past 12 Hours) Vital Signs Temp Pulse Pulse Resp BP Pulse Ox 08/26/19 07:51 36.8 C 76 18 141/80 H 96 08/26/19 04:00 36.5 C 80 20 129/67 94 08/25/19 23:19 36.4 C L 78 20 144/81 H 96 08/25/19 22:49 83 Laboratory Results Laboratory Results - last 24 hr 08/25/19 08/25/19 08/25/19 18:35 18:35 23:05 WBC 10.85 H RBC 4.51 Hgb 13.9 Hct 40.6 MCV 90.0 MCH 30.8 MCHC 34.2 RDW Std Deviation 43.7 RDW Coeff of [place] 13.3 Plt Count 249 MPV 11.6 H Immature Gran % (Auto) 0.3 Neut % (Auto) 57.2 Lymph % (Auto) 32.5 [place] % (Auto) 7.8 Eos % (Auto) 1.7 Baso % (Auto) 0.5 Immature Gran # (Auto) 0.03 H Neut # (Auto) 6.21 Lymph # (Auto) 3.53 H [place] # (Auto) 0.85 H Eos # (Auto) 0.18 Baso # (Auto) 0.05 Sodium 137 Potassium 3.5 Chloride 104 Carbon Dioxide 25 Anion Gap 8.0 BUN 15 Creatinine 0.93 Est Cr Clr Drug Dosing 54.5 Est GFR ( Amer) 73.7 Est GFR (Non-Af Amer) 63.6 BUN/Creatinine Ratio 16.6 Glucose 189 H POC Glucose Estimat Average Glucose Hemoglobin A1c Calcium 8.7 Phosphorus 2.8 Magnesium 1.2 L Total Bilirubin 0.3 AST 31 ALT 49 Alkaline Phosphatase 100 Troponin I < 0.015 Total Protein 8.0 Albumin 4.0 Globulin 4.0 Albumin/Globulin Ratio 1.0 Lipase 92 Specimen Hemolysis Nasal Screen MRSA (PCR) Negative Hepatitis C Ab Screen 08/25/19 08/26/19 08/26/19 23:34 00:38 05:21 WBC 6.94 RBC 4.30 Hgb 13.0 Hct 38.7 MCV 90.0 MCH 30.2 MCHC 33.6 RDW Std Deviation 43.9 RDW Coeff of [place] 13.4 Plt Count 227 MPV 11.5 H Immature Gran % (Auto) 0.1 Neut % (Auto) 49.1 Lymph % (Auto) 36.5 [place] % (Auto) 10.7 Eos % (Auto) 2.7 Baso % (Auto) 0.9 Immature Gran # (Auto) 0.01 Neut # (Auto) 3.41 Lymph # (Auto) 2.53 [place] # (Auto) 0.74 H Eos # (Auto) 0.19 Baso # (Auto) 0.06 Sodium Potassium Chloride Carbon Dioxide Anion Gap BUN Creatinine Est Cr Clr Drug Dosing Est GFR ( Amer) Est GFR (Non-Af Amer) BUN/Creatinine Ratio Glucose POC Glucose 161 H Estimat Average Glucose Hemoglobin A1c Calcium Phosphorus Magnesium Total Bilirubin AST ALT Alkaline Phosphatase Troponin I < 0.015 Total Protein Albumin Globulin Albumin/Globulin Ratio Lipase Specimen Hemolysis Nasal Screen MRSA (PCR) Hepatitis C Ab Screen 08/26/19 08/26/19 08/26/19 05:21 05:21 05:21 WBC RBC Hgb Hct MCV MCH MCHC RDW Std Deviation RDW Coeff of [place] Plt Count MPV Immature Gran % (Auto) Neut % (Auto) Lymph % (Auto) [place] % (Auto) Eos % (Auto) Baso % (Auto) Immature Gran # (Auto) Neut # (Auto) Lymph # (Auto) [place] # (Auto) Eos # (Auto) Baso # (Auto) Sodium 141 Potassium 3.4 L Chloride 108 H Carbon Dioxide 24 Anion Gap 9.0 BUN 10 D Creatinine 0.68 Est Cr Clr Drug Dosing 73.7 Est GFR ( Amer) 104.9 Est GFR (Non-Af Amer) 90.5 BUN/Creatinine Ratio 15.1 Glucose 125 H POC Glucose Estimat Average Glucose 209 Hemoglobin A1c 8.9 H Calcium 8.6 Phosphorus Magnesium 1.8 Total Bilirubin AST ALT Alkaline Phosphatase Troponin I < 0.015 Total Protein Albumin Globulin Albumin/Globulin Ratio Lipase Specimen Hemolysis Nasal Screen MRSA (PCR) Hepatitis C Ab Screen 08/26/19 08/26/19 05:21 07:56 WBC RBC Hgb Hct MCV MCH MCHC RDW Std Deviation RDW Coeff of [place] Plt Count MPV Immature Gran % (Auto) Neut % (Auto) Lymph % (Auto) [place] % (Auto) Eos % (Auto) Baso % (Auto) Immature Gran # (Auto) Neut # (Auto) Lymph # (Auto) [place] # (Auto) Eos # (Auto) Baso # (Auto) Sodium Potassium Chloride Carbon Dioxide Anion Gap BUN Creatinine Est Cr Clr Drug Dosing Est GFR ( Amer) Est GFR (Non-Af Amer) BUN/Creatinine Ratio Glucose POC Glucose 122 H Estimat Average Glucose Hemoglobin A1c Calcium Phosphorus Magnesium Total Bilirubin AST ALT Alkaline Phosphatase Troponin I Total Protein Albumin Globulin Albumin/Globulin Ratio Lipase Specimen Hemolysis Nasal Screen MRSA (PCR) Hepatitis C Ab Screen Neg
[2019-08-26] MEDS: INSULIN ASPART 100 UNITS/ML 3 ML PEN SC SCH ×3 (10:43→16:53)
[2019-08-26 12:04] VITALS: PULSE 83; TEMP 98.4
[2019-08-26] MEDS ORDERED: POTASSIUM CHLORIDE 20 MEQ TABCR PO STA (13:13)
[2019-08-26] MEDS ORDERED: METOPROLOL SUCC 50MG EXT REL TAB PO SCH ×2 (15:15→21:00)
--- NOTE | 2019-08-26 17:03 | Hospitalist Progress Note ---
Date of Service August 26, 2019 Assessment & Plan (1) Chest pain: Unstable angina in pt with CAD Presented with intermittent chest pain off and off for past for 5 days Associated with episode of shortness of breath No further episode of chest pain since admission Resting echo shows no wall motion abnormality normal LV function Patient input from cardiology Cardiac stress test ordered, shows no stress-induced ischemia Beta-karey dose increased: Toprol-XL to 125 mg daily to prevent episodes of PVC Able to be discharged home today History of coronary disease/status post CABG Stable from cardiac standpoint No evidence of acute coronary event, negative stress test done Continue outpatient cardiac meds adjustment of beta-karey as outlined above Patient will continue to follow-up with cardiology Dr. sterling in clinic Disposition: Stable to be discharged home today Subjective No complaint of chest pain or shortness of breath no dizzy spell or hypoxia Status post cardiac stress test today shows no evidence of stress-induced ischemia Patient input from cardiology Able PVCs noted on telemetry possible causing the symptomatic presentation The karey dose increased Will be discharged home today Review of Systems Review of Systems: All systems reviewed & are unremarkable except as noted in HPI & below Physical Exam Constitutional: WD/WN, vitals as above no acute distress Eyes: PERRL, conjunctivae normal, anicteric sclerae ENMT: external ear and nose normal, oropharynx normal Neck: trachea midline, no thyromegaly Respiratory: normal respiratory effort, lungs clear to auscultation Cardiovascular: RRR, no murmur, no edema Gastrointestinal (Abdomen): normal bowel sounds, soft, nontender, no hepatosplenomegaly Musculoskeletal: no cyanosis or clubbing, extremities motor strength 5/5 Skin: no rashes, warm and dry Neurologic: PERRL, EOMI, accommodation nl, no face palsy, no dysarthria Psychiatric: A+Ox3, euthymic affect Results & Data Vital Signs (Past 12 Hours) Vital Signs Temp Pulse Resp BP Pulse Ox 08/26/19 12:03 36.9 C 83 16 160/88 H 96 08/26/19 07:51 36.8 C 76 18 141/80 H 96
[2019-08-26 17:37] VITALS: BP 124/78
[2019-08-26] MEDS ORDERED: INSULIN GLARGINE SOLOSTAR 100 UNITS/ML 3 ML PEN SQ SCH (21:00)
[2019-08-26] MEDS ORDERED: ATORVASTATIN 40 MG TAB PO SCH (21:00)
[2019-08-26] MEDS ORDERED: ASPIRIN 81 MG ECTAB PO SCH (21:00)
[2019-08-26] MEDS ORDERED: ESCITALOPRAM OXALATE 10 MG TAB PO SCH (21:00)
--- NOTE | 2019-08-27 11:38 | Discharge Summary ---
Date of Service August 27, 2019 Admission HPI Per Admitting Provider DICTATED BY: Zachary Rolon MD DATE OF ADMISSION: 08/25/2019 CHIEF COMPLAINT: Chest pain. HISTORY OF PRESENT ILLNESS: This is a 68-year-old female with past medical history significant for CAD status post stent, status post CABG, history of breast cancer status post bilateral mastectomy and status post chemo 5 years ago, history of diabetes, hypertension, hyperlipidemia, history of paroxysmal supraventricular tachycardia, GERD, gallbladder sludge, fatty liver, obesity, anxiety, Plavix resistance, presents with chest pain. The patient states in the last 4 days she is having on and off chest pains that come on their own and go on their own, not associated with any activity and they generally comes at rest, but today the pain was more severe. It was about 9/10 in severity in the center of the chest, radiating to the back associated with some nausea and shortness of breath. Today, she took nitro 2 times. The pain eased a little bit, but it came back again. It happened 3 times in a row, so she came to the ER. Currently, the pain is almost resolved and she is asymptomatic. Yesterday morning, she had a severe headache, but it is okay now. She has cataracts and blurred visions and supposed to see eye doctor next week. No earaches. She always has runny nose since her chemo. No sore throat, no cough, no fever, no chills. Currently, no nausea, no abdominal pain. Normal bowel and bladder movements. No hematuria or burning micturition. No diarrhea or constipation, nor black stools or blood in the stools. No swelling in the legs, no rash. Lately, she is not climbing stairs, but in the house when she is ambulating, she has no chest pains. She lives in apartment, she use elevators to climb up to go to her apartment. Currently, resting comfortably and hemodynamically stable. Principal Diagnosis Atypical chest pain, no evidence of acute coronary event, cardiac stress test negative Discharge Exam Constitutional WD/WN, vitals as above no acute distress Eyes PERRL, conjunctivae normal, anicteric sclerae ENMT external ear and nose normal, oropharynx normal Neck trachea midline, no thyromegaly Respiratory normal respiratory effort, lungs clear to auscultation Cardiovascular RRR, no murmur, no edema Gastrointestinal (Abdomen) normal bowel sounds, soft, nontender, no hepatosplenomegaly Musculoskeletal no cyanosis or clubbing, extremities motor strength 5/5 Skin no rashes, warm and dry Neurologic PERRL, EOMI, accommodation nl, no face palsy, no dysarthria Psychiatric A+Ox3, euthymic affect Discharge Data Allergies Allergy/AdvReac Type Severity Reaction Status Date / Time cefuroxime Allergy Intermediate HIVES Verified 08/25/19 19:03 Consultations 08/25/19 19:59 ED Decision to Admit Stat 08/26/19 08:00 Consult Cardiology Routine Ordered Studies 08/25/19 19:51 CT angio chest PE protocol Stat Hospital Course (1) Chest pain: Unstable angina in pt with CAD Presented with intermittent chest pain off and off for past for 5 days Associated with episode of shortness of breath No further episode of chest pain since admission Resting echo shows no wall motion abnormality normal LV function Patient input from cardiology Cardiac stress test ordered, shows no stress-induced ischemia Beta-karey dose increased: Toprol-XL to 125 mg daily to prevent episodes of PVC Able to be discharged home today History of coronary disease/status post CABG Stable from cardiac standpoint No evidence of acute coronary event, negative stress test done Continue outpatient cardiac meds adjustment of beta-karey as outlined above Patient will continue to follow-up with cardiology Dr. sterling in clinic Disposition: Stable to be discharged home today Total Time Total Time Spent Total Time Spent (In Minutes): Approximately 35 minutes Total Time Includes: Examination of the Patient, Discharge Planning and Medication Reconciliation Discharge Plan Discharge Items Patient Disposition: Home - Self-Care Reason For Visit: CHEST PAIN Discharge Diagnosis: Atypical chest pain, no evidence of acute coronary event, cardiac stress test negative Activity: Resume your previous activity Non-emergency contact: Primary Care Provider Call non-emergency contact if: you have any medication questions Follow-up/Referrals: Kane Soriano MD [Primary Care Provider] - Diet: Carb Consistent or DM2 and Heart Healthy Addtl Attending Provider Instructions: Hospital follow-up with family physician Dr. Soriano in 1 week, Office will call with appointment Pending Studies at Discharge: No Stand-Alone Forms: My [facility] Medications and DC Order Prescriptions: Continued escitalopram oxalate [Lexapro] 10 mg Tablet 10 mg PO HS RF: 0 atorvastatin 80 mg Tablet 80 mg PO HS RF: 0 aspirin [Aspirin Low Dose] 81 mg Tablet,Delayed Release (Dr/Ec) 81 mg PO HS RF: 0 acetaminophen 500 mg Tablet 500 - 1,000 mg PO TID PRN (Reason: Pain) RF: 0 isosorbide mononitrate 60 mg Tablet Extended Release 24 Hr 60 mg PO QAM RF: 0 pantoprazole 40 mg Tablet,Delayed Release (Dr/Ec) 40 mg PO QAM RF: 0 metformin 1,000 mg tablet extended release 24hr 1,000 mg PO BID RF: 0 Lantus Solostar U-100 Insulin 100 unit/mL (3 mL) insulin pen 36 unit subcut HS RF: 0 Ozempic 0.25 mg or 0.5 mg(2 mg/1.5 mL) Pen Injector 0.5 mg SUBCUT WK RF: 0 Discontinued metoprolol succinate 100 mg Tablet Extended Release 24 Hr 100 mg PO HS RF: 0 Discharge Orders: Discharge Order (Routine); Ordered 08/26/19 Ordered By: Amparo Griffin/Other Patient Handouts: Diabetes Ultrasound Technologist Sonographer Complications, Diabetes Resources, Diabetes Type 2 Coping, Diabetes Healthy Meals, Diabetes Carbs, Diabetes Exercise Benefits, Diabetes Exercise Get Started, Diabetes Activity Tips, Diabetes Living Life, Diabetes Manage A1C Test Admission Data Admit Date/Time: 08/25/19 21:42 Attending Provider: Amparo Kahn Admit Provider: Zachary Rolon Primary Care Provider: Kane Soriano Other Providers: Zachary Rolon ; Michelet Azul ; Hiro Woods ; Neo Waters ; Leo Zamora ; ElizabethRyan jefferson ; Jermaine Morgan ; Diane Bueno ; Mayelin Mustafa Other Interventions: Discharge Summary Assessment (RN) Last Done: 08/26/19 17:29 DC Date/Time DO NOT enter until pt leaves facility: 08/26/19 18:24
== END 2019-08-26 18:24 | disposition home or self-care (01) | DRG 303 ==
LOC: ED 18:02 → 1E 21:42
DX: E11.51 Type 2 diabetes mellitus with diabetic peripheral angiopathy without gangrene; K76.0 Fatty (change of) liver, not elsewhere classified; E66.9 Obesity, unspecified; Z83.3 Family history of diabetes mellitus; K21.9 Gastro-esophageal reflux disease without esophagitis; Z85.3 Personal history of malignant neoplasm of breast; E83.42 Hypomagnesemia; Z79.4 Long term (current) use of insulin; I25.2 Old myocardial infarction; Z95.1 Presence of aortocoronary bypass graft; Z68.34 Body mass index [BMI] 34.0-34.9, adult; Z95.5 Presence of coronary angioplasty implant and graft; E11.40 Type 2 diabetes mellitus with diabetic neuropathy, unspecified; Z80.7 Family history of other malignant neoplasms of lymphoid, hematopoietic and related tissues; Z88.1 Allergy status to other antibiotic agents; I25.110 Atherosclerotic heart disease of native coronary artery with unstable angina pectoris; Z90.13 Acquired absence of bilateral breasts and nipples; Z87.891 Personal history of nicotine dependence; Z79.82 Long term (current) use of aspirin

== ENCOUNTER 2020-08-31 13:12 | Inpatient (IN) ==
[2020-08-31 14:29] LABS: Appearance Urine Clear (Clear); Bilirubin Urine Negative (Negative); Blood Urine Negative (Negative); Color Urine Yellow; Glucose Urine UA 2+ (Negative); Ketones Urine Negative (Negative); Leukocyte Esterase Urine Negative (Negative); Nitrite Urine Negative (Negative); Protein Urine Negative (Negative); Urobilinogen Urine Negative (Negative)
[2020-08-31 14:37] LABS: Amphetamines+Metham, Urine Neg (Neg); Barbiturates, Urine Neg (Neg); Benzodiazepine, Urine Neg (Neg); Cocaine, Urine Neg (Neg); MDMA (Ecstacy), Urine Neg (Neg); Methadone, Urine Neg (Neg); Opiate, Urine Neg (Neg); Phencyclidine, Urine Neg (Neg)
[2020-08-31 14:39] LABS: Basophils # (auto) 0.04 K/uL (0-0.2); Basophils % (auto) 0.5 %; Eosinophils # (auto) 0.16 K/uL (0-0.5); Eosinophils % (auto) 2.1 %; Hematocrit (blood only) 42.8 % (37-47); Hemoglobin 14.2 g/dL (12.0-16.0); Immature Granulocytes # (auto) 0.02 K/uL (0.00-0.02); Immature Granulocytes % (auto) 0.3 %; Lymphocytes # (auto) 2.76 K/uL (1.2-3.4); Lymphocytes % (auto) 35.7 %; Mean Corpuscular Hemoglobin 30.3 pg (25-34); Mean Corpuscular Hgb Conc 33.2 g/dL (32-36); Mean Corpuscular Volume 91.3 fL (80-100); Mean Platelet Volume 11.1 fL (7.4-10.4); Monocytes # (auto) 0.65 K/uL (0.11-0.59); Monocytes % (auto) 8.4 %; Platelet Count 277 K/uL (130-400); RDW Coefficient of Variation 13.4 % (11.5-14.5); RDW Standard Deviation 44.3 fL (36.4-46.3); Red Blood Count 4.69 M/uL (4.2-5.4); White Blood Count 7.73 K/uL (4.8-10.8)
[2020-08-31 14:59] LABS: Albumin Level 3.7 gm/dl (3.4-5.0); BUN Creatinine Ratio 13.3 (10-20); Calcium 9.4 mg/dl (8.5-10.1); Creatinine Clr Calc Pharmacy 53.4 ml/min; Est GFR (African American) 73.2; Est GFR (Non-African American) 63.1; Potassium 4.5 mmol/L (3.5-5.1)
[2020-08-31 15:05] LABS: Acetaminophen < 2 ug/ml (10-30)
[2020-08-31 15:06] LABS: Salicylate < 1.7 mg/dl (2.8-20)
[2020-08-31 15:09] LABS: Albumin Globulin Ratio 0.9 (0.9-2); Bilirubin,Total 0.4 mg/dl (0.2-1); Thyroid Stimulating Hormone 2.09 uIu/ml (0.300-4.500); Total Protein 7.7 gm/dl (6.4-8.2)
--- NOTE | 2020-08-31 15:28 | Emergency Department Note ---
History of Present Illness General Chief Complaint: Mental Health Evaluation Time Seen by Provider: 08/31/20 14:09 Source: patient Mode of arrival: ambulatory Limitations: no limitations History of Present Illness Provider complaint: suicidal ideation This is a 69-year-old female who presents to the ED with a chief complaint of feeling suicidal and depressed. She states that she feels like she was having a mental breakdown. She feels like she is not able to do anything right. She is suicidal thinking about jumping out of a window. She has been feeling this way for months. The patient has not done anything to harm herself. She denies any drug use. She denies any other issues at this time. She does report some issues with the recent of a second cousin that has exacerbated her condition recently. She also reports some problems in her apartment building. Home Medications Home Medications Medication Instructions Recorded Confirmed Type acetaminophen [Acetaminophen Extra 1,000 mg PO TID PRN 08/31/20 08/31/20 History Strength] aspirin [Aspirin Low Dose] 81 mg PO HS 08/31/20 08/31/20 History atorvastatin 80 mg PO HS 08/31/20 08/31/20 History cholecalciferol (vitamin D3) 50,000 unit PO DAILY 08/31/20 08/31/20 History cyanocobalamin (vitamin B-12) 1,000 mcg PO DAILY 08/31/20 08/31/20 History escitalopram oxalate 20 mg PO HS 08/31/20 08/31/20 History insulin glargine [Lantus Solostar 40 unit SUBCUT HS 08/31/20 08/31/20 History U-100 Insulin] isosorbide mononitrate 60 mg PO QAM 08/31/20 08/31/20 History metformin 1,000 mg PO BID 08/31/20 08/31/20 History metoprolol succinate 25 mg PO QAM 08/31/20 08/31/20 History metoprolol succinate 100 mg PO QAM 08/31/20 08/31/20 History pantoprazole 40 mg PO QAM 08/31/20 08/31/20 History semaglutide [Ozempic] 0.5 mg SUBCUT WK 08/31/20 08/31/20 History Allergies Allergy/AdvReac Type Severity Reaction Status Date / Time cefuroxime Allergy Intermediate HIVES Verified 08/31/20 14:11 Past Med/Surg History Medical History Anxiety Breast cancer RT BREAST (SURGERY WITH CHEMO AND RADIATION) CAD (coronary artery disease) "06/2016 - abnormal stress signal system testing maintainer to cardiac cath on 07/09/16 that showed 90% ostial RCA stenosis s/p stenting" Depression DM type 2 (diabetes mellitus, type 2) Dyslipidemia GERD (gastroesophageal reflux disease) HTN (hypertension) Myocardial Infarction JANUARY 2018 Peripheral neuropathy Temporomandibular joint disorder Surgical History History of appendectomy History of bilateral mastectomy WITH RECONSTRUCTION History of dilatation and curettage History of heart artery stent 3 STENTS PLACED TOTAL IN THE PAST (2 YEARS AGO) FOLLOWS WITH CARDIOLOGY>ETHAN History of right cataract surgery History of tonsillectomy History of total hysterectomy History of vascular access device PORT INSERTION AND REMOVAL S/P CABG x 21 JANUARY 2018 DANMARCELINO DANNIER Family History Uncle Family history of diabetes mellitus Social History Smoking Status: Former smoker Tobacco Type: Cigarettes Second Hand Exposure: No; Hx Alcohol Use: No Hx Substance Use: No Preferred Language: Zambian Communication Ability: Effective 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 Required: No Beliefs That Will Affect Care: None marital status: Single Current Living Situation: Alone current occupational status: retired Feels Safe at Home: Yes Assistive Devices: Glasses Review of Systems A total of 10 systems reviewed and were otherwise negative Physical Exam Vital Signs Vital Signs - 24 hr 08/31/20 13:21 08/31/20 15:21 08/31/20 17:21 Temperature 36.9 C Temperature Source Oral Pulse Rate 83 Pulse Rate [Finger] 80 92 H Pulse Rhythm Regular Pulse Strength Normal Respiratory Rate 18 16 18 Respiratory Effort / Characteristics Non-Labored Spontaneous Respiratory Depth Normal Respiratory Pattern Regular Blood Pressure 167/91 H Blood Pressure [Left Arm] 154/74 H 145/91 H Blood Pressure Mean 116 Blood Pressure Mean [Left Arm] 100 109 Blood Pressure Position Lying Pulse Oximetry 99 97 96 Oxygen Delivery Method Room Air Sepsis Recent Fever Within 48 Hours No Sepsis New/Unexplained Change in Mental Status N/A Sepsis Action Taken by Nursing No Action Required CONSTITUTIONAL/VITAL SIGNS: Reviewed / noted above. GENERAL: Non-toxic in appearance. INTEGUMENTARY: Warm, dry, and [place]. HEAD: Normocephalic. EYES: without scleral icterus or trauma. ENT/OROPHARYNX: clear and moist. LYMPHADENOPATHY/NECK: Is supple without lymphadenopathy or meningismus. RESPIRATORY: Lungs clear and equal. CARDIOVASCULAR: Regular rate and rhythm. GI/ABDOMEN: Soft and nontender. No organomegaly or pulsatile mass. No rebound or guarding. Normal bowel sounds. EXTREMITIES: Warm and well perfused. BACK: No CVA tenderness. NEUROLOGICAL: Intact without focal deficits. PSYCHIATRIC: Depressed and suicidal affect. MUSCULOSKELETAL: Normally developed with good muscle tone. TRIAGE NURSING DOCUMENTATION REVIEWED. Medical Decision Making Differential Diagnosis Differential includes toxic ingestions, self-mutilation, suicidal ideation, suicide attempt, depression. Medical Records Attestation: I reviewed the patient's medical records. Home Medications Current Medication List: was personally reviewed by me Laboratory Data Attestation: I reviewed the patient's lab results. Result diagrams: 08/31/20 14:25 08/31/20 14:25 Lab Results 08/31/20 08/31/20 08/31/20 Range/Units 13:27 13:27 14:25 WBC 7.73 (4.8-10.8) K/uL RBC 4.69 (4.2-5.4) M/uL Hgb 14.2 (12.0-16.0) g/dL Hct 42.8 (37-47) % MCV 91.3 (80-100) fL MCH 30.3 (25-34) pg MCHC 33.2 (32-36) g/dL RDW Std Deviation 44.3 (36.4-46.3) fL RDW Coeff of [place] 13.4 (11.5-14.5) % Plt Count 277 (130-400) K/uL MPV 11.1 H (7.4-10.4) fL Immature Gran % (Auto) 0.3 % Neut % (Auto) 53.0 % Lymph % (Auto) 35.7 % [place] % (Auto) 8.4 % Eos % (Auto) 2.1 % Baso % (Auto) 0.5 % Neut # (Auto) 4.10 (1.4-6.5) K/uL Lymph # (Auto) 2.76 (1.2-3.4) K/uL [place] # (Auto) 0.65 H (0.11-0.59) K/uL Eos # (Auto) 0.16 (0-0.5) K/uL Baso # (Auto) 0.04 (0-0.2) K/uL Immature Gran # (Auto) 0.02 (0.00-0.02) K/uL Sodium (136-145) mmol/L Potassium (3.5-5.1) mmol/L Chloride (98-107) mmol/L Carbon Dioxide (21-32) mmol/L Anion Gap (3-11) BUN (7-18) mg/dl Creatinine (0.6-1.2) mg/dl Est Cr Clr Drug Dosing ml/min Est GFR ( Amer) Est GFR (Non-Af Amer) BUN/Creatinine Ratio (10-20) Glucose (70-99) mg/dl Calcium (8.5-10.1) mg/dl Total Bilirubin (0.2-1) mg/dl AST (15-37) U/L ALT (12-78) U/L Alkaline Phosphatase (45-117) U/L Total Protein (6.4-8.2) gm/dl Albumin (3.4-5.0) gm/dl Globulin (2.5-4.0) gm/dl Albumin/Globulin Ratio (0.9-2) TSH (0.300-4.500) uIu/ml Urine Color Yellow Urine Appearance Clear (Clear) Urine pH 5.0 (4.5-7.5) Ur Specific [place] 1.010 (1.000-1.030) Urine Protein Negative (Negative) Urine Glucose (UA) 2+ H (Negative) Urine Ketones Negative (Negative) Urine Blood Negative (Negative) Urine Nitrite Negative (Negative) Urine Bilirubin Negative (Negative) Urine Urobilinogen Negative (Negative) Ur Leukocyte Esterase Negative (Negative) Salicylates (2.8-20) mg/dl Urine Opiates Screen Neg (Neg) Ur Methadone, Qual Neg (Neg) Acetaminophen (10-30) ug/ml Urine Barbiturates Neg (Neg) Ur Phencyclidine (PCP) Neg (Neg) U Amphetamin/Meth Scrn Neg (Neg) MDMA (Ecstasy) Screen Neg (Neg) U Benzodiazepines Scrn Neg (Neg) Ur Cocaine Metabolite Neg (Neg) U Marijuana (THC) Screen Neg (Neg) Ethyl Alcohol mg/dL (0-3) mg/dl COVID-19 Eval Order SARS-CoV-2, RNA, NAAT (NEGATIVE) 08/31/20 08/31/20 08/31/20 Range/Units 14:25 14:25 14:25 WBC (4.8-10.8) K/uL RBC (4.2-5.4) M/uL Hgb (12.0-16.0) g/dL Hct (37-47) % MCV (80-100) fL MCH (25-34) pg MCHC (32-36) g/dL RDW Std Deviation (36.4-46.3) fL RDW Coeff of [place] (11.5-14.5) % Plt Count (130-400) K/uL MPV (7.4-10.4) fL Immature Gran % (Auto) % Neut % (Auto) % Lymph % (Auto) % [place] % (Auto) % Eos % (Auto) % Baso % (Auto) % Neut # (Auto) (1.4-6.5) K/uL Lymph # (Auto) (1.2-3.4) K/uL [place] # (Auto) (0.11-0.59) K/uL Eos # (Auto) (0-0.5) K/uL Baso # (Auto) (0-0.2) K/uL Immature Gran # (Auto) (0.00-0.02) K/uL Sodium 139 (136-145) mmol/L Potassium 4.5 (3.5-5.1) mmol/L Chloride 108 H (98-107) mmol/L Carbon Dioxide 28 (21-32) mmol/L Anion Gap 3.0 (3-11) BUN 12 (7-18) mg/dl Creatinine 0.93 (0.6-1.2) mg/dl Est Cr Clr Drug Dosing 53.4 ml/min Est GFR ( Amer) 73.2 Est GFR (Non-Af Amer) 63.1 BUN/Creatinine Ratio 13.3 (10-20) Glucose 137 H (70-99) mg/dl Calcium 9.4 (8.5-10.1) mg/dl Total Bilirubin 0.4 (0.2-1) mg/dl AST 43 H (15-37) U/L ALT 66 (12-78) U/L Alkaline Phosphatase 105 (45-117) U/L Total Protein 7.7 (6.4-8.2) gm/dl Albumin 3.7 (3.4-5.0) gm/dl Globulin 4.0 (2.5-4.0) gm/dl Albumin/Globulin Ratio 0.9 (0.9-2) TSH 2.090 (0.300-4.500) uIu/ml Urine Color Urine Appearance (Clear) Urine pH (4.5-7.5) Ur Specific [place] (1.000-1.030) Urine Protein (Negative) Urine Glucose (UA) (Negative) Urine Ketones (Negative) Urine Blood (Negative) Urine Nitrite (Negative) Urine Bilirubin (Negative) Urine Urobilinogen (Negative) Ur Leukocyte Esterase (Negative) Salicylates < 1.7 L (2.8-20) mg/dl Urine Opiates Screen (Neg) Ur Methadone, Qual (Neg) Acetaminophen < 2 L (10-30) ug/ml Urine Barbiturates (Neg) Ur Phencyclidine (PCP) (Neg) U Amphetamin/Meth Scrn (Neg) MDMA (Ecstasy) Screen (Neg) U Benzodiazepines Scrn (Neg) Ur Cocaine Metabolite (Neg) U Marijuana (THC) Screen (Neg) Ethyl Alcohol mg/dL < 3.0 (0-3) mg/dl COVID-19 Eval Order SARS-CoV-2, RNA, NAAT (NEGATIVE) 08/31/20 08/31/20 Range/Units 15:15 15:15 WBC (4.8-10.8) K/uL RBC (4.2-5.4) M/uL Hgb (12.0-16.0) g/dL Hct (37-47) % MCV (80-100) fL MCH (25-34) pg MCHC (32-36) g/dL RDW Std Deviation (36.4-46.3) fL RDW Coeff of [place] (11.5-14.5) % Plt Count (130-400) K/uL MPV (7.4-10.4) fL Immature Gran % (Auto) % Neut % (Auto) % Lymph % (Auto) % [place] % (Auto) % Eos % (Auto) % Baso % (Auto) % Neut # (Auto) (1.4-6.5) K/uL Lymph # (Auto) (1.2-3.4) K/uL [place] # (Auto) (0.11-0.59) K/uL Eos # (Auto) (0-0.5) K/uL Baso # (Auto) (0-0.2) K/uL Immature Gran # (Auto) (0.00-0.02) K/uL Sodium (136-145) mmol/L Potassium (3.5-5.1) mmol/L Chloride (98-107) mmol/L Carbon Dioxide (21-32) mmol/L Anion Gap (3-11) BUN (7-18) mg/dl Creatinine (0.6-1.2) mg/dl Est Cr Clr Drug Dosing ml/min Est GFR ( Amer) Est GFR (Non-Af Amer) BUN/Creatinine Ratio (10-20) Glucose (70-99) mg/dl Calcium (8.5-10.1) mg/dl Total Bilirubin (0.2-1) mg/dl AST (15-37) U/L ALT (12-78) U/L Alkaline Phosphatase (45-117) U/L Total Protein (6.4-8.2) gm/dl Albumin (3.4-5.0) gm/dl Globulin (2.5-4.0) gm/dl Albumin/Globulin Ratio (0.9-2) TSH (0.300-4.500) uIu/ml Urine Color Urine Appearance (Clear) Urine pH (4.5-7.5) Ur Specific [place] (1.000-1.030) Urine Protein (Negative) Urine Glucose (UA) (Negative) Urine Ketones (Negative) Urine Blood (Negative) Urine Nitrite (Negative) Urine Bilirubin (Negative) Urine Urobilinogen (Negative) Ur Leukocyte Esterase (Negative) Salicylates (2.8-20) mg/dl Urine Opiates Screen (Neg) Ur Methadone, Qual (Neg) Acetaminophen (10-30) ug/ml Urine Barbiturates (Neg) Ur Phencyclidine (PCP) (Neg) U Amphetamin/Meth Scrn (Neg) MDMA (Ecstasy) Screen (Neg) U Benzodiazepines Scrn (Neg) Ur Cocaine Metabolite (Neg) U Marijuana (THC) Screen (Neg) Ethyl Alcohol mg/dL (0-3) mg/dl COVID-19 Eval Order Covid19 IDNow [facility] SARS-CoV-2, RNA, NAAT NEGATIVE (NEGATIVE) MDM Narrative Patient presents suicidal as noted above. Laboratory studies are unremarkable. She is medically cleared for inpatient psychiatric admission. The patient is voluntary. She was admitted to [facility] [address]. Impression & Plan Depression with suicidal ideation Discharge Plan Visit Data Chief Complaint: Mental Health Evaluation ED Provider: Grady Simental Discharge Problem: Depression with suicidal ideation Discharge Instructions Interventions: ED Discharge Assessment Last Done: 08/31/20 17:22 Forms Stand Alone Forms: [facility], Suicide Prevention Resources Prescriptions Prescriptions: No Action atorvastatin 80 mg tablet 80 mg PO HS RF: 0 aspirin [Aspirin Low Dose] 81 mg Tablet,Delayed Release (Dr/Ec) 81 mg PO HS RF: 0 acetaminophen [Acetaminophen Extra Strength] 500 mg Tablet 1,000 mg PO TID PRN (Reason: Pain, Mild) RF: 0 isosorbide mononitrate 60 mg tablet extended release 24 hr 60 mg PO QAM RF: 0 pantoprazole 40 mg tablet,delayed release (DR/EC) 40 mg PO QAM RF: 0 escitalopram oxalate 10 mg tablet 20 mg PO HS RF: 0 metoprolol succinate 100 mg tablet extended release 24 hr 100 mg PO QAM RF: 0 metoprolol succinate 25 mg tablet extended release 24 hr 25 mg PO QAM RF: 0 metformin 500 mg tablet extended release 24 hr 1,000 mg PO BID RF: 0 Lantus Solostar U-100 Insulin 100 unit/mL (3 mL) insulin pen 40 unit SUBCUT HS RF: 0 Ozempic 0.25 mg or 0.5 mg(2 mg/1.5 mL) pen injector 0.5 mg SUBCUT WK RF: 0 cyanocobalamin (vitamin B-12) 1,000 mcg Tablet 1,000 mcg PO DAILY RF: 0 cholecalciferol (vitamin D3) 1,250 mcg (50,000 unit) Tablet 50,000 unit PO DAILY RF: 0 Referrals Referrals: Kane Soriano MD [Primary Care Provider] -
[2020-08-31] MEDS ORDERED: hydrOXYzine HCl 25 MG TAB PO PRN ×2 (17:07)
[2020-08-31] MEDS ORDERED: SODIUM CHLORIDE 0.65% NA SOLN 45 ML (OCEAN) PRN (17:07)
[2020-08-31] MEDS ORDERED: MAGNESIUM HYDROXIDE SUSP 30 ML UDC PO PRN (17:07)
[2020-08-31] MEDS ORDERED: ALUMINUM/MAGNESIUM SUSP 30 ML UDC PO PRN (17:07)
[2020-08-31] MEDS ORDERED: BISMUTH SUBSALICYLATE LIQD 236 ML PO PRN (17:07)
[2020-08-31] MEDS ORDERED: ACETAMINOPHEN 325 MG TAB PO PRN (17:07)
[2020-08-31] MEDS ORDERED: NON-FORMULARY MEDICATION (Semaglutide [Ozempic] 0.5 MG) SQ SCH (17:15)
[2020-08-31] MEDS ORDERED: PHARMACY GLYCEMIC MGMT CONSULT PRN (18:37)
[2020-08-31] MEDS ORDERED: GLUCOSE 10 TABS/TUBE PO PRN (20:30)
[2020-08-31] MEDS ORDERED: CARBOHYDRATES FOR HYPOGLYCEMIA PO PRN (20:30)
[2020-08-31] MEDS ORDERED: GLUCAGON FOR INJ 1 MG VIAL IM PRN (20:30)
[2020-08-31] MEDS ORDERED: DEXTROSE 50% 50 ML SYRINGE IV PRN (20:30)
[2020-08-31] MEDS ORDERED: GLUCOSE 40% GEL 15 GM TUBE PO PRN (20:30)
[2020-08-31] MEDS: metFORMIN HCL ER 500 MG TABCR PO SCH (21:12)
[2020-08-31] MEDS: ASPIRIN 81 MG ECTAB PO SCH (21:13)
[2020-08-31] MEDS: ATORVASTATIN 40 MG TAB PO SCH (21:13)
[2020-08-31] MEDS: INSULIN GLARGINE SOLOSTAR 100 UNITS/ML 3 ML PEN SQ SCH (21:17)
[2020-08-31] MEDS: INSULIN ASPART 100 UNITS/ML 3 ML PEN SC SCH (21:20)
[2020-08-31] MEDS ORDERED: ESCITALOPRAM OXALATE 20 MG TAB PO SCH (22:00)
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
[2020-09-01] MEDS: ISOSORBIDE MONO EXTENDED REL 60 MG TABCR PO SCH (09:21)
[2020-09-01] MEDS: PANTOprazole 40 MG TAB PO SCH (09:21)
[2020-09-01] MEDS: metFORMIN HCL ER 500 MG TABCR PO SCH ×2 (09:21→17:22)
[2020-09-01] MEDS: METOPROLOL SUCC 25MG EXT REL TAB PO SCH (09:22)
[2020-09-01] MEDS: CYANOCOBALAMIN 500 MCG TABLET (VITAMIN B-12) PO SCH (09:22)
[2020-09-01] MEDS: METOPROLOL SUCC 50MG EXT REL TAB PO SCH (09:23)
[2020-09-01] MEDS: INSULIN ASPART 100 UNITS/ML 3 ML PEN SC SCH ×4 (09:26→21:11)
[2020-09-01] MEDS: VENLAFAXINE HCL XR 37.5 MG CAPXR PO SCH (12:13)
--- NOTE | 2020-09-01 14:19 | Pharmacy Report ---
Glycemic Control Consultation - Date of Service September 01, 2020 - Scope Scope: Glycemic Pharmacist consulted for glycemic control and to write orders per [facility] inpatient glycemic control protocol. - Objective Weight: 82.6 kg Accuchecks BSG (last 24hrs): 08/31/20 08/31/20 09/01/20 14:25 21:01 08:36 Glucose 137 H POC Glucose 174 H 159 H 09/01/20 12:24 Glucose POC Glucose 169 H Laboratory Data (last 24hrs): 08/31/20 14:25 Potassium 4.5 Carbon Dioxide 28 Anion Gap 3.0 Creatinine 0.93 Est Cr Clr Drug Dosing 53.4 - Recent Pertinent Medications Outpatient Anti-diabetic Regimen: * Lantus 40 units HS * metformin 1000 mg BID * Ozempic * A1c = 8.9 % 08/26/20 The patient is currently receiving: * Basal insulin: Lantus 30 units every 24 hours * Correctional Insulin: Novolog Correction per scale ACHS Goal Range: Low 110 mg/dL - High 140 mg/dL Correction Factor: 30 mg/dL/unit * Prandial insulin: Per carb ratio of 1 unit per 10 grams CHO consumed * Oral Agents: Risk Factors for Insulin Resistance: * Diet: T2DM - Assessment & Plan Assessment & Plan: ASSESSMENT: * Ms Carmichael is a 69 y/o F with a PMH of uncontrolled T2DM. Her BSG on presentation was 137 mg/L. She was given 30 units of Lantus yesterday (about 25% dose reduction). * Fasting this morning was 159 mg/dL. Continue Lantus 30 units HS (give 20 units if BSG less than 110 mg/dL). This also correlates with full weight-based stress of 2. * Continue Novolog weight-based stress of 2. Continue metformin ER 1 gm PO BID. PLAN FOR INPATIENT GLYCEMIC CONTROL: * metformin ER 1 gm PO BID * Basal insulin * Lantus 30 units SQ HS (give 20 units if BSG < 110 mg/dL) * Bolus insulin * NovoLog per scale ACHS or Q6hrs while NPO * Goal Range: Low 110 mg/dL - High 140 mg/dL * Correction Factor: 30 mg/dL/unit * Nutritional / Prandial insulin per carb ratio of 1 unit per 10 grams CHO consumed * Please note that the plan above was derived based on current level of insulin resistance and hospital stress. These recommendations are appropriate for inpatient admission only. Plan of care upon discharge will need to be reassessed to avoid potential outpatient hypo/hyperglycemia. Thank you.
[2020-09-01] MEDS: ASPIRIN 81 MG ECTAB PO SCH (21:02)
[2020-09-01] MEDS: ATORVASTATIN 40 MG TAB PO SCH (21:02)
[2020-09-01] MEDS: ESCITALOPRAM OXALATE 10 MG TAB PO SCH (21:03)
[2020-09-01] MEDS: INSULIN GLARGINE SOLOSTAR 100 UNITS/ML 3 ML PEN SQ SCH (21:05)
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
[2020-09-02] MEDS: ISOSORBIDE MONO EXTENDED REL 60 MG TABCR PO SCH (09:26)
[2020-09-02] MEDS: PANTOprazole 40 MG TAB PO SCH (09:26)
[2020-09-02] MEDS: VENLAFAXINE HCL XR 37.5 MG CAPXR PO SCH (09:26)
[2020-09-02] MEDS: metFORMIN HCL ER 500 MG TABCR PO SCH ×2 (09:26→17:30)
[2020-09-02] MEDS: CYANOCOBALAMIN 500 MCG TABLET (VITAMIN B-12) PO SCH (09:26)
[2020-09-02] MEDS: METOPROLOL SUCC 25MG EXT REL TAB PO SCH (09:27)
[2020-09-02] MEDS: METOPROLOL SUCC 50MG EXT REL TAB PO SCH (09:27)
[2020-09-02] MEDS: INSULIN ASPART 100 UNITS/ML 3 ML PEN SC SCH ×4 (09:29→21:16)
[2020-09-02] MEDS: ATORVASTATIN 40 MG TAB PO SCH (21:15)
[2020-09-02] MEDS: ASPIRIN 81 MG ECTAB PO SCH (21:15)
[2020-09-02] MEDS: ESCITALOPRAM OXALATE 10 MG TAB PO SCH (21:15)
[2020-09-02] MEDS: INSULIN GLARGINE SOLOSTAR 100 UNITS/ML 3 ML PEN SQ SCH (21:16)
[2020-09-03] MEDS: VENLAFAXINE HCL XR 37.5 MG CAPXR PO SCH (09:16)
[2020-09-03] MEDS: ISOSORBIDE MONO EXTENDED REL 60 MG TABCR PO SCH (09:17)
[2020-09-03] MEDS: METOPROLOL SUCC 50MG EXT REL TAB PO SCH (09:17)
[2020-09-03] MEDS: CYANOCOBALAMIN 500 MCG TABLET (VITAMIN B-12) PO SCH (09:17)
[2020-09-03] MEDS: metFORMIN HCL ER 500 MG TABCR PO SCH ×2 (09:17→21:11)
[2020-09-03] MEDS: PANTOprazole 40 MG TAB PO SCH (09:17)
[2020-09-03] MEDS: METOPROLOL SUCC 25MG EXT REL TAB PO SCH (09:17)
[2020-09-03] MEDS: INSULIN ASPART 100 UNITS/ML 3 ML PEN SC SCH ×4 (09:30→21:06)
--- NOTE | 2020-09-03 09:38 | Pharmacy Report ---
Pharmacy Glycemic Short Note 2 - Date of Service September 03, 2020 - Glycemic Short BSG Results (Last 24 hours): OUTPATIENT ANTIDIABETIC REGIMEN: * Lantus 40 units HS + Ozempic 0.5 mg weekly + Metformin 1000 mg BIDM * A1c = 8.9% (08/26/2020) ASSESSMENT: 09/03: * Bethanie received a total of 35 units of insulin yesterday * 20 units basal + 15 units bolus * She continues on Metformin 1000 mg PO BIDM as well * BSGs were [phone] mg/dL - well controlled * Fasting BSG was 111 mg/dL this morning * No adjustments necessary to insulin regimen at this time 09/01: * Ms Carmichael is a 69 y/o F with a PMH of uncontrolled T2DM. Her BSG on presentation was 137 mg/L. She was given 30 units of Lantus yesterday (about 25% dose reduction). * Fasting this morning was 159 mg/dL. Continue Lantus 30 units HS (give 20 units if BSG less than 110 mg/dL). This also correlates with full weight-based stress of 2. * Continue Novolog weight-based stress of 2. Continue metformin ER 1 gm PO BID. PLAN FOR INPATIENT GLYCEMIC CONTROL: * Metformin 1000 mg PO BIDM * Basal insulin * Lantus 20-30 units SQ HS (see eMAR for more details) * Bolus insulin * NovoLog per scale ACHS or Q6hrs while NPO * Goal Range: Low 110 mg/dL - High 140 mg/dL * Correction Factor: 30 mg/dL/unit * Nutritional / Prandial insulin per carb ratio of 1 unit per 10 grams CHO consumed PLAN FOR DISCHARGE: * HbA1c = 8.9% from earlier this month. Goal HbA1c for this patient would be less than 8% given her age and comorbidities. * Would recommend increasing Ozempic to 1 mg subcutaneously every week. * Would recommend addition of mealtime insulin if patient is agreeable.
--- NOTE | 2020-09-03 11:49 | Psychiatric Progress Note ---
Date of Service September 03, 2020 Impression / Recommendations Impression 69-year-old female who lives alone in [place], has a history of depression and anxiety which began in her 30s and with at least 3 episodes of depression triggered by interpersonal difficulties, and presented with worsening mood and suicidal ideation. She has had a good trial of escitalopram 20 mg daily and does not feel it has been effective, and as she has now failed 2 SSRIs, we will switch to an SNRI. She does not have outpatient mental health services, and we will need to refer her for these. She identifies her sister who lives nearby as her primary support, and family meeting was held on 09/02. Pt is reporting on 09/03 that she had recurrence of suicidal ideation this morning and does not feel safe for discharge. Inpatient treatment is medically necessary due to the severity of symptoms and risk for suicide if discharged. (1) Depression with suicidal ideation: 09/01 - Continue voluntary hospitalization, Q15 min checks for safety -Encourage group attendance and participation, work on healthy coping skills and discharge safety plan -Reviewed diagnoses and treatment recommendations, including medications and therapy, focus on interpersonal relationships and family meeting with her sister. Escitalopram has been ineffective despite at least a few months on 20mg, and so will taper off and discussed a trial of an SNRI, namely venlafaxine XR. Reviewed risks, benefits, side effects and alternatives. Start 37.5mg daily, and increase to 75mg tomorrow. -Refer for outpatient psychiatry and therapy. 09/02 -continue titration of venlafaxine XR, discontinue escitalopram after today's dose. -Family meeting with sister today. Continue group attendance and participation, work on healthy coping skills and discharge safety plan. -Refer for outpatient treatment. Would benefit from trauma informed therapy. 09/03 - Continue cross-titration from escitalopram to venlafaxine. Will discontinue escitalopram, patient received last dose last evening. Will increase venlafaxine to 112.5mg for tomorrow morning. - Pt does admit she has been feeling much worse this morning, and does report suicidal ideation this morning. She reports physical and mental state this morning was similar to how she felt just prior to coming to the hospital. - Still requires referrals for outpatient psychiatric treatment. - Family meeting with sister yesterday - Continue to support patient and encourage participation in group and recreational programming (2) Generalized anxiety disorder: 09/01 - Start SNRI trial as above. Offer hydroxyzine as needed and work on behavioral techniques for managing anxiety. 09/03 - Pt reports increased anxiety this morning - Continue to assist with development of healthy and effective coping strategies (3) DM type 2 (diabetes mellitus, type 2): 09/01 -diabetic diet, continue home dose of Lantus insulin and metformin, consult diabetic pharmacist for assistance with glucose control. 09/03 - Pt requested additional information regarding management of diabetes, consultation placed for patient to meet with our home care liaison (4) HTN (hypertension): 09/01 -continue home dose of metoprolol; BP normal and stable. (5) Dyslipidemia: 09/01 -continue home dose of atorvastatin (6) CAD (coronary artery disease): 09/01 -continue home doses of isosorbide mononitrate and aspirin. (7) GERD (gastroesophageal reflux disease): 09/01 -continue pantoprazole. Risk Factors Assessment Do You Have Access To A Gun?: No Protective Factors Assessment Employed: No Interval History Identifying Information BEVERLEY WELLER is a 69-year-old F who currently lives in [place] alone, has a history of depression, and was admitted on 08/31/20 17:07 on a 201 voluntary commitment for suicidality. Chief Complaint "I was doing better. I saw 2-3 days listed and I was immediately anxious. I don't think I'm ready." Review of Systems Notes Constitutional: reports feeling "brain " today, more confused/"foggy" Cardiovascular: denied Respiratory: denied Gastrointestinal: denied Neurological: denied Psychiatric: denies symptoms other than stated above Total of at least 10 systems reviewed, pertinent positives as above and in HPI. Sleep Information Total Hours of Sleep: 7.25 Sleep Comments: Staff offered patient medication for sleep, a sound machine, ear plugs, etc. but patient refused these. Meal Information Percent Meal Consumed - Breakfast: 100 Percent Meal Consumed - Lunch: 100 Percent Meal Consumed - Dinner: 100 Subjective Subjective Patient was seen & assessed and interval progress reviewed with treatment team. Staff report the patient has been participating in group programming, but continues to use self-deprecating language related to her age and learning disability. Pt was seen today to assess progress since admission. Pt states she is feeling "brain " this morning. She reports that she was experiencing increased anxiety today, and then reviewed her treatment plan with staff. Pt states she was overwhelmed by thinking about returning home and tells this provider that suicidal thoughts returned. Pt states "it was feeling a lot like how I felt when I had wanted to jump out of the window." Pt reports she informed staff of her statements, but does feel like her current state is a set back. Pt is able to contract for safety on the unit, but does not believe that she could be safely discharged at this time. Pt does admit that her mood was improved yesterday, and she believes the meeting with her sister was beneficial. Pt continues to degrade herself in conversation, referencing that she is not as smart or as young as her peers. Attempts were made to reassure patient that she is also bringing very valuable contributions to the milieu. Pt admits "I'll be happy to get the Lexapro out of my system." She was happy to hear of plans to discontinue the medication today and continue titration of venlafaxine. Pt states, "I did feel suddenly happier after taking the new medication, but I don't know if that was real or not. I guess I'm choosing to believe that it's working." Pt continues to benefit from the group setting, and was encouraged to continue to participate. She is aware of plan for a home care liaison consultation and happy to learn of this. Pt agrees with ongoing inpatient hospitalization to continue to address anxiety and suicidal ideation while also equipping her with tools to manage stress and anxiety outside of the hospital. Pt denies other needs or concerns today. Physical Exam Psychiatric Orientation: alert, oriented x 3 and cooperative Apperance: appropriately dressed (casually, wearing a t-shirt and sweatpants), appropriately groomed and appeared stated age Eye Contact: good eye contact Motor Behavior: steady gait and station and no abnormal motor movements Speech: normal rate/rhythm/volume of speech Affect: + anxious affect and mood congruent with affect Mood: + anxious mood (reports acute increase in anxiety this morning) Thought Process: goal directed thought process and clear/coherent thought process Thought Content: reality based without delusions, + worthlessness, + loneliness and + self deprecation Suicidal Thoughts: denies suicidal plan; + reports suicidal thoughts Pt reports recurrence of suicidal thoughts t Homicidal Thoughts: denies homicidal thoughts Hallucinations: no auditory hallucinations and no visual hallucinations Cognition: attention grossly intact and language grossly intact Pt does admit to feeling more confused this morning Estimated Intelligence: consistent with education level Insight: + impaired insight Judgement: + impaired judgement Vital Signs (Past 24 Hours) Last Vital Signs Temp 36.8 C 09/03/20 06:44 Pulse 90 09/03/20 06:44 Resp 16 09/03/20 06:44 BP 129/77 09/03/20 06:44 Pulse Ox 96 08/31/20 17:21 Results & Data ([facility]) Laboratory Results Laboratory Results - last 24 hr 09/02/20 09/02/20 09/02/20 12:29 17:00 20:30 POC Glucose 181 H 118 H 106 H 09/03/20 08:14 POC Glucose 111 H Current Inpatient Medications Current Inpatient Medications: Current Inpatient Medications Acetaminophen (Acetaminophen 325 Mg Tab) 650 mg PO Q4H PRN PRN Reason: Headache or Minor Fever Stop: 09/30/20 17:06 Al Hydrox/Mg Hydrox/Simethicone (Aluminum/Magnesium Susp 30 Ml Udc) 30 ml PO Q4H PRN PRN Reason: GI Upset Stop: 09/30/20 17:06 Aspirin (Aspirin 81 Mg Ectab) 81 mg PO HS DANIELLE Stop: 09/30/20 21:59 Last Admin: 09/02/20 21:15 Dose: 81 mg Documented by: Atorvastatin Calcium (Atorvastatin 40 Mg Tab) 80 mg PO HS DANIELLE Stop: 09/30/20 21:59 Last Admin: 09/02/20 21:15 Dose: 80 mg Documented by: Bismuth Subsalicylate (Bismuth Subsalicylate Liqd 236 Ml) 15 ml PO PRN PRN PRN Reason: Loose Stool Stop: 09/30/20 17:06 Cyanocobalamin (Cyanocobalamin 500 Mcg Tablet (Vitamin B-12)) 1,000 mcg PO DAILY DANIELLE Stop: 10/01/20 08:59 Last Admin: 09/03/20 09:17 Dose: 1,000 mcg Documented by: Dextrose (Dextrose 50% 50 Ml Syringe) 25 - 50 ml IV UD PRN; Protocol PRN Reason: Hypoglycemia Protocol Stop: 09/30/20 20:29 Glucagon (Glucagon For Inj 1 Mg Vial) 1 mg IM UD PRN; Protocol PRN Reason: Hypoglycemia Protocol Stop: 09/30/20 20:29 Glucose (Glucose 40% Gel 15 Gm Tube) 15 - 30 gm PO UD PRN; Protocol PRN Reason: Hypoglycemia Protocol Stop: 09/30/20 20:29 Glucose (Glucose 10 Tabs/Tube) 4 - 8 tabs PO UD PRN; Protocol PRN Reason: Hypoglycemia Protocol Stop: 09/30/20 20:29 Hydroxyzine HCl (Hydroxyzine Hcl 25 Mg Tab) 50 mg PO HSZ PRN PRN Reason: Insomnia Stop: 09/30/20 17:06 Hydroxyzine HCl (Hydroxyzine Hcl 25 Mg Tab) 25 mg PO Q4H PRN PRN Reason: Anxiety Stop: 09/30/20 17:06 Insulin Aspart (Insulin Aspart 100 Units/Ml 3 Ml Pen) [address] [facility]; Protocol Stop: 09/30/20 21:59 Last Admin: 09/03/20 09:30 Dose: 5 units Documented by: Insulin Glargine (Insulin Glargine Solostar 100 Units/Ml 3 Ml Pen) 0 units SQ [facility]; Protocol Stop: 09/30/20 21:59 Last Admin: 09/02/20 21:16 Dose: 20 units Documented by: Isosorbide Mononitrate (Isosorbide Mayes Extended Rel 60 Mg Tabcr) 60 mg PO [facility] Stop: 10/01/20 08:59 Last Admin: 09/03/20 09:17 Dose: 60 mg Documented by: Magnesium Hydroxide (Magnesium Hydroxide Susp 30 Ml Udc) 30 ml PO DAILY PRN PRN Reason: Constipation Stop: 09/30/20 17:06 Metformin HCl (Metformin Hcl Er 500 Mg Tabcr) 1,000 mg PO BIDM [facility]; Protocol Stop: 09/30/20 19:59 Last Admin: 09/03/20 09:17 Dose: 1,000 mg Documented by: Metoprolol Succinate (Metoprolol Succ 50mg Ext Rel Tab) 100 mg PO [facility] Stop: 10/01/20 08:59 Last Admin: 09/03/20 09:17 Dose: 100 mg Documented by: Metoprolol Succinate (Metoprolol Succ 25mg Ext Rel Tab) [facility] Stop: 10/01/20 08:59 Last Admin: 09/03/20 09:17 Dose: 25 mg Documented by: Miscellaneous (Vitamin D - Order Awaiting Action) 1 ea N/A QS [facility] Stop: 10/01/20 07:59 Last Admin: 09/02/20 20:46 Dose: Not Given Documented by: Miscellaneous (Carbohydrates For Hypoglycemia ) 15 - 30 gm PO UD PRN PRN Reason: Hypoglycemia Treatment Stop: 09/30/20 20:29 Miscellaneous Information (Pharmacy Glycemic Mgmt Consult) 1 ea N/A UD PRN PRN Reason: consult Stop: 09/30/20 18:36 Pantoprazole Sodium (Pantoprazole 40 Mg Tab) 40 mg PO QAM [facility] Stop: 10/01/20 08:59 Last Admin: 09/03/20 09:17 Dose: 40 mg Documented by: Sodium Chloride (Sodium Chloride 0.65% Na Soln 45 Ml ([place])) 1 - 2 sprays NA PRN PRN PRN Reason: Nasal Dryness/Congestion Stop: 09/30/20 17:06 Venlafaxine HCl (Venlafaxine Hcl Xr 75 Mg Capxr) 112.5 mg PO QAM [facility] Stop: 10/04/20 08:59 Mental Health & Subst Abuse Tx Therapist Name of Therapist: None Food Sanitarian Name of Food Sanitarian: None Post Discharge Appointments Primary Care Physician Name Of Family Doctor: Dr. Soriano (1) CAD (coronary artery disease) Associated angina: with unstable angina Coronary Disease-Associated Artery/Lesion type: [place] artery [place] vs. transplanted heart: [place] heart Qualified Code(s): I25.110 - Atherosclerotic heart disease of [place] coronary artery with unstable angina pectoris
[2020-09-03] MEDS: INSULIN GLARGINE SOLOSTAR 100 UNITS/ML 3 ML PEN SQ SCH (21:09)
[2020-09-03] MEDS: ASPIRIN 81 MG ECTAB PO SCH (21:11)
[2020-09-03] MEDS: ATORVASTATIN 40 MG TAB PO SCH (21:12)
[2020-09-04] MEDS ORDERED: VENLAFAXINE HCL XR 37.5 MG CAPXR PO SCH ×2 (09:00)
[2020-09-04] MEDS ORDERED: VENLAFAXINE HCL XR 75 MG CAPXR PO SCH (09:00)
[2020-09-04] MEDS: INSULIN ASPART 100 UNITS/ML 3 ML PEN SC SCH ×3 (09:46→13:30)
[2020-09-04] MEDS: metFORMIN HCL ER 500 MG TABCR PO SCH (09:48)
[2020-09-04] MEDS: METOPROLOL SUCC 50MG EXT REL TAB PO SCH (09:49)
[2020-09-04] MEDS: PANTOprazole 40 MG TAB PO SCH (09:49)
[2020-09-04] MEDS: ISOSORBIDE MONO EXTENDED REL 60 MG TABCR PO SCH (09:49)
[2020-09-04] MEDS: METOPROLOL SUCC 25MG EXT REL TAB PO SCH (09:50)
[2020-09-04] MEDS: CYANOCOBALAMIN 500 MCG TABLET (VITAMIN B-12) PO SCH (09:50)
--- NOTE | 2020-09-04 12:55 | Discharge Summary ---
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 100 unit/mL (3 mL) insulin pen 40 unit SUBCUT HS RF: 0 Ozempic 0.25 mg or 0.5 mg(2 mg/1.5 mL) pen injector 0.5 mg SUBCUT WK RF: 0 cyanocobalamin (vitamin B-12) 1,000 mcg Tablet 1,000 mcg PO DAILY RF: 0 cholecalciferol (vitamin D3) 1,250 mcg (50,000 unit) Tablet 50,000 unit PO DAILY RF: 0 Discontinued escitalopram oxalate 10 mg tablet 20 mg PO HS RF: 0 Discharge Orders: Discharge Order (Routine); Ordered 09/04/20 Ordered By: Shana Roman Admission Data Admit Date/Time: 08/31/20 17:07 Attending Provider: Shana Roamn Admit Provider: Shana Roman Primary Care Provider: Kane Soriano Other Interventions: PSY Interdisciplinary Discharge Planning Last Done: 09/03/20 13:52 Coding Level of Care Code 28717 D/C day mgmt > 30 min Diagnoses Depression with suicidal ideation F32.9; R45.851 PTSD (post-traumatic stress disorder) F43.10 Generalized anxiety disorder F41.1 DM type 2 (diabetes mellitus, type 2) E11.9 HTN (hypertension) I10 Dyslipidemia E78.5 CAD (coronary artery disease) I25.110 Coronary Disease-Associated Artery/Lesion type: [place] artery [place] vs. transplanted heart: [place] heart Associated angina: with unstable angina GERD (gastroesophageal reflux disease) K21.9
== END 2020-09-04 13:55 | disposition home or self-care (01) | DRG 885 ==
LOC: ED 13:12 → 3S 17:07

== ENCOUNTER 2023-06-20 22:01 | Observation (INO) ==
[2023-06-20] MEDS ORDERED: FAMOTIDINE 20MG IV PUSH 20 MG/5 ML SYR IV STA (22:19)
[2023-06-20] MEDS ORDERED: SODIUM CHLORIDE 0.9% 500 ML IV STA (22:19)
[2023-06-20] MEDS ORDERED: ONDANSETRON INJ 2 MG/ML 2 ML VIAL IV STA ×2 (22:19→23:15)
--- NOTE | 2023-06-20 22:40 | Emergency Department Note ---
History of Present Illness General Chief complaint: Vomiting Stated complaint: DECREASED PO INTAKE, VOMITTING Time Seen by Provider: 06/20/23 22:10 History of Present Illness This 72-year-old female type II diabetic on Ozempic presents the ER complaining of nausea vomiting diarrhea and hyperglycemia since Thursday. Patient received her Ozempic shot Thursday. Patient denies chest pain, dyspnea, fevers, flulike illness. No well water. No recent antibiotics. She also complains of abdominal pain. Home Medications Medication Instructions Recorded Confirmed Type acetaminophen 500 mg tablet 1,000 mg PO TID PRN Pain, Mild 08/31/20 06/20/23 History (Acetaminophen Extra Strength) aspirin 81 mg tablet,delayed 81 mg PO HS 08/31/20 06/20/23 History release (Jose G Low Dose Aspirin) atorvastatin 80 mg tablet 80 mg PO HS 08/31/20 06/20/23 History cyanocobalamin (vitamin B-12) 1,000 mcg PO DAILY 08/31/20 06/20/23 History 1,000 mcg tablet insulin glargine 100 unit/mL (3 50 unit subcut HS 08/31/20 06/20/23 History mL) subcutaneous pen (Lantus Solostar U-100 Insulin) isosorbide mononitrate 60 mg 60 mg PO QAM 08/31/20 06/20/23 History tablet,extended release 24 hr metformin 500 mg tablet,extended 1,000 mg PO QAM 08/31/20 06/20/23 History release 24 hr metoprolol succinate 100 mg 100 mg PO QAM 08/31/20 06/20/23 History tablet,extended release 24 hr metoprolol succinate 25 mg 25 mg PO QAM 08/31/20 06/20/23 History tablet,extended release 24 hr pantoprazole 40 mg tablet,delayed 40 mg PO DAILYBB 08/31/20 06/20/23 History release ezetimibe 10 mg tablet 10 mg PO DAILY 11/18/21 06/20/23 History magnesium oxide 400 mg PO BID 11/18/21 06/20/23 History nitroglycerin 0.4 mg sublingual 0.4 mg sublingual DIRECTED PRN 11/18/21 06/20/23 History tablet (Nitrostat) Chest Pain venlafaxine 75 mg capsule,extended 75 mg PO AMHS 11/18/21 06/20/23 History release 24 hr amlodipine 5 mg tablet 5 mg PO DAILY 06/20/23 06/20/23 History cholecalciferol (vitamin D3) 25 0 mcg PO DAILY 06/20/23 06/20/23 History mcg (1,000 unit) capsule (Vitamin D3) lisinopril 2.5 mg tablet 2.5 mg PO QAM 06/20/23 06/20/23 History semaglutide 1 mg/dose (4 mg/3 mL) 1 mg subcut WK 06/20/23 06/20/23 History subcutaneous pen injector (Ozempic) venlafaxine 37.5 mg tablet 37.5 mg PO QDL 06/20/23 06/20/23 History Allergies Allergy/AdvReac Type Severity Reaction Status Date / Time cefuroxime Allergy Intermediate HIVES Verified 06/20/23 23:32 empagliflozin AdvReac Intermediate YEAST Verified 06/20/23 23:32 [From Jardiance] INFECTION glimepiride AdvReac Intermediate FREQUENT Verified 06/20/23 23:32 HYPOGLYCEMIA FLU VACCINE Allergy Intermediate SORES ALL Uncoded 06/20/23 23:32 OVER FACE AND IN MOUTH Past Med/Surg History Medical History Breast cancer RT BREAST (SURGERY WITH CHEMO AND RADIATION) CAD (coronary artery disease) "06/2016 - abnormal stress test pilot to cardiac cath on 07/09/16 that showed 90% ostial RCA stenosis s/p stenting" Depression DM type 2 (diabetes mellitus, type 2) Dyslipidemia Generalized anxiety disorder GERD (gastroesophageal reflux disease) HTN (hypertension) Myocardial Infarction JANUARY 2018 Peripheral neuropathy PTSD (post-traumatic stress disorder) Temporomandibular joint disorder Surgical History History of appendectomy History of bilateral mastectomy WITH RECONSTRUCTION History of dilatation and curettage History of heart artery stent 3 STENTS PLACED TOTAL IN THE PAST (2 YEARS AGO) FOLLOWS WITH CARDIOLOGY>KOPINSKI History of right cataract surgery History of tonsillectomy History of total hysterectomy History of vascular access device PORT INSERTION AND REMOVAL S/P CABG x 21 JANUARY 2018 LAUREN RAZOER Family History Uncle Family history of diabetes mellitus Social History Smoking Status: Never smoker Tobacco Type: Cigarettes Second Hand Exposure: No; Do You Dip or Chew Tobacco: No; Hx Alcohol Use: No Hx Substance Use: No Preferred Language: [place] Communication Ability: Effective Interventional Cardiologist Required: No Beliefs That Will Affect Care: None marital status: Single Current Living Situation: Alone current occupational status: retired Feels Safe at Home: Yes Assistive Devices: Glasses Review of Systems A total of 10 systems reviewed and were otherwise negative Physical Exam Vital Signs Vital Signs - 24 hr 06/20/23 22:07 06/20/23 22:21 06/20/23 22:30 Temperature 36.8 C Temperature Source Temporal Artery Scan Pulse Rate 87 74 74 Pulse Rate from SpO2 Sensor 69 74 Respiratory Rate 18 14 16 Respiratory Effort / Characteristics Non-Labored Spontaneous Respiratory Depth Normal Respiratory Pattern Regular Blood Pressure 149/75 H Blood Pressure Mean 99 Pulse Oximetry 98 98 97 Oxygen Delivery Method Room Air Room Air Room Air Sepsis Recent Fever Within 48 Hours No Sepsis New/Unexplained Change in Mental Status No Sepsis Action Taken by Nursing No Action Required 06/20/23 23:05 06/20/23 23:30 06/20/23 23:43 Temperature Temperature Source Pulse Rate 84 88 87 Pulse Rate from SpO2 Sensor 84 88 81 Respiratory Rate 17 19 19 Respiratory Effort / Characteristics Respiratory Depth Respiratory Pattern Blood Pressure 163/79 H 169/91 H Blood Pressure Mean 107 117 Pulse Oximetry 98 97 100 Oxygen Delivery Method Sepsis Recent Fever Within 48 Hours Sepsis New/Unexplained Change in Mental Status Sepsis Action Taken by Nursing 06/21/23 00:00 06/21/23 00:30 Temperature Temperature Source Pulse Rate 81 78 Pulse Rate from SpO2 Sensor 80 78 Respiratory Rate 18 14 Respiratory Effort / Characteristics Respiratory Depth Respiratory Pattern Blood Pressure 157/78 H 116/83 Blood Pressure Mean 104 94 Pulse Oximetry 97 95 Oxygen Delivery Method Sepsis Recent Fever Within 48 Hours Sepsis New/Unexplained Change in Mental Status Sepsis Action Taken by Nursing VITALS: Vitals are noted on the nurse's note and reviewed by myself. Vital signs stable. GENERAL: Pleasant female, in no acute distress, nondiaphoretic, well-developed well-nourished. SKIN: The skin was without rashes, erythema, edema, or bruising. There is no tenting of the skin. Capillary reflex less than 2 seconds. HEAD: Normocephalic atraumatic. EARS: External auditory canals clear EYES: Pupils equal round and reactive to light and accommodation. Conjunctivae without injection, sclerae without icterus. Extraocular movements intact. NOSE: Patent, turbinates without inflammation or discharge. MOUTH: Mucous membranes moist. Pharynx without erythema or exudate. Uvula midline. Airway patent. Tongue does not deviate. NECK: Supple without nuchal rigidity. No lymphadenopathy. No thyromegaly. Cervical spine is nontender. No JVD. HEART: Regular rate and rhythm LUNGS: Clear to auscultation bilaterally without wheezes, rales or rhonchi. No retractions or accessory muscle use. ABDOMEN: Positive bowel sounds x 4. Normal tympanic percussion. Soft, tender mid abdomen, without masses or organomegaly. Munoz sign negative. No guarding or rebound tenderness. No CVA tenderness MUSCULOSKELETAL: No muscle atrophy, erythema, or edema noted. NEURO: Patient was alert and oriented to person place and time. Normal sensat ion to light and sharp touch. No focal neurological deficits. Course Administered Medications Discontinued Medications Sodium Chloride (Nss) 500 mls @ 999 mls/hr IV .Q31M STA Stop: 06/20/23 22:49 Last Infusion: 06/20/23 23:05 Dose: 0 mls/hr Documented By: Admin: 06/20/23 22:27 Dose: 999 mls/hr Documented By: CHRISTIAN Famotidine (Pepcid 20mg Iv Push) 20 mg in 5 mls @ 2.5 mls/min IV NOW STA Stop: 06/20/23 22:20 Last Admin: 06/20/23 22:27 Dose: 2.5 mls/min Documented By: CHRISTIAN Sodium Chloride (Nss 1000ml) 500 mls @ 999 mls/hr IV .Q31M ONE Stop: 06/20/23 23:45 Last Infusion: 06/20/23 23:59 Dose: 0 mls/hr Documented By: Admin: 06/20/23 23:22 Dose: 999 mls/hr Documented By: JACKELINE Acetaminophen (Ofirmev) 1,000 mg in 100 mls @ 400 mls/hr IV NOW STA Stop: 06/20/23 23:51 Last Infusion: 06/20/23 23:59 Dose: 0 mls/hr Documented By: Admin: 06/20/23 23:43 Dose: 400 mls/hr Documented By: JACKELINE Ioversol (Optiray 320 100ml) 93 ml IV ONCE ONE Stop: 06/20/23 23:00 Last Admin: 06/20/23 22:59 Dose: 93 ml Documented By: MINDA Ondansetron HCl (Ondansetron Inj 2 Mg/Ml 2 Ml Vial) 4 mg IV NOW STA Stop: 06/20/23 22:20 Last Admin: 06/20/23 22:27 Dose: 4 mg Documented By: CHRISTIAN Ondansetron HCl (Ondansetron Inj 2 Mg/Ml 2 Ml Vial) 4 mg IV NOW STA Stop: 06/20/23 23:16 Last Admin: 06/20/23 23:22 Dose: 4 mg Documented By: JACKELINE Medical Decision Making Medical Records Attestation: I reviewed the patient's medical records. Home Medications Current Medication List: was personally reviewed by me Laboratory Data Attestation: I reviewed the patient's lab results. 06/20/23 22:30 06/20/23 22:30 Lab Results 06/20/23 06/20/23 06/20/23 Range/Units 22:14 22:30 22:30 WBC 8.76 (4.8-10.8) K/ul RBC 5.51 H (4.20-5.40) M/uL Hgb 16.8 H (12.0-16.0) g/dl POC Hgb (12.0-16.0) g/dl Hct 49.8 H (37.0-47.0) % POC Hct (37-47) % MCV 90.4 (80.0-100.0) fL MCH 30.5 (25.0-34.0) pg MCHC 33.7 (32.0-36.0) g/dL RDW Std Deviation 40.5 (36.4-46.3) fL RDW Coeff of Sedrick 12.2 (11.5-14.5) % Plt Count 276 (130-400) K/uL MPV 10.9 (9.4-12.4) fL Immature Gran % (Auto) 0.3 % Neut % (Auto) 56.6 % Lymph % (Auto) 31.3 % [place] % (Auto) 8.4 % Eos % (Auto) 2.7 % Baso % (Auto) 0.7 % Neut # (Auto) 4.95 (1.40-6.50) K/uL Lymph # (Auto) 2.74 (1.2-3.4) K/uL [place] # (Auto) 0.74 H (0.11-0.59) K/uL Eos # (Auto) 0.24 (0-0.50) K/uL Baso # (Auto) 0.06 (0-0.2) K/uL Immature Gran # (Auto) 0.03 (0.01-0.20) K/uL VBG pH (7.36-7.41) VBG pCO2 (38-50) mmHg VBG pO2 mmHg VBG HCO3 mmol/L VBG O2 Saturation % VBG Base Excess mEq/L POC Sodium (135-144) mmol/L Sodium 137 (136-145) mmol/L POC Potassium (3.3-5.0) mmol/L Potassium 3.7 (3.5-5.1) mmol/L POC Chloride (101-112) mmol/L Chloride 101 (98-107) mmol/L Carbon Dioxide 25 (21-32) mmol/L POC Total CO2 (24-31) mmol/L Anion Gap 11 (3-11) POC Anion Gap (16-25) mmol/L POC BUN (7-18) mg/dl BUN 14 (6-23) mg/dl Creatinine 0.83 (0.6-1.2) mg/dl POC Creatinine (0.6-1.3) mg/dl Est Cr Clr Drug Dosing 54.2 ml/min Est GFR ( Amer) 82.2 ml/min Est GFR (Non-Af Amer) 70.9 ml/min BUN/Creatinine Ratio 16.9 (10-20) Glucose 236 H (70-99(Fasting)) mg/dl POC Glucose 222 H (70-99) mg/dl POC Glucose (other) (70-99) mg/dl Lactate (0.4-2.0) mmol/L Calcium 9.9 (8.6-10.3) mg/dl POC Ioniz Calcium Holly (1.12-1.32) mmol/l Magnesium 1.7 (1.7-2.4) mg/dl Total Bilirubin 0.6 (0.2-1.0) mg/dl AST 69 H (13-39) U/L ALT 53 H (7-52) U/L Alkaline Phosphatase 84 (34-104) U/L Troponin I High Sens 4.5 (0-14) pg/ml Total Protein 8.2 (6.0-8.3) gm/dl Albumin 4.5 (3.4-5.0) gm/dl Globulin 3.7 (2.5-4.0) gm/dl Albumin/Globulin Ratio 1.2 (0.9-2) Lipase 12 (11-82) U/L Urine Color Urine Appearance (Clear) Urine pH (4.5-7.5) Ur Specific [place] (1.000-1.030) Urine Protein (Negative) Urine Glucose (UA) (Negative) Urine Ketones (Negative) Urine Blood (Negative) Urine Nitrite (Negative) Urine Bilirubin (Negative) Urine Urobilinogen (Negative) Ur Leukocyte Esterase (Negative) 06/20/23 06/20/23 06/20/23 Range/Units 22:30 22:30 22:36 WBC (4.8-10.8) K/ul RBC (4.20-5.40) M/uL Hgb (12.0-16.0) g/dl POC Hgb 18.4 H (12.0-16.0) g/dl Hct (37.0-47.0) % POC Hct 54 H (37-47) % MCV (80.0-100.0) fL MCH (25.0-34.0) pg MCHC (32.0-36.0) g/dL RDW Std Deviation (36.4-46.3) fL RDW Coeff of Sedrick (11.5-14.5) % Plt Count (130-400) K/uL MPV (9.4-12.4) fL Immature Gran % (Auto) % Neut % (Auto) % Lymph % (Auto) % [place] % (Auto) % Eos % (Auto) % Baso % (Auto) % Neut # (Auto) (1.40-6.50) K/uL Lymph # (Auto) (1.2-3.4) K/uL [place] # (Auto) (0.11-0.59) K/uL Eos # (Auto) (0-0.50) K/uL Baso # (Auto) (0-0.2) K/uL Immature Gran # (Auto) (0.01-0.20) K/uL VBG pH 7.38 (7.36-7.41) VBG pCO2 45 (38-50) mmHg VBG pO2 27 mmHg VBG HCO3 27 mmol/L VBG O2 Saturation < 60.0 % VBG Base Excess 1.0 mEq/L POC Sodium 139 (135-144) mmol/L Sodium (136-145) mmol/L POC Potassium 3.6 (3.3-5.0) mmol/L Potassium (3.5-5.1) mmol/L POC Chloride 101 (101-112) mmol/L Chloride (98-107) mmol/L Carbon Dioxide (21-32) mmol/L POC Total CO2 24 (24-31) mmol/L Anion Gap (3-11) POC Anion Gap 18.0 (16-25) mmol/L POC BUN 14 (7-18) mg/dl BUN (6-23) mg/dl Creatinine (0.6-1.2) mg/dl POC Creatinine 0.6 (0.6-1.3) mg/dl Est Cr Clr Drug Dosing ml/min Est GFR ( Amer) ml/min Est GFR (Non-Af Amer) ml/min BUN/Creatinine Ratio (10-20) Glucose (70-99(Fasting)) mg/dl POC Glucose (70-99) mg/dl POC Glucose (other) 247 H (70-99) mg/dl Lactate 1.6 (0.4-2.0) mmol/L Calcium (8.6-10.3) mg/dl POC Ioniz Calcium Holly 1.24 (1.12-1.32) mmol/l Magnesium (1.7-2.4) mg/dl Total Bilirubin (0.2-1.0) mg/dl AST (13-39) U/L ALT (7-52) U/L Alkaline Phosphatase (34-104) U/L Troponin I High Sens (0-14) pg/ml Total Protein (6.0-8.3) gm/dl Albumin (3.4-5.0) gm/dl Globulin (2.5-4.0) gm/dl Albumin/Globulin Ratio (0.9-2) Lipase (11-82) U/L Urine Color Urine Appearance (Clear) Urine pH (4.5-7.5) Ur Specific [place] (1.000-1.030) Urine Protein (Negative) Urine Glucose (UA) (Negative) Urine Ketones (Negative) Urine Blood (Negative) Urine Nitrite (Negative) Urine Bilirubin (Negative) Urine Urobilinogen (Negative) Ur Leukocyte Esterase (Negative) 06/20/23 Range/Units 23:40 WBC (4.8-10.8) K/ul RBC (4.20-5.40) M/uL Hgb (12.0-16.0) g/dl POC Hgb (12.0-16.0) g/dl Hct (37.0-47.0) % POC Hct (37-47) % MCV (80.0-100.0) fL MCH (25.0-34.0) pg MCHC (32.0-36.0) g/dL RDW Std Deviation (36.4-46.3) fL RDW Coeff of Sedrick (11.5-14.5) % Plt Count (130-400) K/uL MPV (9.4-12.4) fL Immature Gran % (Auto) % Neut % (Auto) % Lymph % (Auto) % [place] % (Auto) % Eos % (Auto) % Baso % (Auto) % Neut # (Auto) (1.40-6.50) K/uL Lymph # (Auto) (1.2-3.4) K/uL [place] # (Auto) (0.11-0.59) K/uL Eos # (Auto) (0-0.50) K/uL Baso # (Auto) (0-0.2) K/uL Immature Gran # (Auto) (0.01-0.20) K/uL VBG pH (7.36-7.41) VBG pCO2 (38-50) mmHg VBG pO2 mmHg VBG HCO3 mmol/L VBG O2 Saturation % VBG Base Excess mEq/L POC Sodium (135-144) mmol/L Sodium (136-145) mmol/L POC Potassium (3.3-5.0) mmol/L Potassium (3.5-5.1) mmol/L POC Chloride (101-112) mmol/L Chloride (98-107) mmol/L Carbon Dioxide (21-32) mmol/L POC Total CO2 (24-31) mmol/L Anion Gap (3-11) POC Anion Gap (16-25) mmol/L POC BUN (7-18) mg/dl BUN (6-23) mg/dl Creatinine (0.6-1.2) mg/dl POC Creatinine (0.6-1.3) mg/dl Est Cr Clr Drug Dosing ml/min Est GFR ( Amer) ml/min Est GFR (Non-Af Amer) ml/min BUN/Creatinine Ratio (10-20) Glucose (70-99(Fasting)) mg/dl POC Glucose (70-99) mg/dl POC Glucose (other) (70-99) mg/dl Lactate (0.4-2.0) mmol/L Calcium (8.6-10.3) mg/dl POC Ioniz Calcium Holly (1.12-1.32) mmol/l Magnesium (1.7-2.4) mg/dl Total Bilirubin (0.2-1.0) mg/dl AST (13-39) U/L ALT (7-52) U/L Alkaline Phosphatase (34-104) U/L Troponin I High Sens (0-14) pg/ml Total Protein (6.0-8.3) gm/dl Albumin (3.4-5.0) gm/dl Globulin (2.5-4.0) gm/dl Albumin/Globulin Ratio (0.9-2) Lipase (11-82) U/L Urine Color Yellow Urine Appearance Clear (Clear) Urine pH 5.5 (4.5-7.5) Ur Specific [place] > 1.045 H (1.000-1.030) Urine Protein Negative (Negative) Urine Glucose (UA) 3+ H (Negative) Urine Ketones 1+ H (Negative) Urine Blood Negative (Negative) Urine Nitrite Negative (Negative) Urine Bilirubin Negative (Negative) Urine Urobilinogen Negative (Negative) Ur Leukocyte Esterase Negative (Negative) Imaging Data Attestation: I personally reviewed and interpreted this imaging study as follows: Radiologist's Impression: Abdomen/Pelvis CT 06/20/23 22:19 Exam(s): CT ABDOMEN + PELVIS With Contrast IV Amt: 93 cc's EXAM: CT Abdomen and Pelvis With Intravenous Contrast CLINICAL HISTORY: Reason for exam: mid abd pain. TECHNIQUE: Axial computed tomography images of the abdomen and pelvis with intravenous contrast. CTDI is 24.55 mGy and DLP is 1186.5 mGy-cm. Automated exposure control was utilized for the study. A dose lowering technique was utilized adhering to the principles of ALARA. CONTRAST: Patient received 93 cc's of IV contrast COMPARISON: No relevant prior studies available. FINDINGS: Lung bases: Unremarkable. No mass. No consolidation. ABDOMEN: Liver: Hepatic steatosis. Gallbladder and bile ducts: Unremarkable. No calcified stones. No ductal dilation. Pancreas: Unremarkable. No mass. No ductal dilation. Spleen: Unremarkable. No splenomegaly. Adrenals: Unremarkable. No mass. Kidneys and ureters: Unremarkable. No hydronephrosis or delayed nephrogram. Stomach and bowel: Diverticulosis, without acute diverticulitis. No small bowel obstruction. No free intraperitoneal air. PELVIS: Appendix: Normal appendix. Bladder: Decompressed urinary bladder. Reproductive: Unremarkable as visualized. ABDOMEN and PELVIS: Intraperitoneal space: Unremarkable. No free air. No significant fluid collection. Bones/joints: Degenerative changes of the spine. No acute fracture. No dislocation. Soft tissues: Bilateral breast implants. Vasculature: Atherosclerotic changes of the aorta. No abdominal aortic aneurysm. Lymph nodes: Unremarkable. No enlarged lymph nodes. IMPRESSION: 1. No hydronephrosis or delayed nephrogram. 2. Diverticulosis, without acute diverticulitis. No small bowel obstruction. No free intraperitoneal air. Electronically signed by: Yoseph Jones MD 06/21/23 01:17 AM [facility] Narrative Prior records/ancillary studies reviewed. Triage Nursing notes reviewed. Additional history obtained from nursing The patient's history was concerning for nausea, vomiting, diarrhea, and abdominal pain. Differential diagnosis: Etiologies such as side effect of Ozempic, DKA, gastroenteritis, food borne illness, infections, appendicitis, diverticulitis, inflammatory bowel disease, obstruction, GI bleed, biliary pathology, as well as others were entertained. Physical examination findings: As above. Abdominal examination revealed mild tenderness. Vital signs reviewed and revealed stable. ER treatment provided: IV hydration 500mL NSS. Zofran and Pepcid were ordered Zofran and Tylenol were ordered On reassessment the patient felt better. Patient was tolerating p.o. intake. Diagnostics interpretation by me: EKG ordered for upper abdominal pain EKG: Normal sinus, poor baseline, no acute ST-T wave changes, rate of 78. Im pression normal sinus rhythm independently interpreted by myself I think arrhythmia is unlikely. EKG shows normal sinus rhythm with no interval abnormalities such as QT prolongation or WPW. There are no findings to suggest Brugada syndrome. Cardiac monitoring in the emergency department reveals no t achycardic or bradycardic dysrhythmia. Hypertrophic cardiomyopathy was considered but there are no clear historical elements pointing toward this. EKG is not suggestive. The QRS voltage is not extremely large and there are no suggestive Q waves. The labs Independently Interpreted by myself revealed no worrisome leukocytosis. Normal VBG. Negative troponin Hyperglycemia without DKA Minimally elevated LFTs Negative urine Imaging studies: CT of the abdomen pelvis negative for obstruction per my independent interpretation and report was reviewed as above. Consultation: A consultation was placed with the hospitalist. The case was discussed and diagnostics were reviewed. The patient was evaluated in the ER for further treatment. This appears to be consistent with intractable nausea and vomiting. Patient still felt quite nauseous. She was given multiple rounds of antiemetics. Patient does not feel comfortable going home. Medicine was consulted and the case was discussed. She will be admitted to the medical team for further evaluation and work-up. Labs and diagnostics were independent interpreted by myself. CT was negative for acute findings. She was dehydrated on laboratory testing. By the evaluation outlined above emergent etiologies such as appendicitis, diverticulitis, obstruction, cardiac sources, mesenteric ischemia, aortic pathology, inflammatory bowel disease, renal colic, PUD, biliary pathology, UTI, as well as others were deemed relatively unlikely. The pt informed about the findings as listed above. All questions were answered and pleased with the treatment. The chart was completed utilizing [employer] Speech voice recognition software. Grammatical errors, random word insertions, pronoun errors, and incomplete sentences are an occassional consequence of this system due to software limitations, ambient noise, and hardware issues. Any formal questions or concerns about the content, text, or information contained within the body of this dictation should be directly addressed to the physician certified pathology assistant for clarification. Impression & Plan Nausea, vomiting and diarrhea, Acute dehydration, Abdominal pain, acute Discharge Plan Visit Data Chief Complaint: Vomiting Stated Complaint: DECREASED PO INTAKE, VOMITTING ED Provider: Young Schultz ED Midlevel Provider: Alyssa Riggins Discharge Problem: Nausea, vomiting and diarrhea, Acute dehydration, Abdominal pain, acute Patient Disposition: Being Evaluated by Hospitalist Condition: Good Forms Stand Alone Forms: My [facility] Prescriptions Prescriptions: No Action atorvastatin 80 mg tablet 80 mg PO HS aspirin [Jose G Low Dose Aspirin] 81 mg Tablet,Delayed Release (Dr/Ec) 81 mg PO HS acetaminophen [Acetaminophen Extra Strength] 500 mg Tablet 1,000 mg PO TID PRN (Reason: Pain, Mild) isosorbide mononitrate 60 mg tablet extended release 24 hr 60 mg PO QAM pantoprazole 40 mg tablet,delayed release (DR/EC) 40 mg PO DAILYBB metoprolol succinate 100 mg tablet extended release 24 hr 100 mg PO QAM Rx Instructions: TOTAL DOSE 125 MG--TAKES WITH 25 MG TAB. metoprolol succinate 25 mg tablet extended release 24 hr 25 mg PO QAM Rx Instructions: TOTAL DOSE 125 MG--TAKES WITH 100 MG TAB. metformin 500 mg tablet extended release 24 hr 1,000 mg PO QAM insulin glargine [Lantus Solostar U-100 Insulin] 100 unit/mL (3 mL) insulin pen 50 unit SUBCUT HS cyanocobalamin (vitamin B-12) 1,000 mcg Tablet 1,000 mcg PO DAILY nitroglycerin [Nitrostat] 0.4 mg Tablet, Sublingual 0.4 mg sublingual DIRECTED PRN (Reason: Chest Pain) ezetimibe 10 mg tablet 10 mg PO DAILY magnesium oxide 400 mg magnesium Capsule 400 mg PO BID venlafaxine 75 mg capsule,extended release 24hr 75 mg PO AMHS amlodipine 5 mg Tablet 5 mg PO DAILY venlafaxine 37.5 mg tablet 37.5 mg PO QDL lisinopril 2.5 mg tablet 2.5 mg PO QAM cholecalciferol (vitamin D3) [Vitamin D3] 25 mcg (1,000 unit) Capsule 0 mcg PO DAILY Rx Instructions: PT UNSURE OF STRENGTH Ozempic 1 mg/dose (4 mg/3 mL) Pen Injector 1 mg SUBCUT WK Rx Instructions: WEDNESDAYS Referrals Referrals: Kane Soriano MD [Outside Practitioners] -
[2023-06-20 22:44] LABS: HCO3 VBG 27 mmol/L; Oxygen Saturation VBG < 60.0 %; PCO2 VBG 45 mmHg (38-50); PO2 VBG 27 mmHg; pH VBG 7.38 (7.36-7.41)
[2023-06-20 22:47] LABS: Basophils # (auto) 0.06 K/uL (0-0.2); Basophils % (auto) 0.7 %; Eosinophils # (auto) 0.24 K/uL (0-0.50); Eosinophils % (auto) 2.7 %; Hematocrit (blood only) 49.8 % (37.0-47.0); Hemoglobin 16.8 g/dl (12.0-16.0); Immature Granulocytes # (auto) 0.03 K/uL (0.01-0.20); Immature Granulocytes % (auto) 0.3 %; Lymphocytes # (auto) 2.74 K/uL (1.2-3.4); Lymphocytes % (auto) 31.3 %; Mean Corpuscular Hemoglobin 30.5 pg (25.0-34.0); Mean Corpuscular Hgb Conc 33.7 g/dL (32.0-36.0); Mean Corpuscular Volume 90.4 fL (80.0-100.0); Mean Platelet Volume 10.9 fL (9.4-12.4); Monocytes # (auto) 0.74 K/uL (0.11-0.59); Monocytes % (auto) 8.4 %; Neutrophils # (auto) 4.95 K/uL (1.40-6.50); Neutrophils % (auto) 56.6 %; Platelet Count 276 K/uL (130-400); RDW Coefficient of Variation 12.2 % (11.5-14.5); RDW Standard Deviation 40.5 fL (36.4-46.3); Red Blood Count 5.51 M/uL (4.20-5.40); White Blood Count 8.76 K/ul (4.8-10.8)
[2023-06-20 22:48] LABS: iSTAT Creatinine 0.6 mg/dl (0.6-1.3); iSTAT Hemoglobin 18.4 g/dl (12.0-16.0); iSTAT Ionized Calcium 1.24 mmol/l (1.12-1.32); iSTAT Potassium 3.6 mmol/L (3.3-5.0)
[2023-06-20] MEDS ORDERED: OPTIRAY 320 100ml IV ONE (22:59)
[2023-06-20 23:03] LABS: Albumin Globulin Ratio 1.2 (0.9-2); Albumin Level 4.5 gm/dl (3.4-5.0); BUN Creatinine Ratio 16.9 (10-20); Bilirubin,Total 0.6 mg/dl (0.2-1.0); Calcium 9.9 mg/dl (8.6-10.3); Creatinine Clr Calc Pharmacy 54.2 ml/min; Est GFR (African American) 82.2 ml/min; Est GFR (Non-African American) 70.9 ml/min; Globulin 3.7 gm/dl (2.5-4.0); Magnesium 1.7 mg/dl (1.7-2.4); Potassium 3.7 mmol/L (3.5-5.1); Total Protein 8.2 gm/dl (6.0-8.3)
[2023-06-20 23:09] LABS: Troponin I High Sensitivity 4.5 pg/ml (0-14)
[2023-06-20] MEDS ORDERED: SODIUM CHLORIDE 0.9% 1000ML 500 ML IV ONE (23:15)
[2023-06-20] MEDS ORDERED: ACETAMINOPHEN 1,000 MG/100 ML VIAL IV STA (23:37)
[2023-06-20 23:51] LABS: Appearance Urine Clear (Clear); Bilirubin Urine Negative (Negative); Blood Urine Negative (Negative); Color Urine Yellow; Glucose Urine UA 3+ (Negative); Ketones Urine 1+ (Negative); Leukocyte Esterase Urine Negative (Negative); Nitrite Urine Negative (Negative); Protein Urine Negative (Negative); Specific Gravity Urine > 1.045 (1.000-1.030); Urobilinogen Urine Negative (Negative); pH Urine 5.5 (4.5-7.5)
--- NOTE | 2023-06-21 01:18 | CT Scan Report ---
Exam(s): CT ABDOMEN + PELVIS With Contrast IV Amt: 93 cc's EXAM: CT Abdomen and Pelvis With Intravenous Contrast CLINICAL HISTORY: Reason for exam: mid abd pain. TECHNIQUE: Axial computed tomography images of the abdomen and pelvis with intravenous contrast. CTDI is 24.55 mGy and DLP is 1186.5 mGy-cm. Automated exposure control was utilized for the study. A dose lowering technique was utilized adhering to the principles of ALARA. CONTRAST: Patient received 93 cc's of IV contrast COMPARISON: No relevant prior studies available. FINDINGS: Lung bases: Unremarkable. No mass. No consolidation. ABDOMEN: Liver: Hepatic steatosis. Gallbladder and bile ducts: Unremarkable. No calcified stones. No ductal dilation. Pancreas: Unremarkable. No mass. No ductal dilation. Spleen: Unremarkable. No splenomegaly. Adrenals: Unremarkable. No mass. Kidneys and ureters: Unremarkable. No hydronephrosis or delayed nephrogram. Stomach and bowel: Diverticulosis, without acute diverticulitis. No small bowel obstruction. No free intraperitoneal air. PELVIS: Appendix: Normal appendix. Bladder: Decompressed urinary bladder. Reproductive: Unremarkable as visualized. ABDOMEN and PELVIS: Intraperitoneal space: Unremarkable. No free air. No significant fluid collection. Bones/joints: Degenerative changes of the spine. No acute fracture. No dislocation. Soft tissues: Bilateral breast implants. Vasculature: Atherosclerotic changes of the aorta. No abdominal aortic aneurysm. Lymph nodes: Unremarkable. No enlarged lymph nodes. IMPRESSION: 1. No hydronephrosis or delayed nephrogram. 2. Diverticulosis, without acute diverticulitis. No small bowel obstruction. No free intraperitoneal air. Electronically signed by: Yoseph Jones MD 06/21/23 01:17 AM
[2023-06-21] MEDS ORDERED: NSS + 20MEQ KCL 20 MEQ/1,000 ML BAG IV STA (01:47)
[2023-06-21] MEDS ORDERED: LANTUS PER UNIT CHARGE SQ STA (02:19)
--- NOTE | 2023-06-21 02:21 | History & Physical Report ---
Date of Service June 21, 2023 Assessment & Plan (1) Acute gastroenteritis: Plan: Possible Ozempic adverse reaction Rule out infectious causes for diarrheal illness hx CAD status post CABG hx PSVT hypertension, stable hyperlipidemia on statin Rx DM2 insulin requiring, suboptimal control as of recent outpatient hemoglobin A1c of 12.2 last month hx NAFLD R breast cancer status post surgery/chemoradiation/history of BRCA gene mutation, follow-up breast reconstructive procedures deferred until DM better controlled as per outpatient notes anxiety/mood disorder, patient noted to be mildly anxious during exam past tobacco abuse OBS GMF Supportive management for presumptive viral gastroenteritis Stool C. difficile, CS Defer decision regarding future Ozempic doses to patient's PCP given possible ADR Anxiolytic as needed Basal bolus insulin adjusted for clear liquid diet for now, ISS BG goal 1 10-1 40, carb count coverage DVT prophylaxis per Lovenox subcu Full code Text document was generated using [employer] voice recognition software. It may contain grammatical or spelling errors. Kindly contact undersigned for clarification of any documentation item in question. History of Present Illness Chief Complaint: Abdominal pain, nausea, vomiting, diarrhea Primary Care Provider: Mell Ramos MD History obtained from patient and records. Medical history significant for CAD status post CABG, PSVT, hypertension, hyperlipidemia, DM2 insulin requiring, NAFLD, history of C. difficile colitis, right breast cancer status post surgery/chemoradiation, history of BRCA gene mutation, anxiety/mood disorder, past tobacco abuse. Last confinement 2019 under psychiatry service for major depression. Patient received first dose of Ozempic outpatient 3 days ago. Patient later noted achy upper abdominal pain with nausea, vomiting, watery diarrhea symptoms. No fever, no chills. No chest pain. Usual SOB on exertion which prompted an outpatient nuclear stress test last month which turned out to be negative. No recent antibiotic Rx, out-of-town travel, sick contacts. Patient uncomfortable going home from the ER. 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, vascular device placement, LAURO Family History : Lymphoma, DM, heart disease Personal/Social history : Past tobacco abuse, no EtOH intake, retired [employer] Allergies Allergy/AdvReac Type Severity Reaction Status Date / Time cefuroxime Allergy Intermediate HIVES Verified 06/20/23 23:32 Influenza Virus Vaccines Allergy Intermediate SORES ALL Verified 06/21/23 01:48 OVER FACE AND IN MOUTH empagliflozin AdvReac Intermediate YEAST Verified 06/20/23 23:32 [From Jardiance] INFECTION glimepiride AdvReac Intermediate FREQUENT Verified 06/20/23 23:32 HYPOGLYCEMIA Home Medications Medication Instructions Recorded Confirmed Type acetaminophen 500 mg tablet 1,000 mg PO TID PRN Pain, Mild 08/31/20 06/20/23 History (Acetaminophen Extra Strength) aspirin 81 mg tablet,delayed 81 mg PO HS 08/31/20 06/20/23 History release (Jose G Low Dose Aspirin) atorvastatin 80 mg tablet 80 mg PO HS 08/31/20 06/20/23 History cyanocobalamin (vitamin B-12) 1,000 mcg PO DAILY 08/31/20 06/20/23 History 1,000 mcg tablet insulin glargine 100 unit/mL (3 50 unit subcut HS 08/31/20 06/20/23 History mL) subcutaneous pen (Lantus Solostar U-100 Insulin) isosorbide mononitrate 60 mg 60 mg PO QAM 08/31/20 06/20/23 History tablet,extended release 24 hr metformin 500 mg tablet,extended 1,000 mg PO QAM 08/31/20 06/20/23 History release 24 hr metoprolol succinate 100 mg 100 mg PO QAM 08/31/20 06/20/23 History tablet,extended release 24 hr metoprolol succinate 25 mg 25 mg PO QAM 08/31/20 06/20/23 History tablet,extended release 24 hr pantoprazole 40 mg tablet,delayed 40 mg PO DAILYBB 08/31/20 06/20/23 History release ezetimibe 10 mg tablet 10 mg PO DAILY 11/18/21 06/20/23 History magnesium oxide 400 mg PO BID 11/18/21 06/20/23 History nitroglycerin 0.4 mg sublingual 0.4 mg sublingual DIRECTED PRN 11/18/21 06/20/23 History tablet (Nitrostat) Chest Pain venlafaxine 75 mg capsule,extended 75 mg PO AMHS 11/18/21 06/20/23 History release 24 hr amlodipine 5 mg tablet 5 mg PO DAILY 06/20/23 06/20/23 History cholecalciferol (vitamin D3) 25 0 mcg PO DAILY 06/20/23 06/20/23 History mcg (1,000 unit) capsule (Vitamin D3) lisinopril 2.5 mg tablet 2.5 mg PO QAM 06/20/23 06/20/23 History semaglutide 1 mg/dose (4 mg/3 mL) 1 mg subcut WK 06/20/23 06/20/23 History subcutaneous pen injector (Ozempic) venlafaxine 37.5 mg tablet 37.5 mg PO QDL 06/20/23 06/20/23 History Past Med/Surg History Medical History Breast cancer RT BREAST (SURGERY WITH CHEMO AND RADIATION) CAD (coronary artery disease) "06/2016 - 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 to cardiac cath on 07/09/16 that showed 90% ostial RCA stenosis s/p stenting" Depression DM type 2 (diabetes mellitus, type 2) Dyslipidemia Generalized anxiety disorder GERD (gastroesophageal reflux disease) HTN (hypertension) Myocardial Infarction JANUARY 2018 Peripheral neuropathy PTSD (post-traumatic stress disorder) Temporomandibular joint disorder Surgical History History of appendectomy History of bilateral mastectomy WITH RECONSTRUCTION History of dilatation and curettage History of heart artery stent 3 STENTS PLACED TOTAL IN THE PAST (2 YEARS AGO) FOLLOWS WITH C[facility]IOLOG[facility] History of right cataract surgery History of tonsillectomy History of total hysterectomy History of vascular access device PORT INSERTION AND REMOVAL S/P CABG x 21 JANUARY 2018 [facility] Family History Uncle Family history of diabetes mellitus Social History Smoking Status: Former smoker Tobacco Type: Cigarettes Second Hand Exposure: Yes; Do You Dip or Chew Tobacco: No; Tobacco Cessation Education Requested by Patient: No Hx Alcohol Use: No Hx Substance Use: No Preferred Language: Mosotho Communication Ability: Effective News Broadcaster Required: No Beliefs That Will Affect Care: None marital status: Single Current Living Situation: Alone current occupational status: retired Other Information That Helps Us Care for You: No Feels Safe at Home: Yes Safety Concerns: Feels Safe At This Time Assistive Devices: Denture - Upper and Glasses Review of Systems Review of Systems: As per HPI, all other systems reviewed and negative Physical Exam Physical Exam: GENERAL: Comfortable, pleasant, obese, slightly anxious, no respiratory distress SKIN: Normal color, warm HEENT: [place] palpebral conjunctivae, no ptosis, dry buccal mucosa NECK : Supple, short neck, no tenderness CHEST : CTA, no tenderness HEART : RRR, no obvious murmurs ABDOMEN: Some distention, epigastric tenderness EXTREMITIES : Minimal LE swelling, no LE tenderness, no other conspicuous deformities noted NEUROLOGIC : Coherent, no facial asymmetry, no other gross focality Results & Data Results & Data Vital Signs (Past 12 Hours) Vital Signs Temp Pulse Resp BP Pulse Ox O2 Del Method 06/21/23 02:00 87 19 93 06/21/23 01:30 73 21 96 06/21/23 01:00 70 15 94 06/21/23 00:30 78 14 116/83 95 06/21/23 00:00 81 18 157/78 H 97 06/20/23 23:43 87 19 169/91 H 100 06/20/23 23:30 88 19 97 06/20/23 23:05 84 17 163/79 H 98 06/20/23 22:30 74 16 97 Room Air 06/20/23 22:21 74 14 98 Room Air 06/20/23 22:07 36.8 C 87 18 149/75 H 98 Room Air Laboratory Results Laboratory Results WBC 8.76 K/ul (4.8-10.8) 06/20/23 22:30 RBC 5.51 M/uL (4.20-5.40) H 06/20/23 22:30 Hgb 16.8 g/dl (12.0-16.0) H 06/20/23 22:30 POC Hgb 18.4 g/dl (12.0-16.0) H 06/20/23 22:36 Hct 49.8 % (37.0-47.0) H 06/20/23 22:30 POC Hct 54 % (37-47) H 06/20/23 22:36 MCV 90.4 fL (80.0-100.0) 06/20/23 22:30 MCH 30.5 pg (25.0-34.0) 06/20/23 22:30 MCHC 33.7 g/dL (32.0-36.0) 06/20/23 22: RDW Std Deviation 40.5 fL (36.4-46.3) 06/20/23 22: RDW Coeff of [place] 12.2 % (11.5-14.5) 06/20/23 22: Plt Count 276 K/uL (130-400) 06/20/23 22: MPV 10.9 fL (9.4-12.4) 06/20/23 22:30 Immature Gran % (Auto) 0.3 % 06/20/23 22:30 Neut % (Auto) 56.6 % 06/20/23 22:30 Lymph % (Auto) 31.3 % 06/20/23 22:30 [place] % (Auto) 8.4 % 06/20/23 22: Eos % (Auto) 2.7 % 06/20/23 22:30 Baso % (Auto) 0.7 % 06/20/23 22:30 Neut # (Auto) 4.95 K/uL (1.40-6.50) 06/20/23 22:30 Lymph # (Auto) 2.74 K/uL (1.2-3.4) 06/20/23 22:30 [place] # (Auto) 0.74 K/uL (0.11-0.59) H 06/20/23 22:30 Eos # (Auto) 0.24 K/uL (0-0.50) 06/20/23 22: Baso # (Auto) 0.06 K/uL (0-0.2) 06/20/23 22: Immature Gran # (Auto) 0.03 K/uL (0.01-0.20) 06/20/23 22:30 VBG pH 7.38 (7.36-7.41) 06/20/23 22: VBG pCO2 45 mmHg (38-50) 06/20/23 22:30 VBG pO2 27 mmHg 06/20/23 22:30 VBG HCO3 27 mmol/L 06/20/23 22:30 VBG O2 Saturation < 60.0 % 06/20/23 22:30 VBG Base Excess 1.0 mEq/L 06/20/23 22:30 POC Sodium 139 mmol/L (135-144) 06/20/23 22:36 Sodium 137 mmol/L (136-145) 06/20/23 22:30 POC Potassium 3.6 mmol/L (3.3-5.0) 06/20/23 22:36 Potassium 3.7 mmol/L (3.5-5.1) 06/20/23 22:30 POC Chloride 101 mmol/L (101-112) 06/20/23 22:36 Chloride 101 mmol/L (98-107) 06/20/23 22:30 Carbon Dioxide 25 mmol/L (21-32) 06/20/23 22:30 POC Total CO2 24 mmol/L (24-31) 06/20/23 22:36 Anion Gap 11 (3-11) 06/20/23 22:30 POC Anion Gap 18.0 mmol/L (16-25) 06/20/23 22:36 POC BUN 14 mg/dl (7-18) 06/20/23 22:36 BUN 14 mg/dl (6-23) 06/20/23 22:30 Creatinine 0.83 mg/dl (0.6-1.2) 06/20/23 22:30 POC Creatinine 0.6 mg/dl (0.6-1.3) 06/20/23 22:36 Est Cr Clr Drug Dosing 54.2 ml/min 06/20/23 22:30 Est GFR ( Amer) 82.2 ml/min 06/20/23 22:30 Est GFR (Non-Af Amer) 70.9 ml/min 06/20/23 22:30 BUN/Creatinine Ratio 16.9 (10-20) 06/20/23 22:30 Glucose 236 mg/dl (70-99(Fasting)) H 06/20/23 22:30 POC Glucose 222 mg/dl (70-99) H 06/20/23 22:14 POC Glucose (other) 247 mg/dl (70-99) H 06/20/23 22:36 Lactate 1.6 mmol/L (0.4-2.0) 06/20/23 22:30 Calcium 9.9 mg/dl (8.6-10.3) 06/20/23 22:30 POC Ioniz Calcium [place] 1.24 mmol/l (1.12-1.32) 06/20/23 22:36 Magnesium 1.7 mg/dl (1.7-2.4) 06/20/23 22:30 Total Bilirubin 0.6 mg/dl (0.2-1.0) 06/20/23 22:30 AST 69 U/L (13-39) H 06/20/23 22:30 ALT 53 U/L (7-52) H 06/20/23 22:30 Alkaline Phosphatase 84 U/L (34-104) 06/20/23 22:30 Troponin I High Sens 4.5 pg/ml (0-14) 06/20/23 22:30 Total Protein 8.2 gm/dl (6.0-8.3) 06/20/23 22:30 Albumin 4.5 gm/dl (3.4-5.0) 06/20/23 22:30 Globulin 3.7 gm/dl (2.5-4.0) 06/20/23 22:30 Albumin/Globulin Ratio 1.2 (0.9-2) 06/20/23 22:30 Lipase 12 U/L (11-82) 06/20/23 22:30 Urine Color Yellow 06/20/23 23:40 Urine Appearance Clear (Clear) 06/20/23 23:40 Urine pH 5.5 (4.5-7.5) 06/20/23 23:40 Ur Specific [place] > 1.045 (1.000-1.030) H 06/20/23 23:40 Urine Protein Negative (Negative) 06/20/23 23:40 Urine Glucose (UA) 3+ (Negative) H 06/20/23 23:40 Urine Ketones 1+ (Negative) H 06/20/23 23:40 Urine Blood Negative (Negative) 06/20/23 23:40 Urine Nitrite Negative (Negative) 06/20/23 23:40 Urine Bilirubin Negative (Negative) 06/20/23 23:40 Urine Urobilinogen Negative (Negative) 06/20/23 23:40 Ur Leukocyte Esterase Negative (Negative) 06/20/23 23:40 Impressions Abdomen/Pelvis CT 06/20/23 22:19 Exam(s): CT ABDOMEN + PELVIS With Contrast IV Amt: 93 cc's EXAM: CT Abdomen and Pelvis With Intravenous Contrast CLINICAL HISTORY: Reason for exam: mid abd pain. TECHNIQUE: Axial computed tomography images of the abdomen and pelvis with intravenous contrast. CTDI is 24.55 mGy and DLP is 1186.5 mGy-cm. Automated exposure control was utilized for the study. A dose lowering technique was utilized adhering to the principles of ALARA. CONTRAST: Patient received 93 cc's of IV contrast COMPARISON: No relevant prior studies available. FINDINGS: Lung bases: Unremarkable. No mass. No consolidation. ABDOMEN: Liver: Hepatic steatosis. Gallbladder and bile ducts: Unremarkable. No calcified stones. No ductal dilation. Pancreas: Unremarkable. No mass. No ductal dilation. Spleen: Unremarkable. No splenomegaly. Adrenals: Unremarkable. No mass. Kidneys and ureters: Unremarkable. No hydronephrosis or delayed nephrogram. Stomach and bowel: Diverticulosis, without acute diverticulitis. No small bowel obstruction. No free intraperitoneal air. PELVIS: Appendix: Normal appendix. Bladder: Decompressed urinary bladder. Reproductive: Unremarkable as visualized. ABDOMEN and PELVIS: Intraperitoneal space: Unremarkable. No free air. No significant fluid collection. Bones/joints: Degenerative changes of the spine. No acute fracture. No dislocation. Soft tissues: Bilateral breast implants. Vasculature: Atherosclerotic changes of the aorta. No abdominal aortic aneurysm. Lymph nodes: Unremarkable. No enlarged lymph nodes. IMPRESSION: 1. No hydronephrosis or delayed nephrogram. 2. Diverticulosis, without acute diverticulitis. No small bowel obstruction. No free intraperitoneal air. Electronically signed by: Yoseph Jones MD 06/21/23 01:17 AM Diagnostic Findings Chest x-ray per my interpretation, elevated right hemidiaphragm, no congestion EKG as per my interpretation : Rate 80, NSR, normal axis, T wave abnormalities septal leads
[2023-06-21] MEDS ORDERED: LORazepam 0.5 MG TAB PO PRN (02:26)
[2023-06-21] MEDS ORDERED: oxyCODONE HCL IR 5 MG TAB (IMMEDIATE RELEASE) PO PRN (02:26)
[2023-06-21] MEDS ORDERED: MoRPHine SULFATE 4 MG/ML 1 ML CARP\\VIAL IV PRN (02:26)
[2023-06-21] MEDS ORDERED: PROMETHAZINE HCL 12.5 MG in SODIUM CHLORIDE 0.9% 50 ML IV PRN (02:26)
[2023-06-21] MEDS ORDERED: ACETAMINOPHEN 500 MG TAB PO PRN (02:27)
[2023-06-21 03:13] LABS: D Dimer 430 ug/L FEU (0-500); Partial Thromboplastin Ratio 0.8; Partial Thromboplastin Time 22.4 Seconds (21.0-31.0)
[2023-06-21] MEDS ORDERED: CARBOHYDRATES FOR HYPOGLYCEMIA PO PRN (04:18)
[2023-06-21] MEDS ORDERED: DEXTROSE 50% 50 ML SYRINGE IV PRN (04:18)
[2023-06-21] MEDS ORDERED: GLUCOSE 10 TAB/TUBE PO PRN (04:18)
[2023-06-21] MEDS ORDERED: GLUCAGON FOR INJ 1 MG VIAL SQ PRN (04:18)
[2023-06-21] MEDS ORDERED: GLUCOSE 40% GEL 15 GM TUBE PO PRN (04:18)
[2023-06-21] MEDS: INSULIN ASPART PER UNIT CHARGE SC SCH ×4 (05:15→22:09)
[2023-06-21] MEDS: PANTOprazole 40 MG TAB PO SCH (05:17)
[2023-06-21 07:21] LABS: Basophils # (auto) 0.05 K/uL (0-0.2); Basophils % (auto) 0.8 %; Eosinophils # (auto) 0.22 K/uL (0-0.50); Eosinophils % (auto) 3.4 %; Hematocrit (blood only) 43.2 % (37.0-47.0); Hemoglobin 14.7 g/dl (12.0-16.0); Immature Granulocytes # (auto) 0.02 K/uL (0.01-0.20); Immature Granulocytes % (auto) 0.3 %; Lymphocytes # (auto) 2.54 K/uL (1.2-3.4); Mean Corpuscular Hemoglobin 30.7 pg (25.0-34.0); Mean Corpuscular Volume 90.2 fL (80.0-100.0); Mean Platelet Volume 11.5 fL (9.4-12.4); Monocytes % (auto) 10.7 %; Neutrophils # (auto) 2.99 K/uL (1.40-6.50); Neutrophils % (auto) 45.8 %; Platelet Count 232 K/uL (130-400); RDW Coefficient of Variation 12.4 % (11.5-14.5); RDW Standard Deviation 41.2 fL (36.4-46.3); Red Blood Count 4.79 M/uL (4.20-5.40); White Blood Count 6.52 K/ul (4.8-10.8)
[2023-06-21 07:37] LABS: BUN Creatinine Ratio 19.4 (10-20); Calcium 8.9 mg/dl (8.6-10.3); Creatinine Clr Calc Pharmacy 68.1 ml/min; Est GFR (African American) 102.5 ml/min; Est GFR (Non-African American) 88.4 ml/min; Potassium 3.5 mmol/L (3.5-5.1)
--- NOTE | 2023-06-21 07:51 | XRay Report ---
XR chest 1V portable HISTORY: Shortness of breath. COMPARISON: Chest 11/18/2021. FINDINGS: No pneumothorax. No pleural effusions. The lungs are clear. The heart is normal in size. Th ere is mild elevation of the right hemidiaphragm, unchanged. Poststernotomy changes are again noted. There are calcifications within the aortic knob. Surgical clips within the right axilla. No evidence for pulmonary edema. IMPRESSION: No significant change compared to the prior study. No acute process. ACT 112: Negative or not required by law. Electronically signed by: Reynaldo Bettencourt M.D. 06/21/2023 7:50 AM
[2023-06-21] MEDS: VENLAFAXINE HCL 37.5 MG TAB PO SCH (08:40)
[2023-06-21] MEDS: ISOSORBIDE MONO EXTENDED REL 60 MG TABCR PO SCH (08:40)
[2023-06-21] MEDS: lisinopril 2.5 MG TAB PO SCH (08:40)
[2023-06-21] MEDS: amLODIPine BESYLATE 5 MG TAB PO SCH (08:40)
[2023-06-21] MEDS: METOPROLOL SUCC 25MG EXT REL TAB PO SCH (08:40)
[2023-06-21] MEDS: EZETIMIBE 10 MG TABLET PO SCH (08:40)
[2023-06-21] MEDS: METOPROLOL SUCC 50MG EXT REL TAB PO SCH (08:40)
[2023-06-21] MEDS: CYANOCOBALAMIN (B-12) 500 MCG TABLET PO SCH (08:40)
[2023-06-21] MEDS: ENOXAPARIN INJ 40 MG/0.4 ML SYR SQ SCH (08:41)
[2023-06-21] MEDS: VENLAFAXINE HCL XR 75 MG CAPXR PO SCH ×2 (08:42→22:07)
--- NOTE | 2023-06-21 11:20 | CT Scan Report ---
CT chest diagnostic wo con CT DOSE: 600.93 mGy.cm HISTORY: Assess for chest wall abscess. chest pain H/O R breast Reconstruction R/O abscess TECHNIQUE: Multiaxial CT images of the chest were performed without contrast. A dose lowering techni que was utilized adhering to the principles of ALARA. COMPARISON: Chest CTA 08/25/2019. Abdomen and pelvis CT 06/20/2023. FINDINGS: No significant skin thickening or subcutaneous fat stranding within the chest wall/breast t o suggest an infectious process. Bilateral implants are noted. There is a partially calcified capsule within the right breast implant with minimal adjacent fluid. This may represent an intracapsular rup ture of the implant. This remains unchanged. The left implant appears intact. No loculated fluid maeve ections to suggest an abscess. Limited views of the upper abdomen demonstrate a normal liver, spleen, and adrenal glands. Normal esophagus. Calcified plaque within the normal caliber thoracic aorta. The heart is normal in size. No pleural or pericardial effusions. There are poststernotomy changes. No a cute fractures identified. No mediastinal or hilar lymphadenopathy. The central airways are patent. N o pneumothorax. A few small bibasilar linear densities favor subsegmental atelectasis are scarring. O therwise, no focal lung consolidations to suggest a pneumonia. No evidence for pulmonary edema. Mild subpleural reticulation at the right upper lobe favors posttreatment changes. This remains stable. IMPRESSION: 1. No evidence for a chest wall abscess. 2. No focal lung consolidations to suggest a pneumonia. 3. There is a partially calcified capsule within the right breast implant with minimal adjacent fluid deep to the capsule between the implant. This may represent an intracapsular rupture of the implant. This remains unchanged. ACT 112: Negative or not required by law. Electronically signed by: Reynaldo Bettencourt M.D. 06/21/2023 11:17 AM
--- NOTE | 2023-06-21 13:58 | Electrocardiogram Report ---
Test Reason : Blood Pressure : / mmHG Vent. Rate : 078 BPM Atrial Rate : 078 BPM P-R Int : 144 ms QRS Dur : 084 ms QT Int : 378 ms P-R-T Axes : 055 039 076 degrees QTc Int : 430 ms Normal sinus rhythm Poor R wave progression, consider anterior VA vs. lead placement vs. LVH Abnormal ECG When compared with ECG of 18-NOV-2021 23:35, No significant change was found Confirmed by Dennis Valencia ([id number]) on 06/21/2023 1:58:19 PM Referred By: REFERRED SELF Confirmed By:Dennis Valencia
--- NOTE | 2023-06-21 14:17 | Hospitalist Progress Note ---
Date of Service June 21, 2023 Assessment & Plan (1) Acute gastroenteritis: Plan: Diarrhea Likely due to Ozempic Rule out infectious Gastroenteritis Stool studies pending Ozempic held Right Breast Pain Possible rupture of the implant --CT chest:No evidence for a chest wall abscess. No focal lung consolidations to suggest a pneumonia. There is a partially calcified capsule within the right breast implant with minimal adjacent fluid deep to the capsule between the implant. This may represent an intracapsular rupture of the implant. This remains unchanged. Pain control Plastic Surgery consulted NPO after midnight for possible procedure CAD S/P CABG PSVT Continue aspirin, Lipitor, isosorbide, metoprolol Hypertension Continue home medications Monitor BP Hyperlipidemia on statin DM II Last HbA1c 12.2 Continue insulin while hospitalized Monitor BGs H/O NAFLD R breast cancer S/P surgery/chemoradiation/history of BRCA gene mutation Planned for breast reconstructive procedure--deferred until DM better controlled as per outpatient notes Anxiety/mood disorder Past tobacco abuse Continue home meds DVT Px: Lovenox SQ Code Status Full Code Admission and Anticipated Discharge Date Admission Date: June 21, 2023 Subjective Patient is seen and examined at bedside Reports having right breast Implant pain Diarrhea improving Nausea, vomiting much improved Tolerated diet this morning Review of Systems Review of Systems: All systems reviewed & are unremarkable except as noted in Subjective Physical Exam Physical Exam: Physical Exam: Vitals signs as noted above General Appearance:Moderately built and nourished, no apparent distress Head: normocephalic, Atraumatic Eyes: normal inspection, EOMI Neck: supple, Trachea midline Respiratory/Chest: Normal breath sounds, CTA, No accessory muscle use, R breast Implant firm Cardiovascular: S1, S2, No murmur Abdomen/GI:Soft, Non tender, Bowel sounds present Extremities/Musculoskeletal:normal inspection, Trace pedal edema Neurologic/Psych:AAOX3, grossly no focal neurological deficits Skin: normal color, warm Results & Data Results & Data Vital Signs (Past 12 Hours) Vital Signs Temp Pulse Pulse Resp BP BP Pulse Ox 06/21/23 07:18 36.5 C 71 18 169/84 H 98 06/21/23 05:23 06/21/23 05:10 06/21/23 04:27 06/21/23 04:57 36.6 C 18 138/85 98 06/21/23 03:36 67 06/21/23 03:00 66 17 146/79 H 97 06/21/23 02:32 70 20 161/90 H 98 06/21/23 02:30 71 22 99 06/21/23 02:12 79 20 140/98 99 Pulse Ox O2 Del Method O2 Del Method 06/21/23 07:18 Room Air 06/21/23 05:23 98 Room Air 06/21/23 05:10 Room Air 06/21/23 04:27 Room Air 06/21/23 04:57 Room Air 06/21/23 03:36 06/21/23 03:00 06/21/23 02:32 06/21/23 02:30 06/21/23 02:12 Laboratory Results Short CBC 06/20/23 06/21/23 Range/Units 22:30 05:52 WBC 8.76 6.52 (4.8-10.8) K/ul Hgb 16.8 H 14.7 (12.0-16.0) g/dl Hct 49.8 H 43.2 (37.0-47.0) % Plt Count 276 232 (130-400) K/uL BMP 06/20/23 06/21/23 22:30 05:52 Sodium 137 139 Potassium 3.7 3.5 Chloride 101 107 Carbon Dioxide 25 24 BUN 14 13 Creatinine 0.83 0.67 Glucose 236 H 171 H Calcium 9.9 8.9 Liver Function 06/20/23 Range/Units 22:30 Total Bilirubin 0.6 (0.2-1.0) mg/dl AST 69 H (13-39) U/L ALT 53 H (7-52) U/L Alkaline Phosphatase 84 (34-104) U/L Albumin 4.5 (3.4-5.0) gm/dl Urine 06/20/23 Range/Units 23:40 Urine Color Yellow Urine Appearance Clear (Clear) Urine pH 5.5 (4.5-7.5) Ur Specific [place] > 1.045 H (1.000-1.030) Urine Protein Negative (Negative) Urine Glucose (UA) 3+ H (Negative)
[2023-06-21] MEDS ORDERED: ASPIRIN 81 MG ECTAB PO SCH (21:00)
[2023-06-21] MEDS ORDERED: ATORVASTATIN 40 MG TAB PO SCH (21:00)
[2023-06-21] MEDS ORDERED: LANTUS PER UNIT CHARGE SC SCH (21:00)
[2023-06-22] MEDS: PANTOprazole 40 MG TAB PO SCH (05:45)
[2023-06-22 07:14] LABS: Hematocrit (blood only) 40.3 % (37.0-47.0); Hemoglobin 13.5 g/dl (12.0-16.0); Mean Corpuscular Hemoglobin 30.4 pg (25.0-34.0); Mean Corpuscular Hgb Conc 33.5 g/dL (32.0-36.0); Mean Corpuscular Volume 90.8 fL (80.0-100.0); Mean Platelet Volume 11.1 fL (9.4-12.4); Platelet Count 235 K/uL (130-400); RDW Standard Deviation 39.8 fL (36.4-46.3); Red Blood Count 4.44 M/uL (4.20-5.40); White Blood Count 6.29 K/ul (4.8-10.8)
[2023-06-22 07:25] LABS: Potassium 3.8 mmol/L (3.5-5.1)
[2023-06-22 07:26] LABS: BUN Creatinine Ratio 18.8 (10-20); Creatinine Clr Calc Pharmacy 66.2 ml/min; Est GFR (African American) 101.5 ml/min; Est GFR (Non-African American) 87.6 ml/min; Magnesium 1.6 mg/dl (1.7-2.4)
[2023-06-22] MEDS: VENLAFAXINE HCL XR 75 MG CAPXR PO SCH (08:03)
[2023-06-22] MEDS: amLODIPine BESYLATE 5 MG TAB PO SCH (08:03)
[2023-06-22] MEDS: METOPROLOL SUCC 50MG EXT REL TAB PO SCH (08:03)
[2023-06-22] MEDS: EZETIMIBE 10 MG TABLET PO SCH (08:03)
[2023-06-22] MEDS: lisinopril 2.5 MG TAB PO SCH (08:04)
[2023-06-22] MEDS: CYANOCOBALAMIN (B-12) 500 MCG TABLET PO SCH (08:04)
[2023-06-22] MEDS: ISOSORBIDE MONO EXTENDED REL 60 MG TABCR PO SCH (08:04)
[2023-06-22] MEDS: INSULIN ASPART PER UNIT CHARGE SC SCH ×2 (08:04→12:09)
[2023-06-22] MEDS: ENOXAPARIN INJ 40 MG/0.4 ML SYR SQ SCH (08:04)
[2023-06-22] MEDS: METOPROLOL SUCC 25MG EXT REL TAB PO SCH (08:04)
[2023-06-22 08:39] LABS: Estimated Average Glucose 352 mg/dl; Hemoglobin A1C 13.9 % (4.5-5.6)
[2023-06-22] MEDS ORDERED: MAGNESIUM CHLORIDE W/CALCIUM 64MG DELAYED REL TAB PO SCH (10:45)
[2023-06-22] MEDS: VENLAFAXINE HCL 37.5 MG TAB PO SCH (12:09)
--- NOTE | 2023-06-22 14:00 | Hospitalist Progress Note ---
Date of Service June 22, 2023 Assessment & Plan (1) Acute gastroenteritis: Plan: Diarrhea Likely due to Ozempic Rule out infectious Gastroenteritis Stool studies couldn't be obtained as no recurrence of diarrhea Ozempic discontinued for now Right Breast Pain Possible rupture of the implant --CT chest:No evidence for a chest wall abscess. No focal lung consolidations to suggest a pneumonia. There is a partially calcified capsule within the right breast implant with minimal adjacent fluid deep to the capsule between the implant. This may represent an intracapsular rupture of the implant. This remains unchanged. Pain control Discussed with general surgery and plastic surgery on 06/22/23. Suggested no urgent need for surgery and patient can follow-up with plastic surgery as outpatient. CAD S/P CABG PSVT Continue aspirin, Lipitor, isosorbide, metoprolol Hypertension Continue home medications Monitor BP Hyperlipidemia on statin DM II Last HbA1c 12.2 Uncontrolled Continue insulin while hospitalized Monitor BGs Advised to follow up with [facility] as outpatient H/O NAFLD R breast cancer S/P surgery/chemoradiation/history of BRCA gene mutation Planned for breast reconstructive procedure--deferred until DM better controlled as per outpatient notes Anxiety/mood disorder Past tobacco abuse Continue home meds DVT Px: Lovenox SQ Code Status Full Code Disposition Home Admission and Anticipated Discharge Date Admission Date: June 21, 2023 Subjective Patient is seen and examined at bedside States feeling well today No new complaints Right breast Implant pain much improved No recurrence of diarrhea Denies any chest pain, dyspnea, dizziness, abd pain Eager to get discharged Review of Systems Review of Systems: All systems reviewed & are unremarkable except as noted in Subjective Physical Exam Physical Exam: Physical Exam: Vitals signs as noted above General Appearance:Moderately built and nourished, no apparent distress Head: normocephalic, Atraumatic Eyes: normal inspection, EOMI Neck: supple, Trachea midline Respiratory/Chest: Normal breath sounds, CTA, No accessory muscle use, R breast Implant firm Cardiovascular: S1, S2, No murmur Abdomen/GI:Soft, Non tender, Bowel sounds present Extremities/Musculoskeletal:normal inspection, Trace pedal edema Neurologic/Psych:AAOX3, grossly no focal neurological deficits Skin: normal color, warm Results & Data Results & Data Vital Signs (Past 12 Hours) Vital Signs Temp Pulse Resp BP Pulse Ox O2 Del Method 06/22/23 06:08 36.5 C 77 18 136/69 96 Room Air Laboratory Results Short CBC 06/22/23 Range/Units 06:38 WBC 6.29 (4.8-10.8) K/ul Hgb 13.5 (12.0-16.0) g/dl Hct 40.3 (37.0-47.0) % Plt Count 235 (130-400) K/uL BMP 06/22/23 06:38 Sodium 136 Potassium 3.8 Chloride 108 H Carbon Dioxide 22 BUN 13 Creatinine 0.69 Glucose 190 H Calcium 9.0
--- NOTE | 2023-06-22 14:12 | Discharge Summary ---
Date of Service June 22, 2023 Admission HPI Per Admitting Provider History obtained from patient and records. Medical history significant for CAD status post CABG, PSVT, hypertension, hyperlipidemia, DM2 insulin requiring, NAFLD, history of C. difficile colitis, right breast cancer status post surgery/chemoradiation, history of BRCA gene mutation, anxiety/mood disorder, past tobacco abuse. Last confinement 2019 under psychiatry service for major depression. Patient received first dose of Ozempic outpatient 3 days ago. Patient later noted achy upper abdominal pain with nausea, vomiting, watery diarrhea symptoms. No fever, no chills. No chest pain. Usual SOB on exertion which prompted an outpatient nuclear stress test last month which turned out to be negative. No recent antibiotic Rx, out-of-town travel, sick contacts. Patient uncomfortable going home from the ER. Medical History as above Surgical History : Subcutaneous tumor removal from right elbow, breast capsulectomy, breast reconstruction, CABG, panniculectomy, ex lap, bilateral mastectomy, tissue lens dotter placement, vascular device placement, LAURO Family History : Lymphoma, DM, heart disease Personal/Social history : Past tobacco abuse, no EtOH intake, retired [employer] Admission Exam Per Admitting Provider GENERAL: Comfortable, pleasant, obese, slightly anxious, no respiratory distress SKIN: Normal color, warm HEENT: [place] palpebral conjunctivae, no ptosis, dry buccal mucosa NECK : Supple, short neck, no tenderness CHEST : CTA, no tenderness HEART : RRR, no obvious murmurs ABDOMEN: Some distention, epigastric tenderness EXTREMITIES : Minimal LE swelling, no LE tenderness, no other conspicuous deformities noted NEUROLOGIC : Coherent, no facial asymmetry, no other gross focality Principal Diagnosis Diarrhea--Likely due to Ozempic Right breast implant rupture Uncontrolled diabetes mellitus Discharge Data Allergies Allergy/AdvReac Type Severity Reaction Status Date / Time cefuroxime Allergy Intermediate HIVES Verified 06/20/23 23:32 Influenza Virus Vaccines Allergy Intermediate SORES ALL Verified 06/21/23 01:48 OVER FACE AND IN MOUTH empagliflozin AdvReac Intermediate YEAST Verified 06/20/23 23:32 [From Jardiance] INFECTION glimepiride AdvReac Intermediate FREQUENT Verified 06/20/23 23:32 HYPOGLYCEMIA Consultations 06/21/23 01:28 ED Decision to Admit Stat Procedures Performed Laboratory Results WBC 6.29 K/ul (4.8-10.8) 06/22/23 06:38 RBC 4.44 M/uL (4.20-5.40) 06/22/23 06:38 Hgb 13.5 g/dl (12.0-16.0) 06/22/23 06:38 POC Hgb 18.4 g/dl (12.0-16.0) H 06/20/23 22:36 Hct 40.3 % (37.0-47.0) 06/22/23 06:38 POC Hct 54 % (37-47) H 06/20/23 22:36 MCV 90.8 fL (80.0-100.0) 06/22/23 06:38 MCH 30.4 pg (25.0-34.0) 06/22/23 06:38 MCHC 33.5 g/dL (32.0-36.0) 06/22/23 06:38 RDW Std Deviation 39.8 fL (36.4-46.3) 06/22/23 06:38 RDW Coeff of [place] 12.0 % (11.5-14.5) 06/22/23 06:38 Plt Count 235 K/uL (130-400) 06/22/23 06:38 MPV 11.1 fL (9.4-12.4) 06/22/23 06:38 Immature Gran % (Auto) 0.3 % 06/21/23 05:52 Neut % (Auto) 45.8 % 06/21/23 05:52 Lymph % (Auto) 39.0 % 06/21/23 05:52 [place] % (Auto) 10.7 % 06/21/23 05:52 Eos % (Auto) 3.4 % 06/21/23 05:52 Baso % (Auto) 0.8 % 06/21/23 05:52 Neut # (Auto) 2.99 K/uL (1.40-6.50) 06/21/23 05:52 Lymph # (Auto) 2.54 K/uL (1.2-3.4) 06/21/23 05:52 [place] # (Auto) 0.70 K/uL (0.11-0.59) H 06/21/23 05:52 Eos # (Auto) 0.22 K/uL (0-0.50) 06/21/23 05:52 Baso # (Auto) 0.05 K/uL (0-0.2) 06/21/23 05:52 Immature Gran # (Auto) 0.02 K/uL (0.01-0.20) 06/21/23 05:52 APTT 22.4 Seconds (21.0-31.0) 06/21/23 02:25 PTT Ratio 0.8 06/21/23 02:25 D-Dimer 430 ug/L FEU (0-500) 06/21/23 02:25 VBG pH 7.38 (7.36-7.41) 06/20/23 22:30 VBG pCO2 45 mmHg (38-50) 06/20/23 22:30 VBG pO2 27 mmHg 06/20/23 22:30 VBG HCO3 27 mmol/L 06/20/23 22:30 VBG O2 Saturation < 60.0 % 06/20/23 22:30 VBG Base Excess 1.0 mEq/L 06/20/23 22:30 POC Sodium 139 mmol/L (135-144) 06/20/23 22:36 Sodium 136 mmol/L (136-145) 06/22/23 06:38 POC Potassium 3.6 mmol/L (3.3-5.0) 06/20/23 22:36 Potassium 3.8 mmol/L (3.5-5.1) 06/22/23 06:38 POC Chloride 101 mmol/L (101-112) 06/20/23 22:36 Chloride 108 mmol/L (98-107) H 06/22/23 06:38 Carbon Dioxide 22 mmol/L (21-32) 06/22/23 06:38 POC Total CO2 24 mmol/L (24-31) 06/20/23 22:36 Anion Gap 6 (3-11) 06/22/23 06:38 POC Anion Gap 18.0 mmol/L (16-25) 06/20/23 22:36 POC BUN 14 mg/dl (7-18) 06/20/23 22:36 BUN 13 mg/dl (6-23) 06/22/23 06:38 Creatinine 0.69 mg/dl (0.6-1.2) 06/22/23 06:38 POC Creatinine 0.6 mg/dl (0.6-1.3) 06/20/23 22:36 Est Cr Clr Drug Dosing 66.2 ml/min 06/22/23 06:38 Est GFR ( Amer) 101.5 ml/min 06/22/23 06:38 Est GFR (Non-Af Amer) 87.6 ml/min 06/22/23 06:38 BUN/Creatinine Ratio 18.8 (10-20) 06/22/23 06:38 Glucose 190 mg/dl (70-99(Fasting)) H 06/22/23 06:38 POC Glucose 225 mg/dl (70-99) H 06/22/23 11:38 POC Glucose (other) 247 mg/dl (70-99) H 06/20/23 22:36 Estimat Average Glucose 352 mg/dl 06/22/23 06:38 Hemoglobin A1c 13.9 % (4.5-5.6) H 06/22/23 06:38 Lactate 1.6 mmol/L (0.4-2.0) 06/20/23 22:30 Calcium 9.0 mg/dl (8.6-10.3) 06/22/23 06:38 POC Ioniz Calcium [place] 1.24 mmol/l (1.12-1.32) 06/20/23 22:36 Magnesium 1.6 mg/dl (1.7-2.4) L 06/22/23 06:38 Total Bilirubin 0.6 mg/dl (0.2-1.0) 06/20/23 22:30 AST 69 U/L (13-39) H 06/20/23 22:30 ALT 53 U/L (7-52) H 06/20/23 22:30 Alkaline Phosphatase 84 U/L (34-104) 06/20/23 22:30 Troponin I High Sens 3.9 pg/ml (0-14) 06/21/23 02:30 Total Protein 8.2 gm/dl (6.0-8.3) 06/20/23 22:30 Albumin 4.5 gm/dl (3.4-5.0) 06/20/23 22:30 Globulin 3.7 gm/dl (2.5-4.0) 06/20/23 22:30 Albumin/Globulin Ratio 1.2 (0.9-2) 06/20/23 22:30 Lipase 12 U/L (11-82) 06/20/23 22:30 Urine Color Yellow 06/20/23 23:40 Urine Appearance Clear (Clear) 06/20/23 23:40 Urine pH 5.5 (4.5-7.5) 06/20/23 23:40 Ur Specific [place] > 1.045 (1.000-1.030) H 06/20/23 23:40 Urine Protein Negative (Negative) 06/20/23 23:40 Urine Glucose (UA) 3+ (Negative) H 06/20/23 23:40 Urine Ketones 1+ (Negative) H 06/20/23 23:40 Urine Blood Negative (Negative) 06/20/23 23:40 Urine Nitrite Negative (Negative) 06/20/23 23:40 Urine Bilirubin Negative (Negative) 06/20/23 23:40 Urine Urobilinogen Negative (Negative) 06/20/23 23:40 Ur Leukocyte Esterase Negative (Negative) 06/20/23 23:40 Impressions Abdomen/Pelvis CT 06/20/23 22:19 Exam(s): CT ABDOMEN + PELVIS With Contrast IV Amt: 93 cc's EXAM: CT Abdomen and Pelvis With Intravenous Contrast CLINICAL HISTORY: Reason for exam: mid abd pain. TECHNIQUE: Axial computed tomography images of the abdomen and pelvis with intravenous contrast. CTDI is 24.55 mGy and DLP is 1186.5 mGy-cm. Automated exposure control was utilized for the study. A dose lowering technique was utilized adhering to the principles of ALARA. CONTRAST: Patient received 93 cc's of IV contrast COMPARISON: No relevant prior studies available. FINDINGS: Lung bases: Unremarkable. No mass. No consolidation. ABDOMEN: Liver: Hepatic steatosis. Gallbladder and bile ducts: Unremarkable. No calcified stones. No ductal dilation. Pancreas: Unremarkable. No mass. No ductal dilation. Spleen: Unremarkable. No splenomegaly. Adrenals: Unremarkable. No mass. Kidneys and ureters: Unremarkable. No hydronephrosis or delayed nephrogram. Stomach and bowel: Diverticulosis, without acute diverticulitis. No small bowel obstruction. No free intraperitoneal air. PELVIS: Appendix: Normal appendix. Bladder: Decompressed urinary bladder. Reproductive: Unremarkable as visualized. ABDOMEN and PELVIS: Intraperitoneal space: Unremarkable. No free air. No significant fluid collection. Bones/joints: Degenerative changes of the spine. No acute fracture. No dislocation. Soft tissues: Bilateral breast implants. Vasculature: Atherosclerotic changes of the aorta. No abdominal aortic aneurysm. Lymph nodes: Unremarkable. No enlarged lymph nodes. IMPRESSION: 1. No hydronephrosis or delayed nephrogram. 2. Diverticulosis, without acute diverticulitis. No small bowel obstruction. No free intraperitoneal air. Electronically signed by: Yoseph Jones MD 06/21/23 01:17 AM Chest X-Ray 06/21/23 02:18 XR chest 1V portable HISTORY: Shortness of breath. COMPARISON: Chest 11/18/2021. FINDINGS: No pneumothorax. No pleural effusions. The lungs are clear. The heart is normal in size. There is mild elevation of the right hemidiaphragm, unchanged. Poststernotomy changes are again noted. There are calcifications with in the aortic knob. Surgical clips within the right axilla. No evidence for pulmonary edema. IMPRESSION: No significant change compared to the prior study. No acute process. ACT 112: Negative or not required by law. Electronically signed by: Reynaldo Bettencourt M.D. 06/21/2023 7:[address] 06/21/23 10:21 CT chest diagnostic wo con CT DOSE: 600.93 mGy.cm HISTORY: Assess for chest wall abscess. chest pain H/O R breast Reconstruction R/O abscess TECHNIQUE: Multiaxial CT images of the chest were performed without contrast. A dose lowering technique was utilized adhering to the principles of ALARA. COMPARISON: Chest CTA 08/25/2019. Abdomen and pelvis CT 06/20/2023. FINDINGS: No significant skin thickening or subcutaneous fat stranding within the chest wall/breast to suggest an infectious process. Bilateral implants are noted. There is a partially calcified capsule within the right breast implant with minimal adjacent fluid. This may represent an intracapsular rupture of the implant. This remains unchanged. The left implant appears intact. No loculated fluid collections to suggest an abscess. Limited views of the upper abdomen demonstrate a normal liver, spleen, and adrenal glands. Normal esophagus. Calcified plaque within the normal caliber thoracic aorta. The heart is normal in size. No pleural or pericardial effusions. There are poststernotomy changes. No acute fractures identified. No mediastinal or hilar lymphadenopathy. The central airways are patent. No pneumothorax. A few small bibasilar linear densities favor subsegmental atelectasis are scarring. Otherwise, no focal lung consolidations to suggest a pneumonia. No evidence for pulmonary edema. Mild subpleural reticulation at the right upper lobe favors posttreatment changes. This remains stable. IMPRESSION: 1. No evidence for a chest wall abscess. 2. No focal lung consolidations to suggest a pneumonia. 3. There is a partially calcified capsule within the right breast implant with minimal adjacent fluid deep to the capsule between the implant. This may represent an intracapsular rupture of the implant. This remains unchanged. ACT 112: Negative or not required by law. Electronically signed by: Reynaldo Bettencourt M.D. 06/21/2023 11:17 AM Ordered Studies 06/20/23 22:19 CT abd pelvis IV con only Stat 06/21/23 10:21 CT chest diagnostic wo con Urgent Diabetes Follow up Diabetes Follow-up Needed for HgbA1c >9% Hospital Course (1) Acute gastroenteritis: Diarrhea Likely due to Ozempic Rule out infectious Gastroenteritis Stool studies couldn't be obtained as no recurrence of diarrhea Ozempic discontinued for now Right Breast Pain Possible rupture of the implant --CT chest:No evidence for a chest wall abscess. No focal lung consolidations to suggest a pneumonia. There is a partially calcified capsule within the right breast implant with minimal adjacent fluid deep to the capsule between the implant. This may represent an intracapsular rupture of the implant. This remains unchanged. Pain control Discussed with general surgery and plastic surgery on 06/22/23. Suggested no urgent need for surgery and patient can follow-up with plastic surgery as outpatient. CAD S/P CABG PSVT Continue aspirin, Lipitor, isosorbide, metoprolol Hypertension Continue home medications Monitor BP Hyperlipidemia on statin DM II Last HbA1c 12.2 Uncontrolled Continue insulin while hospitalized Monitor BGs Advised to follow up with [facility] as outpatient H/O NAFLD R breast cancer S/P surgery/chemoradiation/history of BRCA gene mutation Planned for breast reconstructive procedure--deferred until DM better controlled as per outpatient notes Anxiety/mood disorder Past tobacco abuse Continue home meds DVT Px: Lovenox SQ Code Status Full Code Disposition Home Total Time Total Time Spent Total Time Spent (In Minutes): 58 minutes Discharge Plan Discharge Items Patient Disposition: Home - Self-Care Reason For Visit: SOB Discharge Diagnosis: Diarrhea--Likely due to Ozempic Right breast implant rupture Uncontrolled diabetes mellitus Condition on Discharge: Good Activity: Per Instructions section Exercise/Sports: Gradually increase as tolerated Non-emergency contact: Primary Care Provider, Surgeon and Specialist Call non-emergency contact if: you have any medication questions, your symptoms worsen, your pain is concerning for you and you have a fever Follow-up/Referrals: Mell Ramos MD [Primary Care Provider] - (Date & Time 06/29/2023 11:20 AM Provider Mell Ramos MD Department [facility] ) Diet: Carb Consistent or DM2 and Heart Healthy Addtl Attending Provider Instructions: Follow up with your Primary Care physician on 06/29/2023 11:20 AM Follow-up with your surgeon for further management of your right breast implant rupture Consider following with your corporate director of human resources as advised. -- Hold taking Ozempic for now until your follow up with your physician. Discuss with your physician for further management of diabetes mellitus as advised. Seek immediate medical attention if your symptoms reoccur or worsen Please take all medications as instructed on discharge list below. Please call if you have any questions or problems. You can reach a [facility] hospitalist on duty at [facility] 24 hours a day by calling [phone] Pending Studies at Discharge: No Stand-Alone Forms: My [facility] Fashion Movement, Smoking Cessation Medications and DC Order Prescriptions: Continued atorvastatin 80 mg tablet 80 mg PO HS aspirin [Jose G Low Dose Aspirin] 81 mg Tablet,Delayed Release (Dr/Ec) 81 mg PO HS acetaminophen [Acetaminophen Extra Strength] 500 mg Tablet 1,000 mg PO TID PRN (Reason: Pain, Mild) isosorbide mononitrate 60 mg tablet extended release 24 hr 60 mg PO QAM pantoprazole 40 mg tablet,delayed release (DR/EC) 40 mg PO DAILYBB metoprolol succinate 100 mg tablet extended release 24 hr 100 mg PO QAM Rx Instructions: TOTAL DOSE 125 MG--TAKES WITH 25 MG TAB. metoprolol succinate 25 mg tablet extended release 24 hr 25 mg PO QAM Rx Instructions: TOTAL DOSE 125 MG--TAKES WITH 100 MG TAB. metformin 500 mg tablet extended release 24 hr 1,000 mg PO QAM insulin glargine [Lantus Solostar U-100 Insulin] 100 unit/mL (3 mL) insulin pen 50 unit SUBCUT HS cyanocobalamin (vitamin B-12) 1,000 mcg Tablet 1,000 mcg PO DAILY nitroglycerin [Nitrostat] 0.4 mg Tablet, Sublingual 0.4 mg sublingual DIRECTED PRN (Reason: Chest Pain) ezetimibe 10 mg tablet 10 mg PO DAILY magnesium oxide 400 mg magnesium Capsule 400 mg PO BID venlafaxine 75 mg capsule,extended release 24hr 75 mg PO AMHS amlodipine 5 mg Tablet 5 mg PO DAILY venlafaxine 37.5 mg tablet 37.5 mg PO QDL lisinopril 2.5 mg tablet 2.5 mg PO QAM cholecalciferol (vitamin D3) [Vitamin D3] 25 mcg (1,000 unit) Capsule 0 mcg PO DAILY Rx Instructions: PT UNSURE OF STRENGTH Held Ozempic 1 mg/dose (4 mg/3 mL) Pen Injector 1 mg SUBCUT WK Hold Instructions: Follow up with your PCP for further instructuions Rx Instructions: WEDNESDAYS Discharge Orders: Discharge Order (Routine); Ordered 06/22/23 Ordered By: Gene Griffin/Other Patient Handouts: Managing Type 2 Diabetes, Special Foot Care for Diabetes Admission Data Admit Date/Time: 06/21/23 02:24 Attending Provider: Gene Grace Admit Provider: Rowdy Peguero Primary Care Provider: Mell Ramos Other Providers: Rowdy Peguero
== END 2023-06-22 16:50 | disposition home or self-care (01) ==
LOC: ED 22:01 → 3N 22:01
DX: F39 Unspecified mood [affective] disorder; Z79.4 Long term (current) use of insulin; Y84.8 Other medical procedures as the cause of abnormal reaction of the patient, or of later complication, without mention of misadventure at the time of the procedure; K52.9 Noninfective gastroenteritis and colitis, unspecified; Z15.01 Genetic susceptibility to malignant neoplasm of breast; Z88.1 Allergy status to other antibiotic agents; R06.02 Shortness of breath; E11.65 Type 2 diabetes mellitus with hyperglycemia; Z87.891 Personal history of nicotine dependence; K57.90 Diverticulosis of intestine, part unspecified, without perforation or abscess without bleeding; Z79.85 Long-term (current) use of injectable non-insulin antidiabetic drugs; R94.31 Abnormal electrocardiogram [ECG] [EKG]; Z79.899 Other long term (current) drug therapy; Z95.1 Presence of aortocoronary bypass graft; Z88.7 Allergy status to serum and vaccine; I10 Essential (primary) hypertension; F41.9 Anxiety disorder, unspecified; K76.0 Fatty (change of) liver, not elsewhere classified; Z79.84 Long term (current) use of oral hypoglycemic drugs; E78.5 Hyperlipidemia, unspecified; T85.43XA Leakage of breast prosthesis and implant, initial encounter; Z88.8 Allergy status to other drugs, medicaments and biological substances; Z90.13 Acquired absence of bilateral breasts and nipples; Z79.82 Long term (current) use of aspirin; Z92.21 Personal history of antineoplastic chemotherapy; E86.0 Dehydration; I25.10 Atherosclerotic heart disease of native coronary artery without angina pectoris; Z92.3 Personal history of irradiation; Z85.3 Personal history of malignant neoplasm of breast